=== PATIENT | female | born 1950 | race Caucasian/White ===

== ENCOUNTER → 2016-08-24 | Outpatient (CLI) | payer OTHER, MEDICAID | LOC: FIMAGING 15:27 | PROVIDERS: ATTEND Internal Medicine | DX: Z12.31 Encounter for screening mammogram for malignant neoplasm of breast (principal); Z85.3 Personal history of malignant neoplasm of breast | CPT/HCPCS: G0202 ==

== ENCOUNTER → 2016-09-21 | Outpatient (CLI) | payer OTHER, MEDICAID | LOC: FIMAGING 14:10 | PROVIDERS: ATTEND Internal Medicine | DX: Z12.39 Encounter for other screening for malignant neoplasm of breast (principal); R92.8 Other abnormal and inconclusive findings on diagnostic imaging of breast; Z85.3 Personal history of malignant neoplasm of breast | CPT/HCPCS: G0206 ==

== ENCOUNTER 2018-05-31 15:36 | Inpatient (IN) | payer OTHER, MEDICAID ==
--- NOTE | 2018-05-31 15:58 | EDPHY ---
H & P Stated Complaint: found down in living room by daughter covered in urine/feces, FTT Time Seen by Provider: 05/31/18 15:38 HPI/ROS: CHIEF COMPLAINT: Confusion, found down covered in feces HISTORY OF PRESENT ILLNESS: The patient presents the emergency department after she was found down by family members today. The patient lives independently but fell earlier today. She was unable to get up today. She was covered in urine and feces. Family endorses symptoms of acute confusion. The patient denies acute headache. The patient does report following. She complains of pain and left ankle and leg. The patient denies any acute numbness or weakness. She denies cough or congestion. Patient denies any diarrhea or gastrointestinal symptoms. The patient is unable to walk secondary to from global weakness. The patient is anticoagulated for a heart valve replacement. She also has a history of diabetes and coronary artery disease. She also has a history of chronic lower extremity edema. The patient also sustained a skin tear to her right upper extremity. She denies any difficulty moving her right arm or discomfort. REVIEW OF SYSTEMS: A comprehensive 10 point review of systems is otherwise negative aside from elements mentioned in the history of present illness. Source: Patient, Family Exam Limitations: No limitations - Personal History Tetanus Vaccine Date: unsure - Medical/Surgical History Hx Asthma: No Hx Chronic Respiratory Disease: No Hx Diabetes: Yes Hx Cardiac Disease: Yes Hx Renal Disease: No Hx Cirrhosis: No Hx Alcoholism: No Hx HIV/AIDS: No Hx Splenectomy or Spleen Trauma: No - Social History Smoking Status: Former smoker - Physical Exam Exam: General Appearance: Obese femoral, disheveled, uncapped Head: Atraumatic Eyes: Pupils equal, round, reactive ENT, Mouth: Dry mucous membranes, no oral trauma Neck: Nontender, trachea midline Respiratory: No chest wall tender, no subcutaneous air, lungs clear bilaterally Cardiovascular: Regular rate and rhythm, 2/6 systolic ejection murmur Abdomen: Abdomen is soft and nontender, pelvis stable Skin: Skin tear noted to right upper extremity Back: No midline T/L/S pain Extremities: Tenderness and swelling and crepitus noted to the left ankle, normal range of motion of the hips noted bilaterally Neurological: Alert and oriented x2, no gross motor deficits noted Constitutional: Initial Vital Signs Temperature (C) 36.5 C 05/31/18 15:45 Heart Rate 83 05/31/18 15:45 Respiratory Rate 16 05/31/18 15:45 Blood Pressure 90/72 L 05/31/18 15:45 O2 Sat (%) 97 05/31/18 15:45 O2 Delivery Mode Room Air O2 (L/minute) 2 Allergies/Adverse Reactions: No Allergies [NKDA] Allergy (Verified 11/05/11 23:47) Home Medications: Medication Instructions Recorded Atorvastatin Calcium [Lipitor 40 40 mg PO HS 05/31/18 mg (*)] Calcitriol [Calcitriol (*)] 0.25 mcg PO TU 05/31/18 Carvedilol [Coreg (*)] 25 mg PO BIDMEAL 05/31/18 DULoxetine [Cymbalta 30 MG (*)] 30 mg PO DAILY 05/31/18 Furosemide [Lasix 20 MG (*)] 60 mg PO BID 05/31/18 Insulin Glargine [Lantus] 50 unit SC DAILY@12 05/31/18 Sodium Bicarbonate [Na Bicarb 650 650 mg PO BID 05/31/18 MG (RX)] Warfarin Sodium [Coumadin 5MG (*)] 2.5 mg PO DAILY16 05/31/18 amLODIPine BESYLATE [Norvasc 10 mg 10 mg PO DAILY 05/31/18 (*)] Medical Decision Making - Diagnostics EKG Interpretation: EKG: Complete interpretation has been separately recorded in the [facility] archive. Summary impression: Atrial fibrillation, rate 78, no ischemic changes noted Imaging Results: Imaging Impressions Chest X-Ray 05/31/18 15:42 Impression: Progression to severe cardiomegaly with findings of mild pulmonary edema/fluid overload, superimposed pneumonia cannot be radiographically excluded. Ankle X-Ray 05/31/18 15:45 Impression: Negative for fracture. Left Ankle Series, 3 Views History: Pain following trauma. Findings: There is an angulated and displaced fracture of the distal shaft of the fibula. There are displaced fractures of the medial and posterior malleoli. The ankle mortise is disrupted with medial subluxation of the distal tibia with respect to the talar dome. Soft tissue swelling is noted and there is also subcutaneous edema in the lower leg. Vascular calcifications are noted. Impression: Trimalleolar fracture dislocation of the left ankle. Pelvis X-Ray 05/31/18 15:45 Impression: Negative for fracture. Left Ankle Series, 3 Views History: Pain following trauma. Findings: There is an angulated and displaced fracture of the distal shaft of the fibula. There are displaced fractures of the medial and posterior malleoli. The ankle mortise is disrupted with medial subluxation of the distal tibia with respect to the talar dome. Soft tissue swelling is noted and there is also subcutaneous edema in the lower leg. Vascular calcifications are noted. Impression: Trimalleolar fracture dislocation of the left ankle. Cervical Spine CT 05/31/18 17:06 Impression: 1. There is no acute intracranial abnormality identified on this unenhanced study. 2. Accelerated atrophy with extensive chronic microvascular ischemic gliosis. 3. 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 4. Asymmetric subcortical encephalomalacia in the posterior superior left frontal region, new since 2012. 5. Bilateral temporomandibular joint subluxations. 6. Posterior/superior right parietal subgaleal seroma, with no intra or extra- axial fluid collection. There is no evidence of a skull fracture. UNENHANCED CT SCAN OF THE CERVICAL SPINE Technique: A multidetector unenhanced helical CT scan was obtained from the clivus caudally through the upper thoracic spine, with images reformatted at 1.50 mm increments, and are reviewed in soft tissue, bone, and lung windows. Parasagittal and paracoronal reconstructed images are reviewed on the workstation. The DFOV is 12.5 cm. A dose reduction protocol was used. Findings: The patient's head is tilted to the right and there is a mild levo- cervical curvature; there is also reversal of the normal cervical lordosis. These could be related to positioning and/or underlying muscle spasm. The vertebral body heights are maintained. There is a trace degenerative retrolisthesis at C3-C4 and a trace degenerative anterolisthesis at C4-C5, and there is degenerative disk space narrowing at C3-C4, C4-C5, C5-C6, and C6-C7. There are accompanying ventral and dorsal traction osteophytes. There is no acute fracture identified. There is no facet malalignment. The interspinous distances are normal. The lateral masses of C1 and C2 are aligned, and the base and the tip of the dens are normal. The predental space is normal. There is no paravertebral or epidural hematoma observed. The visualized prevertebral soft tissues are unremarkable. There appears to be a small right posterior pleural effusion. There is no evidence of an apical pneumothorax. The visualized superior mediastinal structures are notable for some atherosclerotic calcifications and prior sternotomy wires. At the C1-C2 level, there is a normal AP canal diameter. At the C2-C3 level, there is preservation of disk space height, with no significant central canal or neural foraminal stenosis. There is some asymmetric left-sided facet hypertrophy. At the C3-C4 level, there is moderate severe degenerative disk space narrowing with the aforementioned trace retrolisthesis. There is a dorsal disk osteophyte complex which results in a moderate degree of central canal stenosis. There is uncovertebral degenerative spondylosis resulting in moderate right neural foraminal stenosis. There is also some accompanying facet hypertrophy seen bilaterally at this level. At the C4-C5 level, there is moderate degenerative disk space narrowing. There is a dorsal disk osteophyte complex resulting in moderate central canal stenosis. Bilateral facet hypertrophy and uncovertebral degenerative spondylosis result in mild degrees of bilateral neural foraminal narrowing, left greater than right. At the C5-C6 level, there is severe degenerative disk space narrowing. There is a dorsal disk osteophyte complex and severe central canal stenosis, narrowing the AP diameter to 8.6 mm. There is facet hypertrophy and uncovertebral degenerative spondylosis, resulting in mild to moderate bilateral neural foraminal stenoses. At the C6-C7 level, there is severe degenerative disk space narrowing, and there is a dorsal disk osteophyte complex which results in severe central canal stenosis with an AP canal diameter 7.8 mm. Facet hypertrophy and uncovertebral degenerative spondylosis results in moderate bilateral neural foraminal stenosis. At the C7-T1 level, there is mild bilateral facet hypertrophy. The central canal neural foramina remain patent. Impression: 1. Secondary features suggestive of underlying muscle spasm. 2. There is no acute fracture identified. 3. Multilevel advanced degenerative spondylosis and disk disease with facet osteoarthropathy resulting in variable degrees of central canal neural foraminal stenoses, as above-detailed, greatest at the C5-C6 and C6-C7 levels. If there is further clinical concern regarding the patient's symptoms, correlative MR imaging could be considered, if otherwise not contraindicated. Findings were discussed with Marcello Lemus MD at 18:08, on 05/31/2018. Head CT 05/31/18 17:06 Impression: 1. There is no acute intracranial abnormality identified on this unenhanced study. 2. Accelerated atrophy with extensive chronic microvascular ischemic gliosis. 3. 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 4. Asymmetric subcortical encephalomalacia in the posterior superior left frontal region, new since 2012. 5. Bilateral temporomandibular joint subluxations. 6. Posterior/superior right parietal subgaleal seroma, with no intra or extra- axial fluid collection. There is no evidence of a skull fracture. UNENHANCED CT SCAN OF THE CERVICAL SPINE Technique: A multidetector unenhanced helical CT scan was obtained from the clivus caudally through the upper thoracic spine, with images reformatted at 1.50 mm increments, and are reviewed in soft tissue, bone, and lung windows. Parasagittal and paracoronal reconstructed images are reviewed on the workstation. The DFOV is 12.5 cm. A dose reduction protocol was used. Findings: The patient's head is tilted to the right and there is a mild levo- cervical curvature; there is also reversal of the normal cervical lordosis. These could be related to positioning and/or underlying muscle spasm. The vertebral body heights are maintained. There is a trace degenerative retrolisthesis at C3-C4 and a trace degenerative anterolisthesis at C4-C5, and there is degenerative disk space narrowing at C3-C4, C4-C5, C5-C6, and C6-C7. There are accompanying ventral and dorsal traction osteophytes. There is no acute fracture identified. There is no facet malalignment. The interspinous distances are normal. The lateral masses of C1 and C2 are aligned, and the base and the tip of the dens are normal. The predental space is normal. There is no paravertebral or epidural hematoma observed. The visualized prevertebral soft tissues are unremarkable. There appears to be a small right posterior pleural effusion. There is no evidence of an apical pneumothorax. The visualized superior mediastinal structures are notable for some atherosclerotic calcifications and prior sternotomy wires. At the C1-C2 level, there is a normal AP canal diameter. At the C2-C3 level, there is preservation of disk space height, with no significant central canal or neural foraminal stenosis. There is some asymmetric left-sided facet hypertrophy. At the C3-C4 level, there is moderate severe degenerative disk space narrowing with the aforementioned trace retrolisthesis. There is a dorsal disk osteophyte complex which results in a moderate degree of central canal stenosis. There is uncovertebral degenerative spondylosis resulting in moderate right neural foraminal stenosis. There is also some accompanying facet hypertrophy seen bilaterally at this level. At the C4-C5 level, there is moderate degenerative disk space narrowing. There is a dorsal disk osteophyte complex resulting in moderate central canal stenosis. Bilateral facet hypertrophy and uncovertebral degenerative spondylosis result in mild degrees of bilateral neural foraminal narrowing, left greater than right. At the C5-C6 level, there is severe degenerative disk space narrowing. There is a dorsal disk osteophyte complex and severe central canal stenosis, narrowing the AP diameter to 8.6 mm. There is facet hypertrophy and uncovertebral degenerative spondylosis, resulting in mild to moderate bilateral neural foraminal stenoses. At the C6-C7 level, there is severe degenerative disk space narrowing, and there is a dorsal disk osteophyte complex which results in severe central canal stenosis with an AP canal diameter 7.8 mm. Facet hypertrophy and uncovertebral degenerative spondylosis results in moderate bilateral neural foraminal stenosis. At the C7-T1 level, there is mild bilateral facet hypertrophy. The central canal neural foramina remain patent. Impression: 1. Secondary features suggestive of underlying muscle spasm. 2. There is no acute fracture identified. 3. Multilevel advanced degenerative spondylosis and disk disease with facet osteoarthropathy resulting in variable degrees of central canal neural foraminal stenoses, as above-detailed, greatest at the C5-C6 and C6-C7 levels. If there is further clinical concern regarding the patient's symptoms, correlative MR imaging could be considered, if otherwise not contraindicated. Findings were discussed with Marcello Lemus MD at 18:08, on 05/31/2018. CT head without contrast: Subgaleal hematoma without evidence of skull fracture or intracranial hemorrhage. New haynes-white moderate changes noted. CT cervical spine without contrast: Negative for acute fracture. ED Course/Re-evaluation: The patient presents the ED after mechanical fall earlier today which resulted in a trimalleolar ankle fracture. The patient is anticoagulated. She has no complaints of headache but does seem slightly confused per family. She has taken for noncontrast CT scan of the head and cervical spine. The patient had a Archuleta catheter placed in the emergency department. The patient is placed in a 3 way posterior ortho glass splint. Consultation was made with Dr. Chandrakant Rodriguez from the orthopedic service who will see the patient in consultation. Differential Diagnosis: Differential diagnosis considered includes intracranial hemorrhage, cervical spine fracture, ankle fracture, pelvic fracture, pneumonia, urinary tract infection, rhabdomyolysis, renal failure - Data Points Laboratory Results: 05/31/18 05/31/18 16:25 16:00 Creatine Kinase 59 IU/L IU/L (0-156) Urine Color YELLOW Urine Appearance HAZY Urine pH 5.0 (5.0-7.5) Ur Specific Butler 1.017 (1.002-1.030) Urine Protein 2+ H (NEGATIVE) Urine Ketones NEGATIVE (NEGATIVE) Urine Blood 1+ H (NEGATIVE) Urine Nitrate NEGATIVE (NEGATIVE) Urine Bilirubin NEGATIVE (NEGATIVE) Urine Urobilinogen 2.0 EU H EU (0.2-1.0) Ur Leukocyte Esterase 1+ H (NEGATIVE) Urine RBC 1-3 /hpf /hpf (0-3) Urine WBC 25-50 /hpf H /hpf (0-3) Ur Epithelial Cells TRACE /lpf /lpf (NONE-1+) Amorphous Sediment PRESENT /hpf /hpf (NONE-1+) Urine Bacteria 1+ /hpf H /hpf (NONE SEEN) Urine Mucus TRACE /lpf /lpf (NONE-1+) Urine Glucose NEGATIVE (NEGATIVE) Medications Given: Discontinued Medications Ceftriaxone Sodium 2 gm/ (Sodium Chloride) 50 mls @ 100 mls/hr IV EDNOW ONE PRN Reason: Protocol Stop: 05/31/18 18:29 Last Admin: 05/31/18 18:26 Dose: 50 mls Departure - Departure Disposition: [facility] Acute Clinical Impression: UTI (urinary tract infection), Peripheral edema, Skin tear of right upper arm without complication, Atrial fibrillation Trimalleolar fracture of ankle, closed Qualifiers: Encounter type: initial encounter Laterality: left Qualified Code(s): S82.852A - Displaced trimalleolar fracture of left lower leg, initial encounter for closed fracture Condition: Fair
[2018-05-31 16:23] LABS: CREATINE KINASE 59 IU/L (0-156)
[2018-05-31 17:49] LABS: PLATELET COUNT 235 10^3/uL (150-400)
[2018-05-31 18:00] LABS: INR 3.49 (0.83-1.16); PROTIME(PATIENT) 33.2 SEC (12.0-15.0)
[2018-05-31] MEDS ORDERED: ONDANSETRON 4 MG/2 ML VIAL IVP PRN (18:24)
[2018-05-31] MEDS ORDERED: HYDROmorphONE/DILAUDID 1 MG/ML INJ IVP PRN (18:24)
[2018-05-31] MEDS ORDERED: D50W 25 GM/50 ML SYR IVP PRN (18:27)
--- NOTE | 2018-05-31 18:37 | CPEKG ---
Test Reason : OPEN Blood Pressure : / mmHG Vent. Rate : 078 BPM Atrial Rate : 000 BPM P-R Int : 156 ms QRS Dur : 075 ms QT Int : 461 ms P-R-T Axes : 000 081 086 degrees QTc Int : 526 ms Atrial fibrillation Borderline right axis deviation Low voltage, extremity and precordial leads Probable anteroseptal infarct, old Prolonged QT interval Confirmed by Marcello Lemus ([id number]) on 05/31/2018 6:37:08 PM Referred By: Prabhakar Gibson Confirmed By:Marcello Lemus
[2018-05-31] MEDS ORDERED: FUROSEMIDE 40 MG/4 ML VIAL IVP ONE (19:20)
[2018-05-31] MEDS ORDERED: CALCITRIOL 0.25 MCG CAP PO SCH (19:30)
--- NOTE | 2018-05-31 19:44 | PDGENHP ---
History and Physical - Chief Complaint Mechanical fall with injury - History of Present Illness 67 y/o female w/extensive medical history including mechanical aortic valve replaced in 2007, CVA in 2011, obesity, diabetes II, and chronic kidney disease presents to the ED via ambulance after family members found pt lying on the ground in her urine and feces w/altered mental status. She reported her left leg and ankle hurt, subsequently fracturing her left ankle. This is my first encounter w/the pt, my first time reviewing her past medical history which is quite extensive. She is alert and oriented x 3, answering my questions appropriately however seems to have some residual cognitive impairment. She tells me that she has at her bedside commode which she used today and as she was getting off it and trying to get back into bed, she slipped on something that was wet on the hardwood floors and fell; she was unable to pull herself back up d/t generalized weakness. She reports she did not hit her head or LOC. Denies chest pain, SOB, palpitations, lightheadedness. The only pain she feels is to her left ankle. She is being admitted for further work-up, treatment and monitoring. History Information - Allergies/Home Medication List Allergies/Adverse Reactions: No Allergies [NKDA] Allergy (Verified 11/05/11 23:47) Home Medications: Atorvastatin Calcium [Lipitor 40 mg (*)] 40 mg PO HS 05/31/18 [Last Taken Unknown] Calcitriol [Calcitriol (*)] 0.25 mcg PO TU 05/31/18 [Last Taken 05/29/18] Carvedilol [Coreg (*)] 25 mg PO BIDMEAL 05/31/18 [Last Taken Unknown] DULoxetine [Cymbalta 30 MG (*)] 30 mg PO DAILY 05/31/18 [Last Taken Unknown] Furosemide [Lasix 20 MG (*)] 60 mg PO BID 05/31/18 [Last Taken Unknown] Insulin Glargine [Lantus] 50 unit SC DAILY@12 05/31/18 [Last Taken 05/28/18] Sodium Bicarbonate [Na Bicarb 650 MG (RX)] 650 mg PO BID 05/31/18 [Last Taken Unknown] Warfarin Sodium [Coumadin 5MG (*)] 2.5 mg PO DAILY16 05/31/18 [Last Taken 04/22/ 19] amLODIPine BESYLATE [Norvasc 10 mg (*)] 10 mg PO DAILY 05/31/18 [Last Taken Unknown] I have personally reviewed and updated: family history, medical history, social history, surgical history Past Medical History: Chronic kidney disease, AAA s/p endograft, RA w/Felty's syndrome, hx of subdural hematoma, embolic stroke (2011), depression, atrial fibrillation, lumbar radiculopathy - Past Medical History coronary artery disease, CVA, diabetes type 2, hypertension, hyperlipidemia, TIA - Surgical History Additional surgical history: Aortic valve replacement w/mechanical valve (2007) , splenectomy (2009), cholecystectomy - Family History Positive for: non-pertinent - Social History Smoking Status: Former smoker Alcohol Use: None Drug Use: None Additional social history: Lives independently, has 2 cats Review of Systems Review of Systems: ROS: 10pt was reviewed & negative except for what was stated in HPI & below Physical Exam Physical Exam: Lab data and imaging reviewed. White blood count: 7.94 Hemoglobin hematocrit: 12.6 and 40.6 Platelet count: 235 Sodium: 141 Potassium: 5.4 Chloride: 111 Carbon dioxide: 15 BUN/Cr: 59/1.6 Creatinine kinase: 59 INR: 3.49 Urinalysis: Protein 2+, blood 1+, urinary bili chin 2.0, leukocyte x-rays 1+, white blood cells 25-50, bacteria 1+ Chest x-ray: Compared to chest x-ray from 27/01 progression to severe cardiomegaly with findings of mild pulmonary edema/fluid overload however auscultated lungs did not hear any crackles. Ankle x-ray: Trimalleolar fracture dislocation of left ankle Pelvic x-ray: No definite fracture or other acute osseous abnormality is identified. Imaging is limited d/t body habitus. Bone alignment is normal. Degenerative changes are seen involving the hips as well as the lower lumbar spine. Cervical spine CT: There is no acute fracture identified Head CT: No acute intracranial abnormality identified; stable old lacunar infarct left cerebellum compared to 2012 EKG: Atrial fibrillation, 78 bpm Temp Pulse Resp BP Pulse Ox 36.6 C 85 16 133/89 H 93 05/31/18 19:24 05/31/18 19:24 05/31/18 19:24 05/31/18 19:24 05/31/18 19:24 O2 (L/minute) 2 Constitutional: obese, uncomfortable, unkempt Eyes: PERRL, anicteric sclera, EOMI Ears, Nose, Mouth, Throat: hearing normal, ears appear normal, no oral mucosal ulcers, poor dentition, dry mucous membranes Cardiovascular: no murmur, rub, or gallop, irregularly irregular Peripheral Pulses: 1+: dorsalis-pedis (R), dorsalis-pedis (L) Respiratory: reduced air movement Gastrointestinal: soft, non-tender abdomen, no palpable masses, other ( Hypoactive BS) Genitourinary: perez in urethra Skin: other (RUE wrapped w/gauze d/t apparent skin tear; bruising noted to RUE, fragile appearing skin) Musculoskeletal: pain with ROM (Left ankle), generalized weakness Neurologic: sensation intact bilaterally, other (During my evaluation, she answered my questions appropriately and was A&Ox3) Psychiatric: interacting appropriately, not anxious, not encephalopathic, thought process linear Lymph, Heme, Immunologic: no cervical LAD, no supraclavicular LAD Lab Data & Imaging Review 05/31/18 17:40 05/31/18 17:38 WBC 7.94 10^3/uL (3.80-9.50) 05/31/18 17:40 RBC 4.12 10^6/uL (4.18-5.33) L 05/31/18 17:40 Hgb 12.6 g/dL (12.6-16.3) 05/31/18 17:40 Hct 40.6 % (38.0-47.0) 05/31/18 17:40 MCV 98.5 fL (81.5-99.8) 05/31/18 17:40 MCH 30.6 pg (27.9-34.1) 05/31/18 17:40 MCHC 31.0 g/dL (32.4-36.7) L 05/31/18 17:40 RDW 19.8 % (11.5-15.2) H 05/31/18 17:40 Plt Count 235 10^3/uL (150-400) 05/31/18 17:40 MPV 11.5 fL (8.7-11.7) 05/31/18 17:40 Neut % (Auto) 82.1 % (39.3-74.2) H 05/31/18 17:40 Lymph % (Auto) 8.9 % (15.0-45.0) L 05/31/18 17:40 [place] % (Auto) 7.2 % (4.5-13.0) 05/31/18 17:40 Eos % (Auto) 0.9 % (0.6-7.6) 05/31/18 17:40 Baso % (Auto) 0.5 % (0.3-1.7) 05/31/18 17:40 Nucleat RBC Rel Count 0.5 % (0.0-0.2) H 05/31/18 17:40 Absolute Neuts (auto) 6.52 10^3/uL (1.70-6.50) H 05/31/18 17:40 Absolute Lymphs (auto) 0.71 10^3/uL (1.00-3.00) L 05/31/18 17:40 Absolute Monos (auto) 0.57 10^3/uL (0.30-0.80) 05/31/18 17:40 Absolute Eos (auto) 0.07 10^3/uL (0.03-0.40) 05/31/18 17:40 Absolute Basos (auto) 0.04 10^3/uL (0.02-0.10) 05/31/18 17:40 Absolute Nucleated RBC 0.04 10^3/uL (0-0.01) H 05/31/18 17:40 Immature Gran % 0.4 % (0.0-1.1) 05/31/18 17:40 Immature Gran # 0.03 10^3/uL (0.00-0.10) 05/31/18 17:40 Platelet Estimate ADEQUATE (ADEQ) 05/31/18 17:40 Polychromasia 1+ H 05/31/18 17:40 Oval Macrocytes 2+ H 05/31/18 17:40 Elliptocytes 1+ H 05/31/18 17:40 Acanthocytes (Spur) 2+ H 05/31/18 17:40 Schistocytes 1+ H 05/31/18 17:40 PT 33.2 SEC (12.0-15.0) H 05/31/18 17:40 INR 3.49 (0.83-1.16) H 05/31/18 17:40 APTT 45.9 SEC (23.0-38.0) H 05/31/18 17:40 Sodium 141 mEq/L (135-145) 05/31/18 17:38 Potassium 5.4 mEq/L (3.5-5.2) H 05/31/18 17:38 Chloride 111 mEq/L (97-110) H 05/31/18 17:38 Carbon Dioxide 15 mEq/l (22-31) L 05/31/18 17:38 Anion Gap 15 mEq/L (6-14) H 05/31/18 17:38 BUN 59 mg/dL (7-23) H 05/31/18 17:38 Creatinine 1.6 mg/dL (0.6-1.0) H 05/31/18 17:38 Estimated GFR 32 05/31/18 17:38 Glucose 149 mg/dL (70-100) H 05/31/18 17:38 Calcium 9.1 mg/dL (8.5-10.4) 05/31/18 17:38 Total Bilirubin 1.8 mg/dL (0.1-1.4) H 05/31/18 17:38 AST 28 IU/L (14-46) 05/31/18 17:38 ALT 31 IU/L (9-52) 05/31/18 17:38 Alkaline Phosphatase 425 IU/L (38-126) H 05/31/18 17:38 Creatine Kinase 59 IU/L (0-156) 05/31/18 16:00 Total Protein 7.7 g/dL (6.3-8.2) 05/31/18 17:38 Albumin 3.5 g/dL (3.5-5.0) 05/31/18 17:38 Urine Color YELLOW 05/31/18 16:25 Urine Appearance HAZY 05/31/18 16:25 Urine pH 5.0 (5.0-7.5) 05/31/18 16:25 Ur Specific [place] 1.017 (1.002-1.030) 05/31/18 16:25 Urine Protein 2+ (NEGATIVE) H 05/31/18 16:25 Urine Ketones NEGATIVE (NEGATIVE) 05/31/18 16:25 Urine Blood 1+ (NEGATIVE) H 05/31/18 16:25 Urine Nitrate NEGATIVE (NEGATIVE) 05/31/18 16:25 Urine Bilirubin NEGATIVE (NEGATIVE) 05/31/18 16:25 Urine Urobilinogen 2.0 EU (0.2-1.0) H 05/31/18 16:25 Ur Leukocyte Esterase 1+ (NEGATIVE) H 05/31/18 16:25 Urine RBC 1-3 /hpf (0-3) 05/31/18 16:25 Urine WBC 25-50 /hpf (0-3) H 05/31/18 16:25 Ur Epithelial Cells TRACE /lpf (NONE-1+) 05/31/18 16:25 Amorphous Sediment PRESENT /hpf (NONE-1+) 05/31/18 16:25 Urine Bacteria 1+ /hpf (NONE SEEN) H 05/31/18 16:25 Urine Mucus TRACE /lpf (NONE-1+) 05/31/18 16:25 Urine Glucose NEGATIVE (NEGATIVE) 05/31/18 16:25 Assessment & Plan Plan: 67 y/o female w/extensive medical history presenting w/mechanical fall w/injury and altered mental status, subsequently fracturing her left ankle and having a RUE skin tear. Her vital signs are the following: Blood pressure 143/67, heart rate 78, respirations 18, temperature 36.5 degrees, oxygen saturation 95% on 2 L nasal cannula #Trimalleolar fracture of ankle, closed (Acute) -Orthopedics has been consulted. Dr. Rodriguez to surgically repair ankle. Initially thought this would happen tomorrow morning however d/t pt's extensive medical history and current complications - most likely will not happen but will keep her NPO at midnight for the slight chance. -Splinted in ED; perez catheter placed -Pain management PO/IVP PRN -PT/OT to evaluate and treat -LLE NWB -Message out to Dr. Rodriguez to discuss case #Peripheral edema/Pulmonary HTN -Lasix IVP one time tonight; cont home Lasix in AM -CBC/CMP in AM #Skin tear of right upper arm without complication -Supportive care PRN #Urinary tract infection -Urine culture pending -Asymptomatic, afebrile, no leukocytosis -Received Rocephin in ED; will hold off on continuing abx for the time being and wait for culture unless she becomes symptomatic -CBC/CMP in AM Other chronic medical problems: #Diabetes II: Checking A1c. ISS in house, glucose checks TID before meals. Cont home glargine. #Obesity: BMI 36, complicates all levels of care. Dietary consult. #CKD IV: Dr. Silva has been her water treatment operator. It was believed CKD was caused from her DM medications (metformin). BUN/Cr 59/1.6 which is stable for her. She is on sodium bicarbonate and calcitriol. Avoid nephrotoxic agents. #Hx of CVA: Occurred in 2011. #Mechanical aortic valve replacement: anti-coagulated w/coumadin w/INR being 3.49 w/therapeutic range 2.5-3.5. Holding coumadin tonight and will recheck INR in AM. Ideally, her INR decreases and can initiate a heparin drip. ECHO pending; ECHO performed in November 2017, revealed EF 55%; left atrium severely dilated and no prosthesis regurg; mild to moderate tricuspid valve regurg and RVSP 46 mmHg. #Atrial fibrillation: Cont tele monitoring. #HTN: cont home amlodipine and carvedilol Diet: Carb-controlled, NPO at midnight tonight for possible surgery in AM however unlikely Code: Full VTE ppx: SCDs Dispo: Admit to inpatient
--- NOTE | 2018-05-31 19:45 | HOSPPROG ---
Hospitalist Progress Note Assessment/Plan: Case discussed with Polly Atkinson TARIFF CLERK. Agree with plan outlined in her note with the following exceptions: Briefly, 67yo F with mechanical aortic valve on warfarin, atrial fibrillation, thromboembolic stroke while off anticoagulation in 2011, CKD stage 3, infrarenal AAA s/p stent, T2DM presents from home after being found down. She remembers slipping on her urine this morning and fell between her bed and a table. She did not lose consciousness or strike her head. No recent chest pain or worsening shortness of breath. She has chronic leg edema which hasn't changed significantly. She does have chronic difficulty with walking due to prior stroke and arthritis. Her daughter found her this afternoon. She was reportedly confused at that time. She was brought in by EMS. In the ED, she was found to have a trimalleolar fracture of her left ankle. CT of her head did not show any intracranial bleed. Dr Rodriguez was consulted and her left ankle was splinted. Exam: Alert, oriented, morbidly obese. Irregularly irregular with normal HR on cardiac exam. Lungs diminished at bases without wheezing. Abdomen distended but soft and nontender. Archuleta catheter in place. 1+ bilateral leg edema. Labs: WBC 7.9, hgb 12.6, plts 235, Na 141, K 5.4, Cl 111, CO2 15, BUN 59, Cr 1.6 , glucose 149. Total bilirubin 1.8, alk phos 425. INR 3.49. CK 59. UA with 2+ protein, 1+ blood, 1+ leukocyte esterase, 25-50wbcs, 1+ bacteria. ECG: Atrial fibrillation with ventricular rates in the 70s, low voltage, no right heart strain, no ischemic ST-T segment changes (interp/reviewed by me). CXR: Sternotomy wires and AV replacement. Significant cardiomegaly. Mild- moderate pulmonary edema. Difficult to assess for pleural effusions. No clear pneumonia (interp/reviewed by me). Additional Imaging. Left ankle x-ray: Trimalleolar fracture and dislocation. Pelvic x-ray: No fracture. CT head: No acute intracranial abnormality. Accelerated atrophy. Stable old lacunar infarct in left cerebellum. CT c-spine: Secondary features suggestive of underlying muscle spasm. No acute fracture identified. Assessment/Plan: #Left trimalleolar fracture: Dr Rodriguez consulted, planning on operative management (see below). Currently splinted. Pain management. #Need for anticoagulation: She is at high risk of thromboembolic event off anticoagulation as she has a mechanical AVR, atrial fibrillation, and history of thromboembolic stroke while off anticoagulation in 2011. I recommend holding her warfarin and administering IV heparin once INR<2.5. Once INR is low enough to perform surgery, the IV heparin can be stopped just prior to the operation. The patient can then be bridged with Lovenox post-operatively. I attempted to contact Dr Rodriguez this evening to discuss this plan but was unable to get ahold of him. In my opinion, reversing her anticoagulation and proceeding with surgery tomorrow would put her at too high a risk of another thromboembolic stroke. #Volume overload: CXR appears wet and bilateral leg edema. Will give 60mg IV lasix this evening (on 60mg BID at home) and get a TTE. #Mechanical fall: No e/o rhabdo. She uses a walker. Lives alone. PT and OT when appropriate. #Hypoxia: Requiring 2L. Mild pulm edema. Given her habitus, suspect she may require O2 chronically. Continuous pulse ox. Outpatient FABIAN eval. #Mechanical AVR: Stable gradients on 11/2017 echo. INR goal 2.5-3.5. #H/o cardioembolic CVA: Occurred in 2011 after she had been off anticoagulation for subdural hematoma. Residual mild R weakness. #Atrial fibrillation: Rates controlled. [id number]. Anticoagulation as above. #CKD: Follows with Dr Silva. Suspect near baseline Cr of 1.6. Continue sodium bicarb. #Asymptomatic pyuria: S/p IV ceftriaxone in ED. Will defer additional antibiotics as she is asymptomatic. Can follow urine culture. #Osteoporosis: Meets criteria as she had fracture from standing height. Outpatient management. #T2DM: Resume home glargine and start SSI. #Hyperkalemia: Mild. No ECG changes. Will diurese as above and recheck. #Acute metabolic encephalopathy: Resolved on my examination. #H/o subdural hematoma in 2010 (non-operative management) #H/o infrarenal AAA s/p stent graft repair. 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 She is not neutropenic here. #HTN: Continue coreg and amlodipine. Code: full Dispo: admit as inpatient, will likely require >2 midnights given complexity of medical care Objective: Vital Signs Temp Pulse Resp BP Pulse Ox 36.6 C 85 16 133/89 H 93 05/31/18 19:24 05/31/18 19:24 05/31/18 19:24 05/31/18 19:24 05/31/18 19:24 Laboratory Results 05/31/18 17:40 05/31/18 17:38 05/30/18 05/31/18 06/01/18 05:59 05:59 05:59 Output Total 150 Balance -150 PT 33.2 SEC (12.0-15.0) H 05/31/18 17:40 INR 3.49 (0.83-1.16) H 05/31/18 17:40 ICD10 Worksheet Patient Problems: Problems Problem Status Onset Atrial fibrillation Acute Peripheral edema Acute Skin tear of right upper arm without complication Acute Trimalleolar fracture of ankle, closed Acute UTI (urinary tract infection) Acute Cerebral infarction Active
[2018-05-31] MEDS: INSULIN GLARGINE 100 UNITS/ML UNIT SC SCH (20:58)
[2018-05-31] MEDS: ATORVASTATIN CALCIUM 40 MG TAB PO SCH (20:58)
[2018-05-31] MEDS: SODIUM BICARBONATE 650 MG TAB PO SCH (20:58)
[2018-05-31] MEDS: oxyCODONE IR 5 MG TAB PO PRN (21:27)
[2018-05-31] MEDS: CALCITRIOL 0.25 MCG CAP PO SCH (23:21)
[2018-06-01] MEDS: ACETAMINOPHEN 325 MG TAB PO PRN ×3 (01:58→16:24)
[2018-06-01 05:24] LABS: PLATELET COUNT 244 10^3/uL (150-400)
[2018-06-01 05:25] LABS: INR 3.38 (0.83-1.16); PROTIME(PATIENT) 32.4 SEC (12.0-15.0)
--- NOTE | 2018-06-01 08:10 | PDMN ---
Medical Necessity Medical necessity: MCG S100 ankle fx, closed, ORIF ( pend) : extended care needed due to pts comorbidities. 67 yo F with fall found to have L trimalleolar fx. , [facility], [facility], Afib, thromboembolic stroke while off anticoagulation in 2011, CKD stage 3, infrarenal AAA s/p stent, T2DM, morbid obesity, PT high risk for sgy will need to monitor INR prior to sgy, hypoxia req 2L O2, vol. overload will give IV Lasix, UTI, anticipate > 2 MN ongoing med nec care- further monitoring and tx ( sgy pend)
[2018-06-01] MEDS: SODIUM BICARBONATE 650 MG TAB PO SCH ×3 (08:26→21:56)
[2018-06-01] MEDS: FUROSEMIDE 20 MG TAB PO SCH ×2 (08:27→15:12)
[2018-06-01] MEDS: DULoxetine 30 MG CAP PO SCH (08:27)
[2018-06-01] MEDS: INSULIN LISPRO 100 UNIT/ML SC SCH ×3 (08:28→18:16)
[2018-06-01] MEDS: CARVEDILOL 25 MG TAB PO SCH ×2 (08:28→18:20)
[2018-06-01] MEDS ORDERED: FUROSEMIDE 20 MG TAB PO SCH (09:00)
--- NOTE | 2018-06-01 09:27 | HOSPPROG ---
Hospitalist Progress Note Assessment/Plan: #Left trimalleolar fracture: Dr Rodriguez consulted, planning on operative management (see below). Currently splinted. Pain management. -likely SNF at [place], she is agreeable #High thromboembolic risk: -given atrial fibrillation, mech AVR and embolic CVA, needs anticoagulation up to surgery and no reversal -heparin gtt once INR <2.5 then Lovenox/Coumadin bridge -d/w Dr. Rodriguez. Plan on surgery once INR <2 #Volume overload -cont IV lasix, monitor lytes -weight, I&O #h/o cardioembolic CVA: 2011 when off ACf for SDH #Atrial fibrillation: CHADsVasc 7; very high-risk for recurrent event off AC #CKD: Cr at BL, cont bicarb #Pyuria: no sxs. Hold off abx #Osteoporosis: Meets criteria as she had fracture from standing height. Outpatient management. #DM2: glargine and start SSI. #Hyperkalemia: resolved after diuresis. No peaked T-waves (EKG personally reviewed) #Acute metabolic encephalopathy: Resolved #LUE edema: diuresis. INR therapeutic #H/o subdural hematoma in 2010 (non-operative management) #H/o infrarenal AAA: s/p stent graft repair. 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 She is not neutropenic here. #HTN: Coreg and amlodipine. #Diet: low Na, fluid restriction Disp: inpatient admission for INR, surgical procedure Subjective: min in pain in right foot Objective: Vital Signs Temp Pulse Resp BP Pulse Ox 37.1 C 81 19 148/73 H 92 06/01/18 07:29 06/01/18 07:29 06/01/18 07:29 06/01/18 07:29 06/01/18 07:29 Laboratory Results 06/01/18 04:37 06/01/18 04:37 05/31/18 06/01/18 06/02/18 05:59 05:59 05:59 Intake Total 500 Output Total 1750 Balance -1250 PT 32.4 SEC (12.0-15.0) H 06/01/18 04:37 INR 3.38 (0.83-1.16) H 06/01/18 04:37 - Time Spent With Patient Time Spent with Patient: greater than 35 minutes Time Spent with Patient: Greater than 35 minutes spent on this patients care, greater than 50% of time spent counseling, educating, and coordinating care regarding the above mentioned plan. - Physical Exam Constitutional: obese, other (anxious, tearful) Ears, Nose, Mouth, Throat: moist mucous membranes Cardiovascular: regular rate and rhythym, edema (+ pitting edema right leg) Respiratory: No inspiratory crackles Gastrointestinal: normoactive bowel sounds Musculoskeletal: other (left foot splinted. LUE with +1 edema) Neurologic: AAOx3, CN II-XII Intact Psychiatric: anxious ICD10 Worksheet Patient Problems: Problems Problem Status Onset Atrial fibrillation Acute Peripheral edema Acute Skin tear of right upper arm without complication Acute Trimalleolar fracture of ankle, closed Acute UTI (urinary tract infection) Acute Cerebral infarction Active
--- NOTE | 2018-06-01 09:37 | ASMTLACE ---
HERIBERTO Acuity / Level of Answers: Yes Care: Did the patient have an inpatient admission? Comorbidities - select Answers: Cerebrovascular disease all that apply (CVA, TIA, aneurysms, vasc ular dementia) Coronary Artery Disease Diabetes (uncontrolled or controlled) Moderate or severe liver or renal disease Other Notes: HTN; HLD # of Emergency department Answers: 1-2 visits in the last 6 months Social determinants Answers: Mental health diagnosis (anxiety, depression, pers onality disorders, etc.) Score: 16 Date Signed: 06/01/2018 09:36 AM Electronically Signed By:Eileen Fuller
[2018-06-01] MEDS: oxyCODONE IR 5 MG TAB PO PRN ×2 (12:16→15:12)
--- NOTE | 2018-06-01 13:32 | GCON ---
[f rep st] CONSULTATION ORTHOPEDIC CONSULTATION DATE OF CONSULTATION: 06/01/2018 REASON FOR CONSULTATION: Ankle fracture. HISTORY OF PRESENT ILLNESS: The patient is a pleasant 67-year-old female who lives alone who fell at some point, was found down, brought to the emergency department, found to have a trimalleolar left a nkle fracture. This was closed reduced in the ER. She has been admitted to the [facility]. I was consulted for discussion of the ankle fracture. I reviewed thi s case with Dr. Falk today. Given her high risk for thromboembolic event currently on Coumadin, wh ich her INR today was 3.38, she will need to go on to heparin once her INR comes down less than 2.5 a nd will plan on surgery once her Coumadin is less than 2 and she is otherwise medically stable. PRIOR MEDICAL HISTORY: Coronary artery disease, cerebrovascular accident, type 2 diabetes, hypertens ion, hyperlipidemia, TIAs. SURGICAL HISTORY: Aortic valve replacement in 2007, splenectomy, cholecystectomy. MEDICATIONS: See attached medication list. ALLERGIES: No known drug allergies. SOCIAL HISTORY: She does live alone. Does not smoke or drink alcohol. She is a former smoker. PHYSICAL EXAM: GENERAL: She is alert and oriented x3. Answers questions appropriately. VITAL SIGN S: Today on the floor, blood pressure is 148/73, heart rate 81, respiratory rate is 18, oxygen satur ation is 92% on 2 L, temperature is 37.1. HEENT: Normocephalic, atraumatic. Extraocular muscles in tact. NECK: Supple. There is no lymphadenopathy. No JVD. CHEST: Clear to auscultation. EXTREMI TIES: She has multiple scratches on her right arm, these were dressed. Left ankle is splinted. The splint is fitting appropriately. She has some swelling in the toes sensation. Light touch intact t o all her toes. Brisk capillary refill. X-RAYS: Three views of the ankle, trimalleolar ankle fracture. ASSESSMENT: Displaced ankle fracture, left. PLAN: Will work on getting her INR less than 2. We will get her medically optimized. She will need to go on heparin when she is less than 2.5. She is at a high risk for thromboembolic event. Contin ue the splint. Continue nonweightbearing left lower extremity.. /[id number]/MODL
[2018-06-01] MEDS: INSULIN GLARGINE 100 UNITS/ML UNIT SC SCH (13:37)
--- NOTE | 2018-06-01 14:56 | ECHO ---
[email or web address] [address] Main: [phone] Echocardiography Examination Transthoracic Name: DAMON CAMPOS MR#: [id number] Study Date: 06/01/2018 Study Time: 07:55 AM Date of : 1950 Age: 67 year(s) Height: 170.2 cm (67 in.) Weight: 104.33 kg (230 lb.) BSA: 2.15 m2 Gender: Female Examination: Echo Contrast: Image Quality: Adequate parasternal window, technically Rhythm: Atrial fibrillation difficult apical window. Heart Rate: 81 bpm BP: 148 mmHg/73 mmHg Indication: Questionable syncopal event, pre-op, h/o AVR Procedure Staff Referring Physician: Spreading Machine Operator: Lynnette Martin [facility] Reading Physician: Geetha Serrano MD Requesting Provider: Ordering Physician: Samina Atkinson Indication: Questionable syncopal event, pre-op, h/o AVR Measurements Chambers AV/MV Label Value Normal Value Label Value Normal Value LVOT VTI 19.5 cm (18cm - 22cm) AV PGmax 16 mmHg LVDd, 2D 4.8 cm (3.9cm - 5.3cm) AV PGmean 11 mmHg LVDs, 2D 3.2 cm (2.1cm - 4cm) AV Vmax 1.98 m/s IVSd, 2D 1.1 cm (0.6cm - 1.1cm) MV E Vmax 1.54 m/s LVPWd, 2D 1.1 cm MV VTI 30.4 cm LVEF, 2D 61 % (54% - 74%) MV PGmax 10 mmHg LVOT PGmean 2 mmHg MV PGmean 5 mmHg LVOT Vmean 0.64 m/s MV PHT 0.08 s RVDd, 2D 4.7 cm (1.9cm - 3.8cm) MVA PHT 2.8 cm2 TAPSE 2 cm MV PHT 78 ms LADs, 2D 4.3 cm (2.7cm - 3.8cm) TV/PV Additional Vessels Label Value Normal Value Label Value Normal Value RA Pressure 15 mmHg AoRoot, MM 2.6 cm (2.2cm - 3.7cm) RVSP 53 mmHg TR Pmax 38 mmHg TR Vmax 3.08 m/s VT End lam Alexei 0.92 cm/s PV PGmax 7 mmHg Patient: DAMON CAMPOS Study Date: 06/01/2018 Page 1 of 3 07:55 AM PV Vmax, Caliper 1.32 m/s (0.6m/s - 0.9m/s) Conclusions 1. The left ventricle is normal in size. Mild concentric LVH. Normal LV systolic function of 60-65% without obvious regional wall motion abnormality. 2. The right ventricle is moderately dilated with normal RV systolic function. 3. Moderate left atrial and moderate right atrial dilation. 4. mild mitral regurgitation. 5. The aortic valve is a bioprosthesis without regurgitation or stenosis. 6. Moderate to severe tricuspid regurgitation with moderate pulmonary hypertension estimated at 53 mm of mercury. 7. Compared with 12/01/2017 the degree of tricuspid regurgitation and pulmonary hypertension have increased. The right ventricle is more dilated. Findings Left Ventricle: Left ventricle is normal in size. Normal global systolic left ventricular function. EF range is estimated at 60 % - 65 %. There is mild concentric left ventricular hypertrophy. Although no diagnostic regional wall motion abnormality was identified, this possibility cannot be completely excluded on the basis of this study. Unable to assess Diastolic Dysfunction due to atrial fibrillation/a flutter. Right Ventricle: Moderately dilated right ventricle. Right ventricular systolic function is normal. Left Atrium: The left atrium is moderately dilated. Right Atrium: The right atrium is moderately dilated. Mitral Valve: Mild mitral regurgitation. No mitral valve stenosis. There is mitral calcification. There is mild mitral thickening. There is mitral annular calcification. Aortic Valve: The aortic valve is a bioprosthesis. It exhibited normal function. No prosthesis regurgitation. Aortic Valve Measurements AV Vmax is 1.98 m/s. AV Vmean is 1.53 m/s. AV PGmax is 16 mmHg. AV PGmean is 11 mmHg. LVOT VTI / AV VTI is 0.42. Tricuspid Valve: Moderate to severe tricuspid regurgitation. No tricuspid valve stenosis. Right Ventricular systolic pressure is measured at 53 mmHg. Pulmonary artery pressure moderately increased. Pulmonic Valve: Moderate pulmonic valve regurgitation is present. Aorta: The aortic root size in M-mode measures 2.6 cm. The aortic root exhibits normal size. Aorta Measurements AoRoot, MM is 2.6 cm. IVC: The inferior vena cava is dilated. The respirophasic change in diameter is less than 50%. Pericardium: Trivial pericardial effusion. Exam Details Procedure Ordered: Echo Procedure Status: Routine study Image Quality: Adequate parasternal window, technically difficult apical window. Facility Location: Cardiac Echo 1 Patient: DAMON CAMPOS Study Date: 06/01/2018 Page 2 of 3 07:55 AM (No Signature Object) Patient: DAMON CAMPOS Study Date: 06/01/2018 Page 3 of 3 07:55 AM [id number]
--- NOTE | 2018-06-01 16:28 | ASMTCMCOM ---
CM Note CM Note Notes: Reviewed chart, pt admitted to hospital after being found down. She has an ankle fracture and will need surgical repair. Patient lives alone in an apt with 2 cats. PT/OT pending surgery DC Plan: TBD Date Signed: 06/01/2018 04:28 PM Electronically Signed By:Denise Munoz RN
[2018-06-01] MEDS: ATORVASTATIN CALCIUM 40 MG TAB PO SCH (21:56)
[2018-06-02 04:49] LABS: PLATELET COUNT 222 10^3/uL (150-400)
[2018-06-02 04:58] LABS: INR 2.95 (0.83-1.16); PROTIME(PATIENT) 29.2 SEC (12.0-15.0)
[2018-06-02] MEDS: oxyCODONE IR 5 MG TAB PO PRN ×2 (05:45→23:20)
[2018-06-02] MEDS: INSULIN LISPRO 100 UNIT/ML SC SCH ×3 (08:20→18:26)
[2018-06-02] MEDS: FUROSEMIDE 20 MG TAB PO SCH ×2 (09:48→14:54)
[2018-06-02] MEDS: DULoxetine 30 MG CAP PO SCH (09:50)
[2018-06-02] MEDS: SODIUM BICARBONATE 650 MG TAB PO SCH ×2 (09:50→21:38)
[2018-06-02] MEDS: CARVEDILOL 25 MG TAB PO SCH ×2 (09:52→18:23)
[2018-06-02] MEDS ORDERED: INSULIN GLARGINE 100 UNITS/ML UNIT SC SCH (10:56)
--- NOTE | 2018-06-02 13:58 | SOAPPROG ---
SOAP Progress Note Assessment/Plan: Assessment: Left ankle trimalleolar fracture - secondary to fall on 05-31-18; closed reduced in ER on 05-31-18 Plan: Continue to hold anticoagulation. Most recent INR 2.95. Dr. Rodriguez wants to begin heparin at 2.5 and will perform surgery once INR reaches 2.0 Continue NWBing on left lower extremity Keep splint clean, dry and intact Continue pain management Continue PT/OT efforts Subjective: Patient states she is feeling much more relaxed today. She does not have any significant pain in the left ankle at this time. She is waiting to have surgery on her left ankle. Currently Dr. Rodriguez is waiting for her INR to come down to 2.5 to start heparin and perform surgery once INR reaches 2.0. She reports not being able to get up for PT/OT. She reports feeling too tired and would prefer to just rest today. States she may try therapy tomorrow. Patient denies having shortness of breath, chest pain, fever, chills, headache, nausea. Objective: Vital Signs Temp Pulse Resp BP Pulse Ox 36.4 C 82 16 154/73 H 93 06/02/18 11:41 06/02/18 12:00 06/02/18 11:41 06/02/18 11:41 06/02/18 11:41 Laboratory Results 06/02/18 04:25 06/02/18 04:25 06/01/18 06/02/18 06/03/18 05:59 05:59 05:59 Intake Total 500 1540 118 Output Total 1750 900 Balance -1250 640 118 PT 29.2 SEC (12.0-15.0) H 06/02/18 04:25 INR 2.95 (0.83-1.16) H 06/02/18 04:25 Patient resting comfortably in bed, no acute distress. Nasal canula is in place. On the right proximal-mid forearm, she has wound dressings in place for skin tear. There is diffuse edema in the LUE. Various regions of ecchymosis noted along the upper extremities. LLE: Short leg splint is clean, dry and intact. Visible skin is intact. No edema distally in toes. Skin is warm to touch. She can actively move toes. Intact to light touch distally. Capillary refill < 3 seconds. ICD10 Worksheet Patient Problems: Problems Problem Status Onset Atrial fibrillation Acute Peripheral edema Acute Skin tear of right upper arm without complication Acute Trimalleolar fracture of ankle, closed Acute UTI (urinary tract infection) Acute Cerebral infarction Active
--- NOTE | 2018-06-02 14:39 | HOSPPROG ---
Hospitalist Progress Note Assessment/Plan: 67 year old female with hx of afib, CKD, RA, and multiple other medical problems admitted with a left trimalleolar fracture. #Left trimalleolar fracture: Dr Rodriguez consulted, planning on operative management (see below). Currently splinted. Pain management. INR 2.9 today. -likely SNF at [place], she is agreeable -start heparin gtt once INR below 2.5 #High thromboembolic risk: -given atrial fibrillation, mech AVR and embolic CVA, needs anticoagulation up to surgery and no reversal -heparin gtt once INR <2.5 then Lovenox/Coumadin bridge -d/w Dr. Rodriguez. 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 creatinine climbing today. Follows with Dr. Silva. If creatinine continues to climb, will consult nephrology while here. #Pyuria: no sxs. Hold off abx #Osteoporosis: Meets criteria as she had fracture from standing height. Outpatient management. #DM2: glargine and start SSI. Hypoglycemic today on home dose of 50 units of lantus. Will decrease 20% and cont ssi. #Hyperkalemia: resolved after diuresis. No peaked T-waves (EKG personally reviewed) #Acute metabolic encephalopathy: Resolved #LUE edema: diuresis. INR therapeutic #H/o subdural hematoma in 2010 (non-operative management) #H/o infrarenal AAA: s/p stent graft repair. 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 She is not neutropenic here. #HTN: Coreg and amlodipine. #Diet: low Na, fluid restriction Subjective: felt shaky with low blood glucose today. pain adequately controlled. Not eating great. Objective: Vital Signs Temp Pulse Resp BP Pulse Ox 36.4 C 82 16 154/73 H 93 06/02/18 11:41 06/02/18 12:00 06/02/18 11:41 06/02/18 11:41 06/02/18 11:41 Laboratory Results 06/02/18 04:25 06/02/18 04:25 06/01/18 06/02/18 06/03/18 05:59 05:59 05:59 Intake Total 500 1540 118 Output Total 1750 900 Balance -1250 640 118 PT 29.2 SEC (12.0-15.0) H 06/02/18 04:25 INR 2.95 (0.83-1.16) H 06/02/18 04:25 - Physical Exam Constitutional: chronically ill appearing Eyes: PERRL, anicteric sclera Ears, Nose, Mouth, Throat: moist mucous membranes, hearing normal, ears appear normal Cardiovascular: regular rate and rhythym, systolic murmur Respiratory: reduced air movement Gastrointestinal: normoactive bowel sounds, soft, non-tender abdomen Genitourinary: no bladder fullness, no bladder tenderness Skin: warm, normal color Musculoskeletal: generalized weakness Neurologic: AAOx3, sensation intact bilaterally Psychiatric: interacting appropriately, not anxious, not encephalopathic Lymph, Heme, Immunologic: no cervical LAD ICD10 Worksheet Patient Problems: Problems Problem Status Onset Atrial fibrillation Acute Peripheral edema Acute Skin tear of right upper arm without complication Acute Trimalleolar fracture of ankle, closed Acute UTI (urinary tract infection) Acute Cerebral infarction Active
[2018-06-02] MEDS: ACETAMINOPHEN 325 MG TAB PO PRN ×2 (14:53→21:37)
[2018-06-02] MEDS: ATORVASTATIN CALCIUM 40 MG TAB PO SCH (21:38)
[2018-06-03] MEDS: ACETAMINOPHEN 325 MG TAB PO PRN ×2 (02:56→16:29)
[2018-06-03 05:02] LABS: PLATELET COUNT 232 10^3/uL (150-400)
[2018-06-03 05:08] LABS: INR 2.61 (0.83-1.16); PROTIME(PATIENT) 26.6 SEC (12.0-15.0)
[2018-06-03] MEDS: INSULIN LISPRO 100 UNIT/ML SC SCH ×3 (08:47→17:33)
--- NOTE | 2018-06-03 09:02 | SOAPPROG ---
HERNANDO Progress Note Assessment/Plan: Assessment: Left ankle trimalleolar fracture - secondary to fall on 05-31-18; closed reduced in ER on 05-31-18 Plan: Continue to hold anticoagulation. Most recent INR 2.61. Dr. Rodriguez wants to begin heparin once INR < 2.5 and will perform surgery once INR < 2.0 Continue NWBing on left lower extremity Keep splint clean, dry and intact Continue pain management Continue PT/OT efforts Continue D/C planning - she is agreeable to SNF 06/03/18 09:06 Subjective: Patient states her left ankle is not painful, splint is comfortable. She was feeling a bit shaky and dizzy earlier this morning, believes this was due to low blood sugar. Her glucose was 44 this morning, after having juice she was given D5, 25 mg. Patient reports she is feeling better now. No other major complaints or concerns at this time. Objective: Vital Signs Temp Pulse Resp BP Pulse Ox 36.7 C 67 17 137/81 H 91 L 06/03/18 08:00 06/03/18 08:00 06/03/18 08:00 06/03/18 08:00 06/03/18 08:00 Laboratory Results 06/03/18 04:22 06/03/18 04:22 06/02/18 06/03/18 06/04/18 05:59 05:59 05:59 Intake Total 1540 678 Output Total 900 1250 Balance 640 -572 PT 26.6 SEC (12.0-15.0) H 06/03/18 04:22 INR 2.61 (0.83-1.16) H 06/03/18 04:22 Patient resting comfortably in bed, no acute distress. Nasal canula is in place. LLE: Short leg splint is clean, dry and intact. Visible skin is intact. No edema distally in toe. She can actively move all toes. Grossly NVI distally. ICD10 Worksheet Patient Problems: Problems Problem Status Onset Atrial fibrillation Acute Peripheral edema Acute Skin tear of right upper arm without complication Acute Trimalleolar fracture of ankle, closed Acute UTI (urinary tract infection) Acute Cerebral infarction Active
[2018-06-03] MEDS: DULoxetine 30 MG CAP PO SCH (09:10)
[2018-06-03] MEDS: CARVEDILOL 25 MG TAB PO SCH ×2 (09:10→17:25)
[2018-06-03] MEDS: FUROSEMIDE 20 MG TAB PO SCH ×2 (09:10→16:27)
[2018-06-03] MEDS: SODIUM BICARBONATE 650 MG TAB PO SCH ×2 (09:12→20:05)
[2018-06-03] MEDS ORDERED: INSULIN GLARGINE 100 UNITS/ML UNIT SC SCH (10:31)
--- NOTE | 2018-06-03 12:18 | ASMTCMCOM ---
CM Note CM Note Notes: Met with pt, PT recommending SNF although pt has not had surgery yet. MD waiting for INR to go down to 2.0. She is agreeable to SNF, would like referral sent to [place] because that's where her daughter lives. Referral sent to [facility] and they can accept. DC Plan: SNF/ [facility] Date Signed: 06/03/2018 12:17 PM Electronically Signed By:Denise Munoz RN
--- NOTE | 2018-06-03 16:02 | HOSPPROG ---
Hospitalist Progress Note Assessment/Plan: 67 year old female with hx of afib, CKD, RA, and multiple other medical problems admitted with a left trimalleolar fracture. #Left trimalleolar fracture: Dr Rodriguez consulted, planning on operative management (see below). Currently splinted. Pain management. INR 2.9 today. -likely SNF at [place], she is agreeable -start heparin gtt once INR below 2.5 #High thromboembolic risk: -given atrial fibrillation, mech AVR and embolic CVA, needs anticoagulation up to surgery and no reversal -heparin gtt once INR <2.5 then Lovenox/Coumadin bridge -d/w Dr. Rodriguez. Plan on surgery once INR <2 -heparin 2.6 this am. repeat this afternoon and if below 2.5 start heparin gtt. 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 creatinine climbing today. Follows with Dr. Silva. If creatinine continues to climb, will consult nephrology while here. #Pyuria: no sxs. Hold off abx #Osteoporosis: Meets criteria as she had fracture from standing height. Outpatient management. #DM2: I decreasd her lantus yesterday from 50 to 35 and she still had hypoglycemia. Lantus held today. She is not eating much at all. Will hold lantus altogethe and provide ssi. If develops hyperglycemia will restart low dose lantus. #Hyperkalemia: resolved after diuresis. No peaked T-waves (EKG personally reviewed) #Acute metabolic encephalopathy: Resolved #LUE edema: diuresis. INR therapeutic #H/o subdural hematoma in 2010 (non-operative management) #H/o infrarenal AAA: s/p stent graft repair. 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 She is not neutropenic here. #HTN: Coreg and amlodipine. #Diet: low Na, fluid restriction Subjective: no complaints. trying to eat better Objective: Vital Signs Temp Pulse Resp BP Pulse Ox 36.7 C 74 19 145/64 H 91 L 06/03/18 15:13 06/03/18 15:13 06/03/18 15:13 06/03/18 15:13 06/03/18 15:13 Laboratory Results 06/03/18 04:22 06/03/18 04:22 06/02/18 06/03/18 06/04/18 05:59 05:59 05:59 Intake Total 1540 678 330 Output Total 900 1250 Balance 640 -572 330 PT 26.6 SEC (12.0-15.0) H 06/03/18 04:22 INR 2.61 (0.83-1.16) H 06/03/18 04:22 - Physical Exam Constitutional: chronically ill appearing, unkempt Eyes: PERRL, anicteric sclera, EOMI Ears, Nose, Mouth, Throat: moist mucous membranes, hearing normal, ears appear normal, no oral mucosal ulcers Cardiovascular: regular rate and rhythym, no murmur, rub, or gallop Respiratory: no respiratory distress, no rales or rhonchi, clear to auscultation Gastrointestinal: normoactive bowel sounds, soft, non-tender abdomen, no palpable masses Genitourinary: no bladder fullness, no bladder tenderness, no renal bruits Skin: no rashes or abrasions, no fluctuance, no induration Musculoskeletal: full muscle strength, no muscle tenderness, normal joint ROM Neurologic: AAOx3, sensation intact bilaterally Psychiatric: interacting appropriately, not anxious, not encephalopathic, thought process linear Lymph, Heme, Immunologic: no cervical LAD, no supraclavicular LAD ICD10 Worksheet Patient Problems: Problems Problem Status Onset Atrial fibrillation Acute Peripheral edema Acute Skin tear of right upper arm without complication Acute Trimalleolar fracture of ankle, closed Acute UTI (urinary tract infection) Acute Cerebral infarction Active
[2018-06-03 16:58] LABS: INR 2.37 (0.83-1.16); PROTIME(PATIENT) 24.7 SEC (12.0-15.0)
[2018-06-03] MEDS: ATORVASTATIN CALCIUM 40 MG TAB PO SCH (20:05)
[2018-06-04] MEDS: HEPARIN 10,000 UNIT/10 ML MDV (1,000 UNIT/ML) IVP PRN (00:58)
[2018-06-04] MEDS: HEPARIN/DEXTROSE 500 ML IV SCH (00:59)
[2018-06-04] MEDS: oxyCODONE IR 5 MG TAB PO PRN (01:10)
[2018-06-04 07:28] LABS: PLATELET COUNT 243 10^3/uL (150-400)
[2018-06-04 07:41] LABS: INR 2.44 (0.83-1.16); PROTIME(PATIENT) 25.3 SEC (12.0-15.0)
[2018-06-04] MEDS ORDERED: SODIUM CL NASAL 45 ML BTL EACHNARE PRN (08:11)
[2018-06-04] MEDS: OXYMETAZOLINE 30 ML NASAL SPRAY EACHNARE SCH ×2 (09:00→21:43)
[2018-06-04] MEDS: FUROSEMIDE 20 MG TAB PO SCH ×2 (09:10→15:09)
[2018-06-04] MEDS: CARVEDILOL 25 MG TAB PO SCH ×2 (09:11→18:16)
[2018-06-04] MEDS: SODIUM BICARBONATE 650 MG TAB PO SCH ×2 (09:11→21:42)
[2018-06-04] MEDS: DULoxetine 30 MG CAP PO SCH (09:13)
[2018-06-04] MEDS: ACETAMINOPHEN 325 MG TAB PO PRN ×2 (09:39→16:45)
[2018-06-04] MEDS: INSULIN LISPRO 100 UNIT/ML SC SCH ×3 (11:25→18:27)
--- NOTE | 2018-06-04 14:10 | HOSPPROG ---
Hospitalist Progress Note Assessment/Plan: 67 year old female with hx of afib, CKD, RA, and multiple other medical problems admitted with a left trimalleolar fracture. #Left trimalleolar fracture: Dr Rodriguez consulted, planning on operative management (see below). Currently splinted. Pain management. INR 2.9 today. -likely SNF at [place], she is agreeable -start heparin gtt once INR below 2.5 #High thromboembolic risk: -given atrial fibrillation, mech AVR and embolic CVA, needs anticoagulation up to surgery and no reversal -INR now below 2.5 so started on heparin gtt -cont heparin until after surgery than bridge Epistaxis- has had intermittent epistaxis since yesterday. Will try placing lido /epi/afrin soaked cotton in nare with nasal clamp. 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 creatinine climbing today. Follows with Dr. Silva. If creatinine continues to climb, will consult nephrology while here. #Pyuria: no sxs. Hold off abx #Osteoporosis: Meets criteria as she had fracture from standing height. Outpatient management. #DM2: I decreasd her lantus yesterday from 50 to 35 and she still had hypoglycemia. Lantus held today. She is not eating much at all. Will hold lantus altogethe and provide ssi. If develops hyperglycemia will restart low dose lantus. #Hyperkalemia: resolved after diuresis. No peaked T-waves (EKG personally reviewed) #Acute metabolic encephalopathy: Resolved #LUE edema: diuresis. INR therapeutic #H/o subdural hematoma in 2010 (non-operative management) #H/o infrarenal AAA: s/p stent graft repair. 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 She is not neutropenic here. #HTN: Coreg and amlodipine. #Diet: low Na, fluid restriction Subjective: nose is bleeding persistently. No other complaints. Objective: Vital Signs Temp Pulse Resp BP Pulse Ox 36.7 C 77 14 139/52 H 94 04/27/19 11:06 06/04/18 11:06 06/04/18 11:06 06/04/18 11:06 06/04/18 11:06 Laboratory Results 06/04/18 07:20 06/04/18 07:20 06/03/18 06/04/18 06/05/18 05:59 05:59 05:59 Intake Total 678 905 Output Total 1250 700 Balance -572 205 PT 25.3 SEC (12.0-15.0) H 06/04/18 07:20 INR 2.44 (0.83-1.16) H 06/04/18 07:20 - Physical Exam Constitutional: chronically ill appearing, obese Eyes: PERRL, anicteric sclera, EOMI Ears, Nose, Mouth, Throat: other (dried blood in mouth, nares with blood from left nares.) Cardiovascular: regular rate and rhythym, no murmur, rub, or gallop, systolic murmur Respiratory: no respiratory distress, no rales or rhonchi, clear to auscultation Gastrointestinal: normoactive bowel sounds, soft, non-tender abdomen, no palpable masses Genitourinary: no bladder fullness, no bladder tenderness, no renal bruits Skin: no rashes or abrasions, no fluctuance, no induration Musculoskeletal: generalized weakness Neurologic: AAOx3, sensation intact bilaterally Psychiatric: interacting appropriately, not anxious, not encephalopathic, thought process linear Lymph, Heme, Immunologic: no cervical LAD, no supraclavicular LAD ICD10 Worksheet Patient Problems: Problems Problem Status Onset Atrial fibrillation Acute Peripheral edema Acute Skin tear of right upper arm without complication Acute Trimalleolar fracture of ankle, closed Acute UTI (urinary tract infection) Acute Cerebral infarction Active
--- NOTE | 2018-06-04 17:34 | SOAPPROG ---
SOAP Progress Note Assessment/Plan: Assessment: Continued bleeding from the left nare despite packing with merocel sponge. Plan: Remove merocel packing and place Rapid Rhino balloon packing. Procedure: Merocel sponge removed. Continuous blood ooze from L nare. Suctioned. 4.5cm Rapid Rhino placed in the left nare following dousing gauze covering with afrin. Inflated. Good hemostasis achieved. Recommend packing remain in place for 7 days. Keflex or amoxicillin while packing in place. Please call me for packing removal: 06/04/18 17:30 Subjective: Continued bleeding despite placement of Douglas packing to left nare. Objective: Vital Signs Temp Pulse Resp BP Pulse Ox 36.6 C 66 15 126/60 H 93 06/04/18 15:43 06/04/18 15:43 06/04/18 15:43 06/04/18 15:43 06/04/18 15:43 Laboratory Results 06/04/18 07:20 06/04/18 07:20 06/03/18 06/04/18 06/05/18 05:59 05:59 05:59 Intake Total 678 905 Output Total 1250 700 Balance -572 205 PT 25.3 SEC (12.0-15.0) H 06/04/18 07:20 INR 2.44 (0.83-1.16) H 06/04/18 07:20 Physical Exam - Physical Exam General Appearance: alert, no apparent distress, obese EENT: PERRL/EOMI (Left nasal packing in place. Mild Bloody ooze anteriorly. ), No pharynx normal (No bright red blood in the op/oc. Old/dried blood at mucosal surfaces.) Neck: normal inspection Respiratory: No stridor ICD10 Worksheet Patient Problems: Problems Problem Status Onset Atrial fibrillation Acute Peripheral edema Acute Skin tear of right upper arm without complication Acute Trimalleolar fracture of ankle, closed Acute UTI (urinary tract infection) Acute Cerebral infarction Active
--- NOTE | 2018-06-04 20:12 | GCON ---
[f rep st] CONSULTATION ENT CONSULTATION CHIEF COMPLAINT: Epistaxis, left. HISTORY OF PRESENT ILLNESS: This is a 67-year-old female with atrial fibrillation, CKD, RA, with mul tiple medical problems who is currently anticoagulated. She has had intermittent epistaxis that she notes is exacerbated by her picking crusts in her nose. This has been more constant since yesterday and has exacerbated today. She has not responded to treatment with Afrin-soaked cotton or nasal clam ps. As such, ENT consultation was called. REVIEW OF SYSTEMS: Negative for other HEENT complaints. FAMILY HISTORY: Noncontributory. MEDICATIONS: Reviewed. PAST MEDICAL HISTORY: Pertinent for anticoagulation and epistaxis. PHYSICAL EXAM: VITAL SIGNS: Blood pressure 126/60, heart rate 66, respiratory rate 15, O2 saturatio n 93% on 2.5 L of humidified face mask, temperature 36.6. GENERAL: Alert, interactive. GENERAL HEAD AND FACE: Normocephalic. Generally symmetric head and f acial features. EARS: Bilateral pinnae and canals are nontender and nonerythematous. No obvious ot orrhea. Outer canals appear clear. EYES: EOMI. NOSE: Partly bloody soaked gauze packing emanatin g from the left nasal cavity. Right naris is unremarkable. ORAL CAVITY/OROPHARYNX: No mucosal lesi ons. Age-appropriate dentition. There is a dried bloody coating on multiple mucosal surfaces and th e tongue. Posterior oropharynx is free of bright red blood. NECK: Supple without palpable mass or adenopathy. NEUROLOGIC: Cranial nerves 2 through 12 grossly intact. ASSESSMENT: A 67-year-old female with left-sided epistaxis. Given her history, she would be appropr iate for packing. PROCEDURE: Gauze was removed from the left naris. Anterior rhinoscopy showed some mild bloody ooze emanating from the anterior septum. A Duoglas pack was placed and appeared to allow for hemostasis. PLAN: The patient will be appropriate for blood pressure control. Would recommend Afrin to the nose 3 times daily to the site of the packing. Nasal clamp as needed. /[id number]
[2018-06-04] MEDS: ATORVASTATIN CALCIUM 40 MG TAB PO SCH (21:42)
[2018-06-04] MEDS: SODIUM CL NASAL 45 ML BTL EACHNARE SCH (21:44)
[2018-06-05] MEDS: HEPARIN/DEXTROSE 500 ML IV SCH ×2 (03:10→14:40)
[2018-06-05] MEDS: SODIUM CL NASAL 45 ML BTL EACHNARE SCH ×4 (06:01→21:19)
[2018-06-05] MEDS: DULoxetine 30 MG CAP PO SCH (08:26)
[2018-06-05] MEDS: SODIUM BICARBONATE 650 MG TAB PO SCH ×2 (08:27→21:16)
[2018-06-05] MEDS: CARVEDILOL 25 MG TAB PO SCH ×2 (08:28→18:11)
[2018-06-05] MEDS: FUROSEMIDE 20 MG TAB PO SCH ×2 (08:29→14:38)
[2018-06-05] MEDS: OXYMETAZOLINE 30 ML NASAL SPRAY EACHNARE SCH ×2 (08:34→21:18)
[2018-06-05] MEDS: INSULIN LISPRO 100 UNIT/ML SC SCH ×3 (09:35→18:11)
[2018-06-05] MEDS: ACETAMINOPHEN 325 MG TAB PO PRN ×2 (10:08→21:50)
--- NOTE | 2018-06-05 10:46 | SOAPPROG ---
SOAP Progress Note Assessment/Plan: Assessment: Plan: 06/05/18 10:44 S/P trimalleolar ankle fx closed reduced in ED INR 2.4 on heparin Possible ORIF Wednesday afternoon, ideally would like INR closer to 2 NPO after breakfast recheck INR in am Subjective: epistaxis yesterday ENT consulted Ankle comfortable Objective: Splint c/d/i minimal swelling moving toes brisk cap refill Vital Signs Temp Pulse Resp BP Pulse Ox 36.6 C 71 17 135/67 H 93 06/05/18 07:33 06/05/18 08:28 06/05/18 07:33 06/05/18 08:28 06/05/18 07:33 Laboratory Results 06/05/18 03:00 06/04/18 07:20 06/04/18 06/05/18 06/06/18 05:59 05:59 05:59 Intake Total 905 1083 Output Total 700 700 Balance 205 383 PT 25.3 SEC (12.0-15.0) H 06/04/18 07:20 INR 2.44 (0.83-1.16) H 06/04/18 07:20 ICD10 Worksheet Patient Problems: Problems Problem Status Onset Atrial fibrillation Acute Peripheral edema Acute Skin tear of right upper arm without complication Acute Trimalleolar fracture of ankle, closed Acute UTI (urinary tract infection) Acute Cerebral infarction Active
--- NOTE | 2018-06-05 12:56 | HOSPPROG ---
Hospitalist Progress Note Assessment/Plan: 67 year old female with hx of afib, CKD, RA, and multiple other medical problems admitted with a left trimalleolar fracture. #Left trimalleolar fracture: Dr Rodriguez consulted, planning on operative management (see below). Currently splinted. Pain management. INR 2.9 today. -likely SNF at [place], she is agreeable -On heparin gtt -possible OR in am, ortho would like INR approx 2. #High thromboembolic risk: -given atrial fibrillation, mech AVR and embolic CVA, needs anticoagulation up to surgery and no reversal -INR now below 2.5 so started on heparin gtt -cont heparin until after surgery than bridge Epistaxis- Discussed with ent who placed rhino rocket. Needs to remain in place for 7 days. On prophy abx with augmentin Hypoxia- says she does not normally require oxygen but has been on 2-3 liters since admission. Does not sound wet on exam. 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 creatinine climbing today. Follows with Dr. Silva. creatinine up from baseline, Repeat pending, if elevated may hold lasix. #Pyuria: no sxs. Hold off abx #Osteoporosis: Meets criteria as she had fracture from standing height. Outpatient management. #DM2: I decreasd her lantus yesterday from 50 to 35 and she still had hypoglycemia. Lantus held today. She is not eating much at all. Will hold lantus altogethe and provide ssi. If develops hyperglycemia will restart low dose lantus. #Hyperkalemia: resolved after diuresis. No peaked T-waves (EKG personally reviewed) #Acute metabolic encephalopathy: Resolved #LUE edema: diuresis. INR therapeutic #H/o subdural hematoma in 2010 (non-operative management) #H/o infrarenal AAA: s/p stent graft repair. 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 She is not neutropenic here. #HTN: Coreg and amlodipine. #Diet: low Na, fluid restriction Subjective: wants the balloon out of her nose. tired. Objective: Vital Signs Temp Pulse Resp BP Pulse Ox 36.6 C 64 18 123/62 H 93 06/05/18 11:24 06/05/18 11:24 06/05/18 11:24 06/05/18 11:24 06/05/18 11:24 Laboratory Results 06/05/18 03:00 06/04/18 07:20 06/04/18 06/05/18 06/06/18 05:59 05:59 05:59 Intake Total 905 1083 Output Total 700 700 Balance 205 383 PT 25.3 SEC (12.0-15.0) H 06/04/18 07:20 INR 2.44 (0.83-1.16) H 06/04/18 07:20 - Physical Exam Constitutional: no apparent distress, appears nourished, not in pain, obese Eyes: PERRL, anicteric sclera, EOMI Ears, Nose, Mouth, Throat: moist mucous membranes, hearing normal, ears appear normal, no oral mucosal ulcers Cardiovascular: regular rate and rhythym, no murmur, rub, or gallop Respiratory: reduced air movement Gastrointestinal: normoactive bowel sounds, soft, non-tender abdomen, no palpable masses Genitourinary: no bladder fullness, no bladder tenderness, no renal bruits Skin: no rashes or abrasions, no fluctuance, no induration Musculoskeletal: full muscle strength, no muscle tenderness, normal joint ROM, other (left leg in splint. ) Neurologic: AAOx3, sensation intact bilaterally Psychiatric: interacting appropriately, not anxious, not encephalopathic, thought process linear Lymph, Heme, Immunologic: no cervical LAD, no supraclavicular LAD ICD10 Worksheet Patient Problems: Problems Problem Status Onset Atrial fibrillation Acute Peripheral edema Acute Skin tear of right upper arm without complication Acute Trimalleolar fracture of ankle, closed Acute UTI (urinary tract infection) Acute Cerebral infarction Active
[2018-06-05] MEDS: ATORVASTATIN CALCIUM 40 MG TAB PO SCH (21:16)
[2018-06-06] MEDS: HEPARIN/DEXTROSE 500 ML IV SCH ×2 (01:11→13:38)
[2018-06-06 05:33] LABS: PLATELET COUNT 258 10^3/uL (150-400)
[2018-06-06] MEDS: SODIUM CL NASAL 45 ML BTL EACHNARE SCH ×4 (05:35→21:07)
[2018-06-06 05:42] LABS: INR 1.77 (0.83-1.16); PROTIME(PATIENT) 19.8 SEC (12.0-15.0)
[2018-06-06] MEDS: INSULIN LISPRO 100 UNIT/ML SC SCH ×3 (07:50→16:46)
[2018-06-06] MEDS: CARVEDILOL 25 MG TAB PO SCH ×2 (08:56→18:32)
[2018-06-06] MEDS: FUROSEMIDE 20 MG TAB PO SCH ×2 (08:56→16:09)
[2018-06-06] MEDS: SODIUM BICARBONATE 650 MG TAB PO SCH ×2 (08:57→21:06)
[2018-06-06] MEDS: DULoxetine 30 MG CAP PO SCH (08:57)
[2018-06-06] MEDS ORDERED: ROPIVACAINE HCL 150 MG/30 ML INJ ONE ×2 (10:02→12:05)
[2018-06-06] MEDS ORDERED: BUPIVACAINE/DEXTROSE 7.5MG/ML 2 ML SPINAL AMP SP ONE (10:02)
--- NOTE | 2018-06-06 10:02 | SOAPPROG ---
SOAP Progress Note Assessment/Plan: Assessment: Left ankle trimalleolar fracture - secondary to fall on 05-31-18; closed reduced in ER on 05-31-18 Plan: On heparin gtt. Most recent INR 1.77. Scheduled for left ORIF this afternoon with Dr. Rodriguez. Continue NWBing on left lower extremity Keep splint clean, dry and intact Continue pain management Continue PT/OT efforts Continue D/C planning - she is agreeable to SNF Subjective: Patient states she has no pain in the left ankle. She is ready to have surgery. She denies SOB, CP, fever, chills, nausea. Objective: Vital Signs Temp Pulse Resp BP Pulse Ox 36.7 C 73 18 133/65 H 97 06/06/18 07:41 06/06/18 08:56 06/06/18 07:41 06/06/18 08:57 06/06/18 07:41 Laboratory Results 06/06/18 05:10 06/06/18 05:10 06/05/18 06/06/18 06/07/18 05:59 05:59 05:59 Intake Total 1083 1566.8 Output Total 700 1000 Balance 383 566.8 PT 19.8 SEC (12.0-15.0) H 06/06/18 05:10 INR 1.77 (0.83-1.16) H 06/06/18 05:10 Patient appears drowsy, no acute distress. LLE: Short leg splint is clean, dry and intact. Visible skin intact, no edema distally into toes. She can actively move toes. Grossly NVI distally. ICD10 Worksheet Patient Problems: Problems Problem Status Onset Atrial fibrillation Acute Peripheral edema Acute Skin tear of right upper arm without complication Acute Trimalleolar fracture of ankle, closed Acute UTI (urinary tract infection) Acute Cerebral infarction Active
--- NOTE | 2018-06-06 10:49 | ASMTCMCOM ---
CM Note CM Note Notes: Patient is going for left OLIF this afternoon with Dr. Rodriguez. Patient is currently on track for going to [facility] for SNF rehab at discharge. Patient will need another evaluation by PT/OT after surgery. CM will follow. Date Signed: 06/06/2018 10:48 AM Electronically Signed By:Laine Licea LCSW
[2018-06-06] MEDS: OXYMETAZOLINE 30 ML NASAL SPRAY EACHNARE SCH ×2 (12:00→21:06)
[2018-06-06] MEDS ORDERED: ONDANSETRON 4 MG/2 ML VIAL ONE (12:05)
[2018-06-06] MEDS ORDERED: ROCURONIUM 50 MG/5 ML VIAL ONE (12:05)
[2018-06-06] MEDS ORDERED: LIDOCAINE 2% 5 ML SDV ONE ×3 (12:05→12:06)
[2018-06-06] MEDS ORDERED: fentaNYL 100 MCG/2 ML INJ ONE (12:06)
--- NOTE | 2018-06-06 12:20 | PDANEPAE ---
ANE Past Medical History - Cardiovascular History Hx CHF / Valvular Disease: Yes Cardiovascular History Comment: S/P AVR. Mechanical valve requiring anticoagulation. Has moderate tricuspid regurgitation and moderate pulm HTN on echo. - Pulmonary History Hx Oxygen in Use at Home: No Hx Sleep Apnea: No Sleep Apnea Screening Result - Last Documented: Positive - Endocrine History Hx Diabetes: Yes Hypothyroid: Yes - Renal History Hx Renal Disorders: Yes - Liver History Hx Hepatic Disorders: No - Neurological & Psychiatric Hx Hx Neurological and Psychiatric Disorders: Yes Neurological / Psychiatric History Comment: Found confused after a fall at home. - Chronic Pain History Chronic Pain: Yes ANE Review of Systems Review of Systems: ANE Patient History - Allergies Allergies/Adverse Reactions: No Allergies [NKDA] Allergy (Verified 11/05/11 23:47) - Home Medications Home Medications: Atorvastatin Calcium [Lipitor 40 mg (*)] 40 mg PO HS 05/31/18 [Last Taken Unknown] Calcitriol [Calcitriol (*)] 0.25 mcg PO TU 05/31/18 [Last Taken 05/29/18] Carvedilol [Coreg (*)] 25 mg PO BIDMEAL 05/31/18 [Last Taken Unknown] DULoxetine [Cymbalta 30 MG (*)] 30 mg PO DAILY 05/31/18 [Last Taken Unknown] Furosemide [Lasix 20 MG (*)] 60 mg PO BID 05/31/18 [Last Taken Unknown] Insulin Glargine [Lantus] 50 unit SC DAILY@12 05/31/18 [Last Taken 05/28/18] Sodium Bicarbonate [Na Bicarb 650 MG (RX)] 650 mg PO BID 05/31/18 [Last Taken Unknown] Warfarin Sodium [Coumadin 5MG (*)] 2.5 mg PO DAILY16 05/31/18 [Last Taken ] amLODIPine BESYLATE [Norvasc 10 mg (*)] 10 mg PO DAILY 05/31/18 [Last Taken Unknown] - NPO status NPO Since - Liquids (Date): 05/31/18 NPO Since - Liquids (Time): 23:59 NPO Since - Solids (Date): 05/31/18 NPO Since - Solids (Time): 23:59 - Smoking Hx Smoking Status: Former smoker - Alcohol Use Alcohol Use: None ANE Labs/Vital Signs - Labs Result Diagrams: 06/06/18 05:10 06/06/18 05:10 - Vital Signs Blood Pressure: 110/60 Heart Rate: 75 Respiratory Rate: 17 O2 Sat (%): 95 Height: 170.18 cm Weight: 129.8 kg
--- NOTE | 2018-06-06 12:28 | HOSPPROG ---
Hospitalist Progress Note Assessment/Plan: 67 year old female with hx of afib, CKD, RA, and multiple other medical problems admitted with a left trimalleolar fracture. #Left trimalleolar fracture: Dr Rodriguez consulted, planning on operative management (see below). Currently splinted. Pain management. INR 2.9 today. -likely SNF at [place], she is agreeable -On heparin gtt -to OR today #High thromboembolic risk: -given atrial fibrillation, mech AVR and embolic CVA, needs anticoagulation up to surgery and no reversal -INR now below 2.5 so started on heparin gtt -cont heparin until after surgery than bridge Epistaxis- Discussed with ent who placed rhino rocket. Needs to remain in place for 7 days. On prophy abx with augmentin Hypoxia- says she does not normally require oxygen but has been on 2-3 liters since admission. Does not sound wet on exam. 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 creatinine stable. #Pyuria: no sxs. Hold off abx #Osteoporosis: Meets criteria as she had fracture from standing height. Outpatient management. #DM2: basal lantus held and on ssi. #Hyperkalemia: resolved after diuresis. No peaked T-waves (EKG personally reviewed) #Acute metabolic encephalopathy: Resolved #LUE edema: diuresis. INR therapeutic #H/o subdural hematoma in 2010 (non-operative management) #H/o infrarenal AAA: s/p stent graft repair. 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 She is not neutropenic here. #HTN: Coreg and amlodipine. #Diet: low Na, fluid restriction Subjective: appears comfortable. Rhino rocket in place. eager to get surgery done. Objective: Vital Signs Temp Pulse Resp BP Pulse Ox 36.8 C 75 17 110/60 95 06/06/18 11:26 06/06/18 12:20 06/06/18 12:20 06/06/18 12:20 06/06/18 12:20 Laboratory Results 06/06/18 05:10 06/06/18 05:10 06/05/18 06/06/18 06/07/18 05:59 05:59 05:59 Intake Total 1083 1566.8 Output Total 700 1000 Balance 383 566.8 PT 19.8 SEC (12.0-15.0) H 06/06/18 05:10 INR 1.77 (0.83-1.16) H 06/06/18 05:10 - Physical Exam Constitutional: no apparent distress, appears nourished, not in pain Eyes: PERRL, anicteric sclera, EOMI Ears, Nose, Mouth, Throat: moist mucous membranes, hearing normal, ears appear normal, no oral mucosal ulcers Cardiovascular: regular rate and rhythym, no murmur, rub, or gallop Respiratory: no respiratory distress, no rales or rhonchi, clear to auscultation Gastrointestinal: normoactive bowel sounds, soft, non-tender abdomen, no palpable masses Genitourinary: no bladder fullness, no bladder tenderness, no renal bruits Skin: no rashes or abrasions, no fluctuance, no induration Musculoskeletal: full muscle strength, no muscle tenderness, normal joint ROM Neurologic: AAOx3, sensation intact bilaterally Psychiatric: interacting appropriately, not anxious, not encephalopathic, thought process linear Lymph, Heme, Immunologic: no cervical LAD, no supraclavicular LAD ICD10 Worksheet Patient Problems: Problems Problem Status Onset Atrial fibrillation Acute Peripheral edema Acute Skin tear of right upper arm without complication Acute Trimalleolar fracture of ankle, closed Acute UTI (urinary tract infection) Acute Cerebral infarction Active
[2018-06-06] MEDS ORDERED: POLYMYXIN B SULFATE 500,000 UNIT/10 ML SYR IRR ONE (13:45)
[2018-06-06] MEDS ORDERED: BACITRACIN 50,000 UNITS/10 ML SYR IRR ONE (13:45)
[2018-06-06] MEDS ORDERED: BUPIVACAINE/EPI 0.5% 30 ML SDV ONE (13:45)
[2018-06-06] MEDS ORDERED: LACTULOSE 20 GM/30 ML UDCUP PO PRN (15:53)
[2018-06-06] MEDS ORDERED: MAGNESIUM HYDROXIDE 30 ML UDCUP PO PRN (15:53)
[2018-06-06] MEDS: ACETAMINOPHEN 325 MG TAB PO PRN ×2 (16:25→21:04)
[2018-06-06] MEDS: ATORVASTATIN CALCIUM 40 MG TAB PO SCH (21:05)
[2018-06-06] MEDS: SENNOSIDES/DOCUSATE SODIUM TAB PO SCH (21:06)
[2018-06-06] MEDS: POLYETHYLENE GLYCOL 3350 17 GM PKT PO PRN (21:06)
[2018-06-07] MEDS: HEPARIN/DEXTROSE 500 ML IV SCH ×3 (00:08→22:34)
[2018-06-07] MEDS: BISACODYL 10 MG SUPP PR PRN (04:57)
[2018-06-07] MEDS: SODIUM CL NASAL 45 ML BTL EACHNARE SCH ×4 (05:00→21:51)
[2018-06-07 05:27] LABS: PLATELET COUNT 271 10^3/uL (150-400)
[2018-06-07] MEDS: DULoxetine 30 MG CAP PO SCH (09:41)
[2018-06-07] MEDS: SODIUM BICARBONATE 650 MG TAB PO SCH ×2 (09:41→21:46)
[2018-06-07] MEDS: CARVEDILOL 25 MG TAB PO SCH ×2 (09:41→18:36)
[2018-06-07] MEDS: FUROSEMIDE 40 MG/4 ML VIAL IVP SCH ×2 (09:42→15:56)
[2018-06-07] MEDS: OXYMETAZOLINE 30 ML NASAL SPRAY EACHNARE SCH (09:42)
[2018-06-07] MEDS: INSULIN LISPRO 100 UNIT/ML SC SCH ×3 (09:42→18:35)
[2018-06-07] MEDS: SENNOSIDES/DOCUSATE SODIUM TAB PO SCH ×2 (09:43→21:46)
--- NOTE | 2018-06-07 11:45 | SOAPPROG ---
SOAP Progress Note Assessment/Plan: Assessment: Left ankle trimalleolar fracture - secondary to fall on 05-31-18; closed reduced in ER on 05-31-18 Plan: On heparin gtt. Most recent INR 1.77. Possible left ORIF with Dr. Rodriguez tomorrow. Will stop heparin approximately 2 hours prior to surgery. Continue NWBing on left lower extremity Keep splint clean, dry and intact Continue pain management Continue PT/OT efforts Continue D/C planning - she is agreeable to SNF 06/07/18 12:17 Subjective: Patient reports that she is feeling better today. She feels less confused. States there is no pain in her left ankle. She denies SOB, CP, fever, chills, nausea. Objective: Vital Signs Temp Pulse Resp BP Pulse Ox 36.4 C 71 23 H 133/55 H 93 06/07/18 11:30 06/07/18 11:30 06/07/18 11:30 06/07/18 11:30 06/07/18 11:30 Laboratory Results 06/07/18 05:10 06/07/18 05:10 06/06/18 06/07/18 06/08/18 05:59 05:59 05:59 Intake Total 1566.8 616.8 Output Total 1000 1750 Balance 566.8 -1133.2 PT 19.8 SEC (12.0-15.0) H 06/06/18 05:10 INR 1.77 (0.83-1.16) H 06/06/18 05:10 Patient resting comfortably in bed, no acute distress. She is alert and oriented x 3. LLE: Short leg splint is clean, dry and intact. Visible skin intact. No edema distally into her toe. She can actively move all toes. Grossly NVI distally. ICD10 Worksheet Patient Problems: Problems Problem Status Onset Atrial fibrillation Acute Peripheral edema Acute Skin tear of right upper arm without complication Acute Trimalleolar fracture of ankle, closed Acute UTI (urinary tract infection) Acute Cerebral infarction Active
[2018-06-07] MEDS: CALCITRIOL 0.25 MCG CAP PO SCH (12:00)
[2018-06-07] MEDS: ACETAMINOPHEN 325 MG TAB PO PRN ×2 (13:02→21:45)
--- NOTE | 2018-06-07 15:19 | HOSPPROG ---
Hospitalist Progress Note Assessment/Plan: 67 year old female with hx of afib, CKD, RA, and multiple other medical problems admitted with a left trimalleolar fracture. #Left trimalleolar fracture: Dr Rodriguez consulted, planning on operative management (see below). Currently splinted. Pain management. INR 2.9 today. -likely SNF at [place], she is agreeable -On heparin gtt -to OR today #High thromboembolic risk: -given atrial fibrillation, mech AVR and embolic CVA, needs anticoagulation up to surgery and no reversal -INR now below 2.5 so started on heparin gtt -cont heparin until after surgery than bridge -repeat INR in am Epistaxis- Discussed with ent who placed rhino rocket. Needs to remain in place for 7 days. On prophy abx with augmentin Hypoxia- says she does not normally require oxygen but has been on 2-3 liters since admission. Does not sound wet on exam. may be due to OHS -cxr with cardiomegaly, and mild edema. -will increase lasix today #Volume overload -increase lasix today and give IV. 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 creatinine stable. #Pyuria: no sxs. Hold off abx #Osteoporosis: Meets criteria as she had fracture from standing height. Outpatient management. #DM2: basal lantus held and on ssi. #Hyperkalemia: resolved after diuresis. No peaked T-waves (EKG personally reviewed) #Acute metabolic encephalopathy: Resolved #LUE edema: diuresis. INR therapeutic #H/o subdural hematoma in 2010 (non-operative management) #H/o infrarenal AAA: s/p stent graft repair. 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 She is not neutropenic here. #HTN: Coreg and amlodipine. #Diet: low Na, fluid restriction Subjective: more alert today. ready to get surgery over with. Objective: Vital Signs Temp Pulse Resp BP Pulse Ox 36.4 C 71 23 H 133/55 H 93 06/07/18 11:30 06/07/18 11:30 06/07/18 11:30 06/07/18 11:30 06/07/18 11:30 Laboratory Results 06/07/18 05:10 06/07/18 05:10 06/06/18 06/07/18 06/08/18 05:59 05:59 05:59 Intake Total 1566.8 616.8 Output Total 1000 1750 Balance 566.8 -1133.2 PT 19.8 SEC (12.0-15.0) H 06/06/18 05:10 INR 1.77 (0.83-1.16) H 06/06/18 05:10 - Physical Exam Constitutional: no apparent distress, appears nourished, not in pain, chronically ill appearing Eyes: PERRL, anicteric sclera, EOMI Ears, Nose, Mouth, Throat: moist mucous membranes, hearing normal, ears appear normal, no oral mucosal ulcers, other (rhino rocket in left nare. ) Cardiovascular: systolic murmur Respiratory: reduced air movement Gastrointestinal: normoactive bowel sounds, soft, non-tender abdomen, no palpable masses Genitourinary: no bladder fullness, no bladder tenderness, no renal bruits Skin: no rashes or abrasions, no fluctuance, no induration, other (echymoses scattered on arms. ) Musculoskeletal: generalized weakness Neurologic: AAOx3, sensation intact bilaterally Psychiatric: interacting appropriately, not anxious, not encephalopathic, thought process linear Lymph, Heme, Immunologic: no cervical LAD, no supraclavicular LAD ICD10 Worksheet Patient Problems: Problems Problem Status Onset Atrial fibrillation Acute Peripheral edema Acute Skin tear of right upper arm without complication Acute Trimalleolar fracture of ankle, closed Acute UTI (urinary tract infection) Acute Cerebral infarction Active
[2018-06-07] MEDS: ATORVASTATIN CALCIUM 40 MG TAB PO SCH (21:46)
[2018-06-08] MEDS: SODIUM CL NASAL 45 ML BTL EACHNARE SCH ×4 (05:00→21:00)
[2018-06-08 05:27] LABS: INR 1.76 (0.83-1.16); PROTIME(PATIENT) 19.7 SEC (12.0-15.0)
[2018-06-08] MEDS: SENNOSIDES/DOCUSATE SODIUM TAB PO SCH ×2 (07:01→23:43)
[2018-06-08] MEDS: DULoxetine 30 MG CAP PO SCH (07:01)
[2018-06-08] MEDS: SODIUM BICARBONATE 650 MG TAB PO SCH ×2 (07:02→20:58)
[2018-06-08] MEDS ORDERED: BACITRACIN 50,000 UNITS/10 ML SYR IRR ONE (07:45)
[2018-06-08] MEDS ORDERED: POLYMYXIN B SULFATE 500,000 UNIT/10 ML SYR IRR ONE (07:45)
[2018-06-08] MEDS ORDERED: BUPIVACAINE/EPI 0.5% 30 ML SDV ONE (07:45)
[2018-06-08] MEDS: CARVEDILOL 25 MG TAB PO SCH ×2 (07:55→18:18)
[2018-06-08] MEDS: INSULIN LISPRO 100 UNIT/ML SC SCH ×3 (08:04→18:19)
[2018-06-08] MEDS ORDERED: LR 1,000 ML IV ONE (08:06)
--- NOTE | 2018-06-08 08:26 | PDANEPAE ---
ANE Past Medical History - Cardiovascular History Hx Hypertension: Yes Hx Arrhythmias: Yes Hx Coronary Artery / Peripheral Vascular Disease: Yes Hx CHF / Valvular Disease: Yes - Pulmonary History Hx COPD: Yes Hx Oxygen in Use at Home: No Hx Sleep Apnea: No Sleep Apnea Screening Result - Last Documented: Positive - Endocrine History Hx Diabetes: Yes - Chronic Pain History Chronic Pain: Yes ANE Review of Systems Review of Systems: ANE Patient History - Allergies Allergies/Adverse Reactions: No Allergies [NKDA] Allergy (Verified 11/05/11 23:47) - Home Medications Home Medications: Atorvastatin Calcium [Lipitor 40 mg (*)] 40 mg PO HS 05/31/18 [Last Taken Unknown] Calcitriol [Calcitriol (*)] 0.25 mcg PO TU 05/31/18 [Last Taken 05/29/18] Carvedilol [Coreg (*)] 25 mg PO BIDMEAL 05/31/18 [Last Taken Unknown] DULoxetine [Cymbalta 30 MG (*)] 30 mg PO DAILY 05/31/18 [Last Taken Unknown] Furosemide [Lasix 20 MG (*)] 60 mg PO BID 05/31/18 [Last Taken Unknown] Insulin Glargine [Lantus] 50 unit SC DAILY@12 05/31/18 [Last Taken 05/28/18] Sodium Bicarbonate [Na Bicarb 650 MG (RX)] 650 mg PO BID 05/31/18 [Last Taken Unknown] Warfarin Sodium [Coumadin 5MG (*)] 2.5 mg PO DAILY16 05/31/18 [Last Taken ] amLODIPine BESYLATE [Norvasc 10 mg (*)] 10 mg PO DAILY 05/31/18 [Last Taken Unknown] - NPO status NPO Since - Liquids (Date): 06/07/18 NPO Since - Liquids (Time): 23:59 NPO Since - Solids (Date): 06/07/18 NPO Since - Solids (Time): 23:59 - Smoking Hx Smoking Status: Former smoker - Alcohol Use Alcohol Use: None ANE Labs/Vital Signs - Labs Result Diagrams: 06/07/18 05:10 06/07/18 05:10 - Vital Signs Blood Pressure: 124/60 Heart Rate: 68 Respiratory Rate: 16 O2 Sat (%): 93 Height: 170.18 cm Weight: 131.54 kg ANE Physical Exam - Airway Mallampati Score: Class 3 - Cardiovascular Cardiovascular: irregularly irregular - ASA Status ASA Status: IV
[2018-06-08] MEDS ORDERED: MIDAZOLAM 2 MG/2 ML VIAL ONE (08:48)
[2018-06-08] MEDS ORDERED: fentaNYL 100 MCG/2 ML INJ ONE ×2 (08:48→10:43)
[2018-06-08] MEDS ORDERED: ONDANSETRON 4 MG/2 ML VIAL ONE (08:49)
[2018-06-08] MEDS ORDERED: PROPOFOL 200 MG/20 ML VIAL ONE (08:49)
[2018-06-08] MEDS ORDERED: METOCLOPRAMIDE 10 MG/2 ML VIAL ONE (08:49)
[2018-06-08] MEDS ORDERED: LIDOCAINE 2% JELLY 6 ML TOPICAL SYR ONE (08:49)
[2018-06-08] MEDS ORDERED: CEFAZOLIN 2 GM/DEXTROSE/100 ML BAG IV ONE (09:00)
[2018-06-08] MEDS ORDERED: ceFAZolin 2 GM/DEXTROSE 100 ML IV ONE (09:01)
--- NOTE | 2018-06-08 09:02 | PDHPUP ---
History & Physical Update H&P update statement: This history and physical update is based on an assessment of the patient which was completed after admission or registration (within 24 hours), but prior to the surgery/procedure. H&P update: H&P reviewed & patient examined, no change in patient's condition since H&P completed
--- NOTE | 2018-06-08 10:37 | POSTOPPROG ---
Post Op Note Date of Operation: 06/08/18 Surgeon: Chandrakant Rodriguez Anesthesiologist: Alyse Anesthesia: GET(General Endotracheal) Pre-op Diagnosis: displaced trimalleolar ankle fx Left Post-op Diagnosis: same Indication: displaced fracture Procedure: ORIF bimalleolar ankle fx lt Findings: displaced fx Inf/Abcess present in the surg proc area at time of surgery?: No EBL: 50-100 Total fluids administered: 150 ml Complications: none Bowel Protocol: Yes Clean Closure Performed: Yes
[2018-06-08] MEDS ORDERED: ALBUTEROL 3 ML DEYVIAL IH PRN (10:39)
[2018-06-08] MEDS ORDERED: fentaNYL 100 MCG/2 ML INJ IVP PRN (10:39)
[2018-06-08] MEDS ORDERED: NALOXONE HCL 0.4 MG/ML INJ IVP PRN (10:39)
--- NOTE | 2018-06-08 10:40 | POSTANESTH ---
Post Anesthetic Evaluation Cardiovascular Status: Similar to Pre-Op Cond Respiratory Status: Similar to Pre-op Cond. Level of Consciousness/Mental Status: Can Participate in Eval Pain Control: Adequate, Prn Tx Ordered Nausea/Vomiting Control: Adequate, Prn Tx Ordered Complications Possibly Related to Anesthesia: None Noted
[2018-06-08] MEDS ORDERED: ALBUTEROL 3 ML DEYVIAL ONE (10:45)
--- NOTE | 2018-06-08 11:06 | GOP ---
[f rep st] OPERATIVE REPORT DATE OF OPERATION: 06/08/2018 SURGEON: Chandrakant Rodriguez MD ANESTHESIA: General. ANESTHESIOLOGIST: Dr. Cullen PREOPERATIVE DIAGNOSIS: Displaced trimalleolar fracture. POSTOPERATIVE DIAGNOSIS: Displaced trimalleolar fracture. PROCEDURE PERFORMED: Open reduction, internal fixation, bimalleolar fracture, left ankle. FINDINGS: ESTIMATED BLOOD LOSS: 100 mL. INDICATIONS: The patient is a 67-year-old female who fell at home approximately 1 week ago. Was on Coumadin. We waited until her INR got below 2.0 and brought her to the operating room for definitive fixation of her displaced fracture. DESCRIPTION OF PROCEDURE: After appropriate informed consent was obtained, patient taken to the oper ating room, placed supine on the operating table. Time-out was performed. Patient was identified. Correct site was identified, matched with radiographs available in the room. Following general endot wendy tube anesthesia with an LMA, left lower extremity was prepped and draped in usual sterile fas hion, exsanguinated the limb, inflated tourniquet to 250 mmHg, made a standard posterolateral incisio n over the distal fibula centered over the fracture site. Soft tissues were carefully elevated. Hol ding the fracture reduced with a tenaculum clamp, I was able to put 1 lag screw, followed by 7-hole p late with a series of compression screws. I then turned my attention to the medial malleolus. This was displaced. I was unable to get it closed reduced, so I made a small incision over it, reduced th e fracture, held it in place with a tenaculum clamp, and placed 2 K-wires securely fixing the fractur e fragment back to the tibia, drilled the near cortex, and placed 2 partially threaded 4.0 cannulated screws. On the lateral view, the small posterior malleolus piece was nicely reduced, so I did not t hink that warranted further fixation. Both the wounds were irrigated. The skin was closed with 2-0 Vicryl and suzanne. I instilled 30 mL of 0.5% Marcaine with epinephrine on the incisions. Sterile d ressing and a posterior splint with the ankle in neutral dorsiflexion were applied. Patient was awak ened from anesthesia, taken to recovery room in satisfactory condition. There were no immediate intr aoperative complications. TOTAL TOURNIQUET TIME: 46 minutes at 250 mmHg. IMPLANTS USED: 1. Synthes 1/3 tubular plate, 7 hole. 2. Synthes 4.0 cannulated screws, 40 mm in length x2. COMPLICATIONS: None. DRAINS: None. /[id number]
[2018-06-08] MEDS: FUROSEMIDE 40 MG/4 ML VIAL IVP SCH ×2 (12:00→16:40)
[2018-06-08] MEDS: ACETAMINOPHEN 325 MG TAB PO PRN ×2 (12:57→20:57)
--- NOTE | 2018-06-08 15:50 | SOAPPROG ---
SOAP Progress Note Assessment/Plan: Assessment: Left ankle trimalleolar fracture - secondary to fall on 05-31-18; closed reduced in ER on 05-31-18 s/p left ankle ORIF bimalleolar fracture -procedure earlier today Plan: Resumed heparin gtt. Continue NWBing on left lower extremity Keep splint clean, dry and intact Continue pain management Continue PT/OT efforts Continue D/C planning - she is agreeable to SNF Subjective: Patient states she is feeling ok, the left ankle is more sore now since surgery. She denies SOB, CP, fever, chills, nausea. No major complaints or concerns at this time. Objective: Vital Signs Temp Pulse Resp BP Pulse Ox 36.4 C 70 18 132/65 H 89 L 06/08/18 13:57 06/08/18 13:57 06/08/18 13:57 06/08/18 13:57 06/08/18 13:57 Laboratory Results 06/07/18 05:10 06/07/18 05:10 06/07/18 06/08/18 06/09/18 05:59 05:59 05:59 Intake Total 616.8 600 636.9 Output Total 1750 1450 50 Balance -1133.2 -850 586.9 PT 19.7 SEC (12.0-15.0) H 06/08/18 05:00 INR 1.76 (0.83-1.16) H 06/08/18 05:00 Patient lying in bed, no acute distress. LLE: Posterior short leg splint is clean, dry and intact. Visible skin intact. No edema distally into the toes. She can actively move all toes. Grossly NVI distally. ICD10 Worksheet Patient Problems: Problems Problem Status Onset Atrial fibrillation Acute Peripheral edema Acute Skin tear of right upper arm without complication Acute Trimalleolar fracture of ankle, closed Acute UTI (urinary tract infection) Acute Cerebral infarction Active
--- NOTE | 2018-06-08 16:09 | ASMTCMCOM ---
CM Note CM Note Notes: PT/OT rec SNF. Pt prefers to return to [place] and go to SNF where she resides at [facility]. Stella ([phone]) is the CM SW at [facility], she has not been able to be reached today, voicemail left. This CM has to confirm [facility] can accept pt for SNF. The systems analyst engineer did not know the admissions fax to send clinicals, voicemail also left with admissions line. D/c plan of care: Likely return to [facility] for SNF Date Signed: 06/08/2018 04:09 PM Electronically Signed By:JUJU Leslie
--- NOTE | 2018-06-08 16:31 | HOSPPROG ---
Hospitalist Progress Note Assessment/Plan: 67 year old female with hx of afib, CKD, RA, and multiple other medical problems admitted with a left trimalleolar fracture. #Left trimalleolar fracture: post op day 0 status post ORIF with Dr. Rodriguez -PT/OT -back on heparin gtt -Start discussing DC planning with CM -will need to resume coumadin, hopefully in am if cleared by ortho #High thromboembolic risk: -given atrial fibrillation, mech AVR and embolic CVA, needs anticoagulation up to surgery and no reversal -post op now, -resume coumadin but will need bridge. -consider transition to lmwh and coumadin to help expedite DC Epistaxis- Discussed with ent who placed rhino rocket. Needs to remain in place for 7 days. On prophy abx with augmentin, will need follow up with ENT. Hypoxia- says she does not normally require oxygen but has been on 2-3 liters since admission. Does not sound wet on exam. may be due to OHS -cxr with cardiomegaly, and mild edema. -increased lasix, changed to IV #Volume overload -increase lasix today and give IV. 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 creatinine stable. #Pyuria: no sxs. Hold off abx #Osteoporosis: Meets criteria as she had fracture from standing height. Outpatient management. #DM2: basal lantus held and on ssi. #Hyperkalemia: resolved after diuresis. No peaked T-waves (EKG personally reviewed) #Acute metabolic encephalopathy:Still some intermittent confusion. may be related to pain medications. Minimize narcotics. #LUE edema: diuresis. INR therapeutic #H/o subdural hematoma in 2010 (non-operative management) #H/o infrarenal AAA: s/p stent graft repair. 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 She is not neutropenic here. #HTN: Coreg and amlodipine. #Diet: low Na, fluid restriction Subjective: doing well after surgery. ankle is sore. Objective: Vital Signs Temp Pulse Resp BP Pulse Ox 36.4 C 70 18 132/65 H 89 L 06/08/18 13:57 06/08/18 13:57 06/08/18 13:57 06/08/18 13:57 06/08/18 13:57 Laboratory Results 06/07/18 05:10 06/07/18 05:10 06/07/18 06/08/18 06/09/18 05:59 05:59 05:59 Intake Total 616.8 600 636.9 Output Total 1750 1450 50 Balance -1133.2 -850 586.9 PT 19.7 SEC (12.0-15.0) H 06/08/18 05:00 INR 1.76 (0.83-1.16) H 06/08/18 05:00 - Physical Exam Constitutional: chronically ill appearing Eyes: PERRL, anicteric sclera, EOMI Ears, Nose, Mouth, Throat: moist mucous membranes, hearing normal, ears appear normal, no oral mucosal ulcers Cardiovascular: regular rate and rhythym, no murmur, rub, or gallop Respiratory: no respiratory distress, no rales or rhonchi, clear to auscultation Gastrointestinal: normoactive bowel sounds, soft, non-tender abdomen, no palpable masses Genitourinary: no bladder fullness, no bladder tenderness, no renal bruits Skin: no rashes or abrasions, no fluctuance, no induration Musculoskeletal: generalized weakness Neurologic: AAOx3, sensation intact bilaterally Psychiatric: interacting appropriately, not anxious, not encephalopathic, thought process linear Lymph, Heme, Immunologic: no cervical LAD, no supraclavicular LAD ICD10 Worksheet Patient Problems: Problems Problem Status Onset Atrial fibrillation Acute Peripheral edema Acute Skin tear of right upper arm without complication Acute Trimalleolar fracture of ankle, closed Acute UTI (urinary tract infection) Acute Cerebral infarction Active
[2018-06-08] MEDS: HEPARIN/DEXTROSE 500 ML IV SCH (16:40)
[2018-06-08] MEDS: ceFAZolin 2 GM/DEXTROSE 100 ML IV SCH (16:40)
[2018-06-08] MEDS: ATORVASTATIN CALCIUM 40 MG TAB PO SCH (20:58)
[2018-06-09] MEDS: ceFAZolin 2 GM/DEXTROSE 100 ML IV SCH (00:47)
[2018-06-09] MEDS: ACETAMINOPHEN 325 MG TAB PO PRN ×3 (00:56→14:13)
[2018-06-09] MEDS: HEPARIN/DEXTROSE 500 ML IV SCH ×2 (04:44→15:46)
[2018-06-09] MEDS: SODIUM CL NASAL 45 ML BTL EACHNARE SCH ×4 (05:24→20:37)
[2018-06-09 05:30] LABS: PLATELET COUNT 289 10^3/uL (150-400)
[2018-06-09] MEDS: HEPARIN 10,000 UNIT/10 ML MDV (1,000 UNIT/ML) IVP PRN (06:33)
[2018-06-09] MEDS: SODIUM BICARBONATE 650 MG TAB PO SCH ×2 (08:34→20:38)
[2018-06-09] MEDS: SENNOSIDES/DOCUSATE SODIUM TAB PO SCH ×2 (08:34→20:38)
[2018-06-09] MEDS: CARVEDILOL 25 MG TAB PO SCH ×2 (08:35→18:44)
[2018-06-09] MEDS: DULoxetine 30 MG CAP PO SCH (08:37)
[2018-06-09] MEDS: FUROSEMIDE 40 MG/4 ML VIAL IVP SCH (08:37)
[2018-06-09] MEDS: INSULIN LISPRO 100 UNIT/ML SC SCH ×3 (08:39→18:45)
--- NOTE | 2018-06-09 11:14 | PDCONSULT ---
SOAP Progress Note Assessment/Plan: Assessment: Pt with left sided epistaxis. Plan: Rhino rocket in place for 7 days, removed today without complication. Pt will use afrin bid while in hospital. I reviewed epistaxis education and gave her instruction handout. I also gave her nose clips. Discussed frustrating nature of epistaxis. Pt is on heparin and will go home on coumadin. Discussed high likely mcleod she will rebleed. Told her to f/u in office for future epistaxis. 06/09/18 11:10 Subjective: We were consulted from Dr Damaso Mancuso to evaluate and remove nasal pack. Pt states that she has recurrent nose bleeds for days. Always left side. Had pack place my Dr Michael guzman. No bleeding since placement. Pt in hospital for ankle fx. On blood thinners. No hx of clotting disorder. Hx of DC. Objective: Vital Signs Temp Pulse Resp BP Pulse Ox 36.7 C 80 20 136/82 H 89 L 06/09/18 07:37 06/09/18 08:35 06/09/18 07:37 06/09/18 08:35 06/09/18 07:37 PT 19.7 SEC (12.0-15.0) H 06/08/18 05:00 INR 1.76 (0.83-1.16) H 06/08/18 05:00 Pt is afebrile in NAD resting comfortably in chair. Humidified O2 mask is on. Left sided inflatable nasal pack in place and inflated. Removed today without difficulty. Right nose was normal with out prominent vessels. Left side had piece of surgicel over nasal septum. No bleeding after removal. No blood in posterior OP. - Time Spent With Patient Time Spent With Patient: 25 - Pending Discharge Pending Discharge Within 48 Hours: Yes Pending Discharge Date: 06/11/18 Pending Discharge Time: 11:00
[2018-06-09] MEDS ORDERED: FUROSEMIDE 100 MG/10 ML VIAL IVP ONE (12:37)
[2018-06-09] MEDS ORDERED: FUROSEMIDE 80 MG in D5W 50 ML IV ONE (12:45)
--- NOTE | 2018-06-09 13:42 | HOSPPROG ---
Hospitalist Progress Note Assessment/Plan: 67 year old female with hx of afib, CKD, RA, and multiple other medical problems admitted with a left trimalleolar fracture. #Left trimalleolar fracture: post op day 0 status post ORIF with Dr. Rodriguez -PT/OT -Start discussing DC planning with CM -minimize narcotics in setting of constipatin and confusion #High thromboembolic risk: -given atrial fibrillation, mech AVR and embolic CVA, needs anticoagulation up to surgery and no reversal -restart coumadin, with lovenox bridge goal INR 2.5-3.5 Epistaxis- I discussed with ENT who removed rocket today. will dc abx as well. Hypoxia- says she does not normally require oxygen but has been on 2-3 liters since admission. likely multifactorial from OHS, CHF, atalectasis -cxr with cardiomegaly, and mild edema. -increased lasix, changed to IV #Volume overload -increase lasix today and give IV. 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 #CKD: Creatinine climbing, follows with Dr. Valencia. On bicarb. consult placed to nephrology. #Pyuria: no sxs. Hold off abx #Osteoporosis: Meets criteria as she had fracture from standing height. Outpatient management. #DM2: basal lantus held and on ssi. #Hyperkalemia: resolved after diuresis. No peaked T-waves (EKG personally reviewed) #Acute metabolic encephalopathy:Still some intermittent confusion. may be related to pain medications. Minimize narcotics. #LUE edema: diuresis. INR therapeutic #H/o subdural hematoma in 2010 (non-operative management) #H/o infrarenal AAA: s/p stent graft repair. 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 She is not neutropenic here. #HTN: Coreg and amlodipine. #Diet: low Na, fluid restriction Subjective: doing better. did some walking. still some intermittent confusion. pain manageable. Objective: Vital Signs Temp Pulse Resp BP Pulse Ox 36.7 C 69 20 118/54 L 90 L 06/09/18 12:00 06/09/18 12:00 06/09/18 12:00 06/09/18 12:00 06/09/18 12:00 Laboratory Results 06/09/18 05:14 06/09/18 05:14 06/08/18 06/09/18 06/10/18 05:59 05:59 05:59 Intake Total 600 1686.9 200 Output Total 1450 350 Balance -850 1336.9 200 PT 19.7 SEC (12.0-15.0) H 06/08/18 05:00 INR 1.76 (0.83-1.16) H 06/08/18 05:00 - Physical Exam Constitutional: no apparent distress, appears nourished, not in pain, chronically ill appearing, obese Eyes: PERRL, anicteric sclera, EOMI Ears, Nose, Mouth, Throat: moist mucous membranes, hearing normal, ears appear normal, no oral mucosal ulcers Cardiovascular: regular rate and rhythym, no murmur, rub, or gallop, systolic murmur, edema Respiratory: reduced air movement, inspiratory crackles Gastrointestinal: normoactive bowel sounds, soft, non-tender abdomen, no palpable masses Genitourinary: no bladder fullness, no bladder tenderness, no renal bruits Skin: no rashes or abrasions, no fluctuance, no induration Musculoskeletal: generalized weakness Neurologic: AAOx3, sensation intact bilaterally Psychiatric: interacting appropriately, not anxious, not encephalopathic, thought process linear Lymph, Heme, Immunologic: no cervical LAD, no supraclavicular LAD ICD10 Worksheet Patient Problems: Problems Problem Status Onset Atrial fibrillation Acute Peripheral edema Acute Skin tear of right upper arm without complication Acute Trimalleolar fracture of ankle, closed Acute UTI (urinary tract infection) Acute Cerebral infarction Active
--- NOTE | 2018-06-09 14:13 | ASMTCMCOM ---
CM Note CM Note Notes: PLEASE DISREGARD PREVIOUS CASE MANAGEMENT NOTE ENTERED ON 06/08/18. It was incorrectly inputted. CM discussed case w/ Dr. Tucker. Pt had surgery yesterday w/ Dr. Rodriguez. Pt is not medically stable to d/c at this time. Updates sent to [facility]. CM to follow. Plan: [facility] Date Signed: 06/09/2018 02:12 PM Electronically Signed By:LETTY Espinoza
--- NOTE | 2018-06-09 15:09 | SOAPPROG ---
SOAP Progress Note Assessment/Plan: Assessment: Left ankle trimalleolar fracture - secondary to fall on 05-31-18; closed reduced in ER on 05-31-18 s/p left ankle ORIF bimalleolar fracture -POD 1 Plan: Restarted coumadin, with lovenox bridge goal INR 2.5-3.5 Continue NWBing on left lower extremity Keep splint clean, dry and intact Continue pain management Continue PT/OT efforts Continue D/C planning - she is agreeable to [facility] medicine following for multiple other medical issues - not cleared for dc Subjective: Patient states her left ankle is sore, especially around the joint. She also notices that the swelling is causing pressure in her ankle. She denies SOB, CP, fever, chills. Objective: Vital Signs Temp Pulse Resp BP Pulse Ox 36.7 C 69 20 118/54 L 90 L 06/09/18 12:00 06/09/18 12:00 06/09/18 12:00 06/09/18 12:00 06/09/18 12:00 Laboratory Results 06/09/18 05:14 06/09/18 05:14 06/08/18 06/09/18 06/10/18 05:59 05:59 05:59 Intake Total 600 1686.9 200 Output Total 1450 350 Balance -850 1336.9 200 PT 19.7 SEC (12.0-15.0) H 06/08/18 05:00 INR 1.76 (0.83-1.16) H 06/08/18 05:00 Patient sitting comfortably in her chair, she appears more alert today. LLE: Pitting edema in lower extremities bilaterally. Posterior short leg splint is clean, dry and intact. She is able to actively move all toes. Intact to light touch distally. Capillary refill < 2 seconds in all toes. ICD10 Worksheet Patient Problems: Problems Problem Status Onset Atrial fibrillation Acute Peripheral edema Acute Skin tear of right upper arm without complication Acute Trimalleolar fracture of ankle, closed Acute UTI (urinary tract infection) Acute Cerebral infarction Active
[2018-06-09] MEDS ORDERED: WARFARIN SODIUM 2.5 MG TAB PO SCH (16:00)
[2018-06-09] MEDS: ATORVASTATIN CALCIUM 40 MG TAB PO SCH (20:37)
[2018-06-09] MEDS: OXYMETAZOLINE 30 ML NASAL SPRAY EACHNARE SCH (20:45)
[2018-06-10] MEDS: HEPARIN/DEXTROSE 500 ML IV SCH ×2 (01:32→13:41)
[2018-06-10] MEDS: SODIUM CL NASAL 45 ML BTL EACHNARE SCH ×4 (05:36→20:14)
[2018-06-10 06:13] LABS: INR 1.78 (0.83-1.16); PROTIME(PATIENT) 19.9 SEC (12.0-15.0)
--- NOTE | 2018-06-10 08:55 | SOAPPROG ---
SOAP Progress Note Assessment/Plan: Assessment: Left ankle trimalleolar fracture - secondary to fall on 05-31-18; closed reduced in ER on 05-31-18 s/p left ankle ORIF bimalleolar fracture -POD 2 Plan: Currently on coumadin, with lovenox bridge goal INR 2.5-3.5. Continue NWBing on left lower extremity Keep splint clean, dry and intact - reinforced with new Kerlix and MARTIN wraps Continue pain management Continue PT/OT efforts Continue D/C planning - she is agreeable to [facility] Hospital medicine following for multiple other medical issues - not cleared for dc Respiratory therapy consult - patient will need to be discharged with O2 Subjective: Patient states her left ankle is sore. She seems more confused and drowsy this morning and has difficulty having a conversation. She denies chest pain, fever, chills, nausea, vomiting. Objective: Vital Signs Temp Pulse Resp BP Pulse Ox 37.0 C 77 20 132/66 H 92 06/10/18 08:00 06/10/18 08:00 06/10/18 08:00 06/10/18 08:00 06/10/18 08:00 Laboratory Results 06/09/18 05:14 06/10/18 05:55 06/09/18 06/10/18 06/11/18 05:59 05:59 05:59 Intake Total 1686.9 723.4 Output Total 350 550 Balance 1336.9 173.4 PT 19.9 SEC (12.0-15.0) H 06/10/18 05:55 INR 1.78 (0.83-1.16) H 06/10/18 05:55 Patient lying in bed, breathing appears labored. She is on oxygen. She seems more confused this morning. LLE: Posterior short leg splint is in place. There is blood that has soaked through the webroll and MARTIN wraps. New Kerlix and MARTIN wraps were applied. Peripheral edema noted in lower extremities. She can actively move all toes. Intact to light touch distally. Capillary refill < 2-3 seconds in toes. ICD10 Worksheet Patient Problems: Problems Problem Status Onset Atrial fibrillation Acute Peripheral edema Acute Skin tear of right upper arm without complication Acute Trimalleolar fracture of ankle, closed Acute UTI (urinary tract infection) Acute Cerebral infarction Active
[2018-06-10] MEDS: FUROSEMIDE 20 MG TAB PO SCH ×2 (09:45→14:59)
[2018-06-10] MEDS: DULoxetine 30 MG CAP PO SCH (09:45)
[2018-06-10] MEDS: SODIUM BICARBONATE 650 MG TAB PO SCH ×2 (09:46→20:14)
[2018-06-10] MEDS: CARVEDILOL 25 MG TAB PO SCH ×2 (09:47→17:23)
[2018-06-10] MEDS: INSULIN LISPRO 100 UNIT/ML SC SCH ×3 (09:47→18:21)
[2018-06-10] MEDS: OXYMETAZOLINE 30 ML NASAL SPRAY EACHNARE SCH ×2 (09:54→20:16)
[2018-06-10] MEDS: SENNOSIDES/DOCUSATE SODIUM TAB PO SCH ×2 (09:55→20:14)
[2018-06-10] MEDS ORDERED: ALBUMIN 25% 50 ML IV ONE (13:30)
--- NOTE | 2018-06-10 14:10 | GCON ---
[f rep st] CONSULTATION DATE OF CONSULTATION: 06/10/2018 REASON FOR CONSULTATION: Opinion regarding chronic kidney disease. HISTORY OF PRESENT ILLNESS: The patient is a very pleasant 67-year-old female with chronic kidney di sease stage 3 due to a combination of diabetes mellitus type 2, hypertension, and vascular disease. She was in her usual state of health until 05/31/2018, when she fell at home between her bed and her dresser. She was found by her daughter. The squad was called, and she was taken to the hospital. S he was noted to have a left closed trimalleolar ankle fracture. She was taken to the operating room, and it was repaired. However, she has had a slow progress with her recovery. We have been asked to see for her chronic kidney disease. The patient says she feels pretty good today. She is not having fevers, chills, nausea, vomiting, ch est pain, shortness of breath, cough, sputum, hemoptysis, hematemesis, epistaxis, abdominal pain, marjorie rrhea, constipation, melena, hematochezia, blurry vision, double vision, headache, orthopnea, paroxys mal nocturnal dyspnea, palpitations, or syncope. She cannot bear weight on her left ankle. PAST MEDICAL HISTORY: Significant for: 1. Stage 4 chronic kidney disease with a baseline creatinine between 1.9 and 2, again, presumed due to diabetes and hypertension. 2. Diabetes mellitus type 2. 3. Hypertension. 4. History of abdominal aortic aneurysm. 5. Status post aortic aneurysm graft placement. 6. Rheumatoid arthritis with Felty syndrome. 7. History of stroke. 8. Chronic atrial fibrillation. 9. Status post mechanical aortic heart valve replacement. 10. Hyperkalemia due to MARTIN inhibitors. 11. History of splenectomy in 2009. 12. Status post cholecystectomy. 13. Chronic metabolic acidosis. 14. Secondary hyperparathyroidism. ALLERGIES: None. SOCIAL HISTORY: She is a former tobacco user. She is single, has 2 children. She grew up in [facility], but moved to [place] a number of years ago from [place]. REVIEW OF SYSTEMS: A complete 12-point review of systems was performed with pertinent positives and negatives as per the previous sections. CURRENT MEDICATIONS: Include: 1. Tylenol. 2. Amlodipine 10 mg a day. 3. Atorvastatin 40 mg at bedtime. 4. Dulcolax. 5. Calcitriol 0.25 mcg on Tuesdays. 6. Coreg 25 mg twice daily. 7. Dextrose. 8. Cymbalta 30 mg daily. 9. Lasix 60 mg twice daily. 10. Heparin infusion. 11. Warfarin. 12. Hydromorphone. 13. Insulin. 14. Lactulose 20 g t.i.d. p.r.n. 15. Magnesium hydroxide p.r.n. 16. Zofran. PHYSICAL EXAMINATION: VITAL SIGNS: Temperature 36.6 degrees, blood pressure 112/63, respirations 20 , pulse 67. GENERAL: She is awake, alert, cooperative, is in no acute distress. HEENT: Pupils are reactive to light. Extraocular movements are intact. Mucous membranes seem dry. She is edentulous . NECK: Thick. No lymphadenopathy or thyromegaly. HEART: Regular with a click and a murmur. No rub. LUNGS: Poor inspiratory effort. No obvious rales, rhonchi, or wheezes. ABDOMEN: Obese. [place] el sounds are positive. Soft, nontender, nondistended. EXTREMITIES: Her left lower extremity is wr apped. She does have +1 to 2 edema on the right, she is receiving furosemide. NEUROLOGIC: No pili ixis. SKIN: No unusual rashes or lesions. LYMPH: No palpable lymphadenopathy or lymphedema. MUSC ULOSKELETAL: No effusions or tenderness. LABORATORY: Urinalysis from 06/07/2018: pH 5.0, specific gravity 1.011, protein +1, blood +1, trace bacteria, +1 glucose. Most recent renal function tests: Serum sodium is 134, potassium 4.7, chlori de 98, CO2 25, BUN 74, creatinine 2.2 (which is around her baseline), glucose 188. INR today of 1.78 . She remains on a heparin infusion. CBC from 06/09/2018: WBC 9.4, hemoglobin 9.6, hematocrit 30.5 , platelet count 289,000. IMPRESSION: 1. Fall at home. 2. Left trimalleolar ankle fracture that was closed, status post repair. 3. Diabetes mellitus type 2. 4. History of hypertension. 5. Peripheral edema in the face of dry mucous membranes. 6. History of proteinuria. RECOMMENDATIONS: 1. We had a nice discussion regarding her current situation and all questions were answered to her s atisfaction. 2. Continue to follow her electrolytes, volume status and renal function. 3. I think we will try to give her 25 g of albumin x1 and see if that helps mobilize some fluid. I would like to try not to have to increase her diuretics, at least for now. Thank you for allowing me to participate in the care of your patient. If there are any questions, pl ease do not hesitate to contact us. We will be following along with you. /[id number]/MODL
[2018-06-10] MEDS: ACETAMINOPHEN 325 MG TAB PO PRN ×2 (14:24→20:15)
--- NOTE | 2018-06-10 15:03 | ASMTCMCOM ---
CM Note CM Note Notes: CM discussed case w/ Dr. Carranza. Pt will most likely d/c to [facility] tomorrow. CM sent updates. CM met w/ pt and daughter to discuss d/c plan. CM to follow. Plan: [facility] Date Signed: 06/10/2018 03:02 PM Electronically Signed By:LETTY Espinoza
[2018-06-10] MEDS ORDERED: WARFARIN SODIUM 5 MG TAB PO ONE (16:00)
--- NOTE | 2018-06-10 17:36 | HOSPPROG ---
Hospitalist Progress Note Assessment/Plan: #Left trimalleolar fracture, post op day 2 status post ORIF with Dr. Rodriguez -PT/OT and ambulation per ortho -SNF placement, CM arranging #atrial fibrillation, mech AVR and hx embolic CVA, needed anticoagulation up to surgery and no reversal -restarted coumadin and still on heparin bridge -appreciate pharm assistance -goal INR 2.5-3.5 Epistaxis, s/p rhino rocket and ENT consult -removed yesterday -amoxil started bc of rhino, stopped today Acute hypoxia respiratory failure - says she does not normally require oxygen but has been on 2-4 liters since admission -suspect may need chronically at baseline as likely multifactorial from OHS, CHF, atalectasis -hasnt changed much with diuresis #chronic kidney disease with volume overload, revwd previous CXR -creat 2.2 today -appreciate nephro assistance with volume/diuretics (see Dr Silva as outpt), discussed care plan with Dr Butler -weight, I&O, renal diet, fluid restriction #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 Outpatient management. #DM2: basal lantus held and on ssi currently #Hyperkalemia: resolved after diuresis #Acute metabolic encephalopathy, resolved #H/o subdural hematoma in 2010 (non-operative management) #H/o infrarenal AAA: s/p stent graft repair. 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 She is not neutropenic here. #HTN: Coreg and amlodipine. #Anemia -slowly trending down but no indication of acute bleeding -no chronic anemia hx so watch closely DISPO- to SNF Wed or Wednesday depending upon volume status/albumin FULL CODE PCP Dr Olmedo Subjective: Says feeling OK today, no CP/SOB/n/v. Pain in ankle ok with meds. Excited to be able to leave/go to SNF. Objective: Vital Signs Temp Pulse Resp BP Pulse Ox 97.8 F 67 18 111/58 L 91 L 06/10/18 11:33 06/10/18 17:30 06/10/18 17:30 06/10/18 17:30 06/10/18 17:30 Laboratory Results 06/09/18 05:14 06/10/18 05:55 06/09/18 06/10/18 06/11/18 11:59 11:59 11:59 Intake Total 1250 523.4 Output Total 300 650 150 Balance 950 -126.6 -150 PT 19.9 SEC (12.0-15.0) H 06/10/18 05:55 INR 1.78 (0.83-1.16) H 06/10/18 05:55 - Time Spent With Patient Time Spent with Patient: greater than 35 minutes Time Spent with Patient: Greater than 35 minutes spent on this patients care, greater than 50% of time spent counseling, educating, and coordinating care regarding the above mentioned plan. - Physical Exam Constitutional: no apparent distress, obese Eyes: anicteric sclera Ears, Nose, Mouth, Throat: moist mucous membranes, hearing normal Cardiovascular: regular rate and rhythym, systolic murmur Respiratory: no respiratory distress, no rales or rhonchi, reduced air movement (throughout) Gastrointestinal: normoactive bowel sounds, soft, non-tender abdomen (no rebound /guarding) Skin: warm Neurologic: other (grossly intact) Psychiatric: interacting appropriately, not anxious, not encephalopathic ICD10 Worksheet Patient Problems: Problems Problem Status Onset Atrial fibrillation Acute Peripheral edema Acute Skin tear of right upper arm without complication Acute Trimalleolar fracture of ankle, closed Acute UTI (urinary tract infection) Acute Cerebral infarction Active
[2018-06-10] MEDS: ATORVASTATIN CALCIUM 40 MG TAB PO SCH (20:15)
[2018-06-11] MEDS: ACETAMINOPHEN 325 MG TAB PO PRN ×4 (00:03→20:56)
[2018-06-11] MEDS: HEPARIN/DEXTROSE 500 ML IV SCH ×2 (00:29→13:07)
[2018-06-11 05:07] LABS: PROTIME(PATIENT) 21.7 SEC (12.0-15.0)
[2018-06-11] MEDS: SODIUM CL NASAL 45 ML BTL EACHNARE SCH ×4 (05:51→20:40)
--- NOTE | 2018-06-11 08:04 | SOAPPROG ---
SOAP Progress Note Assessment/Plan: Assessment: CONRAD on CKD4- baseline Cr ~2, suspected DM2/HTN related Edema Fracture L ankle s/p ORIF DM2 Anemia CKD s/p mechanical AVR, anticoag Afib Hyponatremia- hypervolemia Plan: Cr up to 2.4 today, still some edema on exam. O2 needs stable at 4L by NC. Her weights may not be accurate but appears to be down 10kg over past few days. Will decrease rate of diuresis some (Change to once a day dosing for now), hold on further IVF. Will continue fluid restriction as Na down to 132 (hypervolemic on exam). While no HD needs currently, I would keep her in hospital and not d/c to rehab until we see stabilization Cr. Pager [phone] [facility] 06/11/18 09:29 Subjective: Feels ok, Notes pain controlled. Denies sob, still on 4L O2 by NC. no dizziness , no n/v. Objective: Vital Signs Temp Pulse Resp BP Pulse Ox 36.9 C 65 18 125/56 H 91 L 06/11/18 04:00 06/11/18 04:00 06/11/18 04:00 06/11/18 04:00 06/11/18 04:00 Laboratory Results 06/11/18 05:55 06/11/18 05:55 06/10/18 06/11/18 06/12/18 05:59 05:59 05:59 Intake Total 723.4 818 Output Total 550 525 Balance 173.4 293 PT 21.7 SEC (12.0-15.0) H 06/11/18 04:28 INR 2.00 (0.83-1.16) H 06/11/18 04:28 Physical Exam - Physical Exam General Appearance: alert, no apparent distress, other (on O2 by NC) EENT: other (mmm) Respiratory: other (occasional exp wheeze) Cardiac/Chest: regular rate, rhythm, other (+valve click) Abdomen: non-tender, soft Extremities: other (+edema bilat LE, LLE in cast) Neuro/Psych: alert, oriented x 3 ICD10 Worksheet Patient Problems: Problems Problem Status Onset Atrial fibrillation Acute Peripheral edema Acute Skin tear of right upper arm without complication Acute Trimalleolar fracture of ankle, closed Acute UTI (urinary tract infection) Acute Cerebral infarction Active
[2018-06-11] MEDS: CARVEDILOL 25 MG TAB PO SCH ×2 (08:26→16:32)
[2018-06-11] MEDS: DULoxetine 30 MG CAP PO SCH (08:27)
[2018-06-11] MEDS: FUROSEMIDE 20 MG TAB PO SCH (08:27)
[2018-06-11] MEDS: SODIUM BICARBONATE 650 MG TAB PO SCH ×2 (08:27→20:39)
[2018-06-11] MEDS: SENNOSIDES/DOCUSATE SODIUM TAB PO SCH ×2 (08:28→20:39)
[2018-06-11] MEDS: INSULIN LISPRO 100 UNIT/ML SC SCH ×3 (08:28→18:36)
[2018-06-11] MEDS: OXYMETAZOLINE 30 ML NASAL SPRAY EACHNARE SCH ×2 (09:47→20:39)
--- NOTE | 2018-06-11 13:15 | HOSPPROG ---
Hospitalist Progress Note Assessment/Plan: 67-year-old with multiple medical issues was found down at home after a fall in which she sustained an ankle fracture and was unable to move. She was eventually found by her daughter after several hours. #Left trimalleolar fracture, status post ORIF on 06/[address] Rodriguez * PT/OT * SNF placement when stable medically #atrial fibrillation, mech AVR and hx embolic CVA, needed anticoagulation up to surgery and no reversal * restarted coumadin and still on heparin bridge, appreciate pharm assistance * goal INR 2.5-3.5 # Epistaxis, s/p rhino rocket and ENT consult status post removal. # Acute hypoxia respiratory failure, likely multifactorial due to atelectasis postop and high obesity hypoventilation syndrome. Continue to monitor will likely need oxygen at the time of discharge * No change with diuresis * continue to monitor # acute on chronic renal failure, followed by Dr. Silva thought secondary to diabetic nephropathy * Increased creatinine here in the hospital, appreciate Nephrology input * Decreased diuresis and monitor creatinine not ready for DC at this time. 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 Outpatient management. #DM2: basal lantus held and on ssi currently #Hyperkalemia: resolved after diuresis #Acute metabolic encephalopathy, resolved #H/o subdural hematoma in 2010 (non-operative management) #H/o infrarenal AAA: s/p stent graft repair. 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 She is not neutropenic here. #HTN: Coreg and amlodipine. #Anemia -slowly trending down but no indication of acute bleeding -no chronic anemia hx so watch closely PCP Dr Olmedo Subjective: Patient frustrated about her weight gain and multiple medical issues. She has been getting up in the chair every day but is quite debilitated and needs help. Pain is currently well controlled in her ankle although has had pain in her back and legs which she has had difficulty dealing with. Objective: Vital Signs Temp Pulse Resp BP Pulse Ox 36.6 C 64 23 H 117/56 L 89 L 06/11/18 11:55 06/11/18 11:55 06/11/18 11:55 06/11/18 11:55 06/11/18 11:55 Laboratory Results 06/11/18 05:55 06/11/18 05:55 06/10/18 06/11/18 06/12/18 05:59 05:59 05:59 Intake Total 723.4 818 Output Total 550 525 Balance 173.4 293 PT 21.7 SEC (12.0-15.0) H 06/11/18 04:28 INR 2.00 (0.83-1.16) H 06/11/18 04:28 - Physical Exam Constitutional: obese Eyes: PERRL Ears, Nose, Mouth, Throat: moist mucous membranes Cardiovascular: regular rate and rhythym Respiratory: no respiratory distress Gastrointestinal: soft, non-tender abdomen Skin: warm Musculoskeletal: joint tenderness, generalized weakness Neurologic: AAOx3 Psychiatric: interacting appropriately ICD10 Worksheet Patient Problems: Problems Problem Status Onset Cerebral infarction Active Trimalleolar fracture of ankle, closed Acute UTI (urinary tract infection) Acute Peripheral edema Acute Skin tear of right upper arm without complication Acute Atrial fibrillation Acute
[2018-06-11] MEDS ORDERED: WARFARIN SODIUM 5 MG TAB PO ONE (16:00)
[2018-06-11] MEDS: FUROSEMIDE 40 MG TAB PO SCH (16:33)
[2018-06-11] MEDS: ATORVASTATIN CALCIUM 40 MG TAB PO SCH (20:39)
[2018-06-12] MEDS: HEPARIN/DEXTROSE 500 ML IV SCH (01:22)
[2018-06-12] MEDS: ACETAMINOPHEN 325 MG TAB PO PRN ×3 (05:50→18:05)
[2018-06-12] MEDS: SODIUM CL NASAL 45 ML BTL EACHNARE SCH ×4 (05:50→20:39)
[2018-06-12 06:13] LABS: INR 3.15 (0.83-1.16); PROTIME(PATIENT) 30.7 SEC (12.0-15.0)
--- NOTE | 2018-06-12 08:19 | SOAPPROG ---
HERNANDO Progress Note Assessment/Plan: Assessment: Plan: 06/05/18 10:44 S/P trimalleolar ankle fx closed reduced in ED INR 2.4 on heparin Possible ORIF Wednesday afternoon, ideally would like INR closer to 2 NPO after breakfast recheck INR in am 06/12/18 08:17 S/P ORIF Lt bimalleolar ankle fx SNF will be [facility] 4-6 weeks F/U [facility] 2 weeks for xrays, staple removal and splint change Subjective: not much pain in the ankle Today refused PT this am Objective: splint c/d/i no further bleeding moving toes sensation to lt touch intact Vital Signs Temp Pulse Resp BP Pulse Ox 36.8 C 70 22 H 108/55 L 92 06/12/18 07:16 06/12/18 07:16 06/12/18 07:16 06/12/18 07:16 06/12/18 07:16 Laboratory Results 06/11/18 05:55 06/12/18 05:45 06/11/18 06/12/18 06/13/18 05:59 05:59 05:59 Intake Total 818 1104 Output Total 525 375 Balance 293 729 PT 30.7 SEC (12.0-15.0) H 06/12/18 05:45 INR 3.15 (0.83-1.16) H 06/12/18 05:45 ICD10 Worksheet Patient Problems: Problems Problem Status Onset Atrial fibrillation Acute Peripheral edema Acute Skin tear of right upper arm without complication Acute Trimalleolar fracture of ankle, closed Acute UTI (urinary tract infection) Acute Cerebral infarction Active
--- NOTE | 2018-06-12 08:45 | SOAPPROG ---
SOAP Progress Note Assessment/Plan: Assessment: CONRAD on CKD4- baseline Cr ~2, suspected DM2/HTN related Edema Fracture L ankle s/p ORIF DM2 Anemia CKD s/p mechanical AVR, anticoag Afib Hyponatremia- hypervolemic Hypoxia, cough Plan: Cr up to 2.5-- hoping rate of rise slowing. But volume status seems worse. Her weights are hard to interpret-- appears down 10 kg over past few days but still quite volume up on exam. I had decreased her diuretics yesterday but will increase today given edema, sob. Would consider CXR as well- pt notes more sob and productive cough with wet upper airways on exam. Na down to 131 and hypervolemic- lasix as above. I discussed with Dr. Olmedo Pager [phone] [facility] 06/12/18 09:13 Subjective: +cough, feels a bit more SOB. On 4L O2. No cp, fevers. Objective: Vital Signs Temp Pulse Resp BP Pulse Ox 36.8 C 70 22 H 108/55 L 92 06/12/18 07:16 06/12/18 07:16 06/12/18 07:16 06/12/18 07:16 06/12/18 07:16 Laboratory Results 06/11/18 05:55 06/12/18 05:45 06/11/18 06/12/18 06/13/18 05:59 05:59 05:59 Intake Total 818 1104 Output Total 525 375 Balance 293 729 PT 30.7 SEC (12.0-15.0) H 06/12/18 05:45 INR 3.15 (0.83-1.16) H 06/12/18 05:45 Physical Exam - Physical Exam General Appearance: alert, no apparent distress, other (on O2, not tachypneic, + wet upper airway noise) Respiratory: other (coas) Cardiac/Chest: regular rate, rhythm, other (+valve click) Abdomen: normal bowel sounds, non-tender, soft Skin: warm/dry Extremities: other (+edema bilat LE) Neuro/Psych: alert, oriented x 3 ICD10 Worksheet Patient Problems: Problems Problem Status Onset Atrial fibrillation Acute Peripheral edema Acute Skin tear of right upper arm without complication Acute Trimalleolar fracture of ankle, closed Acute UTI (urinary tract infection) Acute Cerebral infarction Active
[2018-06-12] MEDS: SODIUM BICARBONATE 650 MG TAB PO SCH ×2 (09:01→20:38)
[2018-06-12] MEDS: DULoxetine 30 MG CAP PO SCH (09:01)
[2018-06-12] MEDS: CARVEDILOL 25 MG TAB PO SCH ×2 (09:02→18:04)
[2018-06-12] MEDS: INSULIN LISPRO 100 UNIT/ML SC SCH ×3 (09:02→18:05)
[2018-06-12] MEDS: FUROSEMIDE 40 MG TAB PO SCH (09:02)
[2018-06-12] MEDS: OXYMETAZOLINE 30 ML NASAL SPRAY EACHNARE SCH ×2 (09:12→20:39)
--- NOTE | 2018-06-12 10:07 | HOSPPROG ---
Hospitalist Progress Note Assessment/Plan: 67-year-old with multiple medical issues was found down at home after a fall in which she sustained an ankle fracture and was unable to move. She was eventually found by her daughter after several hours. #Left trimalleolar fracture, status post ORIF on 06/[address] Rodriguez * PT/OT * SNF placement when stable medically #atrial fibrillation, mech AVR and hx embolic CVA, needed anticoagulation up to surgery and no reversal * restarted coumadin and still on heparin bridge, appreciate pharm assistance * goal INR 2.5-3.5 * DC Heparin continue to monitor INR # Epistaxis, s/p rhino rocket and ENT consult status post removal. # Acute hypoxia respiratory failure, likely multifactorial due to atelectasis postop and high obesity hypoventilation syndrome. Continue to monitor will likely need oxygen at the time of discharge * Recheck chest x-ray * continue to monitor # acute on chronic renal failure, followed by Dr. 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 Outpatient management. #DM2: Resume Lantus and follow blood sugars. Continue SSI #Hyperkalemia: resolved after diuresis #Acute metabolic encephalopathy, resolved #H/o subdural hematoma in 2010 (non-operative management) #H/o infrarenal AAA: s/p stent graft repair. 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 She is not neutropenic here. #HTN: Coreg and amlodipine. #Anemia -slowly trending down but no indication of acute bleeding -no chronic anemia hx so watch closely PCP Dr Olmedo Subjective: Overall feels good minimal pain however ongoing shortness of breath. Echo reviewed normal LV function noted Objective: Vital Signs Temp Pulse Resp BP Pulse Ox 36.8 C 70 22 H 108/55 L 92 06/12/18 07:16 06/12/18 09:02 06/12/18 07:16 06/12/18 09:02 06/12/18 07:16 Laboratory Results 06/11/18 05:55 06/12/18 05:45 06/11/18 06/12/18 06/13/18 05:59 05:59 05:59 Intake Total 818 1104 Output Total 525 375 Balance 293 729 PT 30.7 SEC (12.0-15.0) H 06/12/18 05:45 INR 3.15 (0.83-1.16) H 06/12/18 05:45 - Physical Exam Constitutional: not in pain, obese Eyes: PERRL Ears, Nose, Mouth, Throat: ears appear normal Cardiovascular: irregularly irregular Respiratory: reduced air movement, respiratory distress Gastrointestinal: no palpable masses Genitourinary: no bladder fullness Skin: normal color Musculoskeletal: generalized weakness Neurologic: other (Alert) Psychiatric: interacting appropriately ICD10 Worksheet Patient Problems: Problems Problem Status Onset Cerebral infarction Active Trimalleolar fracture of ankle, closed Acute UTI (urinary tract infection) Acute Peripheral edema Acute Skin tear of right upper arm without complication Acute Atrial fibrillation Acute
[2018-06-12] MEDS: SENNOSIDES/DOCUSATE SODIUM TAB PO SCH ×2 (10:37→20:38)
--- NOTE | 2018-06-12 12:40 | ASMTCMCOM ---
CM Note CM Note Notes: Patient continues to have ongoing shortness of breath and will likely need O2 at discharge. Patient getting a recheck with chest x-ray. Patient continues to need diuresis given the ongoing anasarca. Discharge plan remains [facility] when patient is ready to discharge. CM will follow. Date Signed: 06/12/2018 12:39 PM Electronically Signed By:Laine Licea LCSW
[2018-06-12] MEDS: INSULIN GLARGINE 100 UNITS/ML UNIT SC SCH (13:38)
[2018-06-12] MEDS: FUROSEMIDE 40 MG/4 ML VIAL IVP SCH (18:05)
[2018-06-12] MEDS: ATORVASTATIN CALCIUM 40 MG TAB PO SCH (20:38)
[2018-06-13] MEDS: ACETAMINOPHEN 325 MG TAB PO PRN ×3 (04:29→21:24)
[2018-06-13 05:19] LABS: INR 3.42 (0.83-1.16); PROTIME(PATIENT) 32.7 SEC (12.0-15.0)
[2018-06-13] MEDS: SODIUM CL NASAL 45 ML BTL EACHNARE SCH ×4 (06:03→21:17)
[2018-06-13] MEDS: OXYMETAZOLINE 30 ML NASAL SPRAY EACHNARE SCH ×2 (08:44→21:13)
[2018-06-13] MEDS: CARVEDILOL 25 MG TAB PO SCH ×2 (08:45→17:46)
[2018-06-13] MEDS: SODIUM BICARBONATE 650 MG TAB PO SCH ×2 (08:45→21:12)
[2018-06-13] MEDS: DULoxetine 30 MG CAP PO SCH (08:45)
[2018-06-13] MEDS: FUROSEMIDE 40 MG/4 ML VIAL IVP SCH (08:45)
[2018-06-13] MEDS: INSULIN LISPRO 100 UNIT/ML SC SCH ×3 (08:45→18:12)
[2018-06-13] MEDS: SENNOSIDES/DOCUSATE SODIUM TAB PO SCH ×2 (08:46→21:12)
--- NOTE | 2018-06-13 10:31 | SOAPPROG ---
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 CONRAD on CKD IV -baseline Cr near 2, up to 2.5mg/dL -likely related to volume status and will allow to increase for diuresis -keep MAP>65, avoid contrast -no acute indication for dialysis HTN/vol -still overloaded -increasing diuretic -may get cardiology consult per Dr. Olmedo Anemia -iron studies pending -Hb stable >9, no indication for EPO Will continue to follow, please contact if ?'s. #[phone]. 06/13/18 11:22 Objective: Vital Signs Temp Pulse Resp BP Pulse Ox 36.6 C 71 17 125/57 H 91 L 06/13/18 08:00 06/13/18 08:45 06/13/18 08:00 06/13/18 08:45 06/13/18 08:00 Laboratory Results 06/11/18 05:55 06/13/18 04:30 06/12/18 06/13/18 06/14/18 05:59 05:59 05:59 Intake Total 1104 1050 450 Output Total 375 200 Balance 729 1050 250 PT 32.7 SEC (12.0-15.0) H 06/13/18 04:30 INR 3.42 (0.83-1.16) H 06/13/18 04:30 Physical Exam - Physical Exam General Appearance: alert, obese EENT: PERRL/EOMI Neck: non-tender, supple Respiratory: accessory muscle use, decreased breath sounds, crackles Cardiac/Chest: irregularly irregular Abdomen: normal bowel sounds, non-tender, distended Skin: pallor Extremities: normal range of motion, pedal edema, swelling Neuro/Psych: oriented x 3, depressed affect ICD10 Worksheet Patient Problems: Problems Problem Status Onset Atrial fibrillation Acute Peripheral edema Acute Skin tear of right upper arm without complication Acute Trimalleolar fracture of ankle, closed Acute UTI (urinary tract infection) Acute Cerebral infarction Active
--- NOTE | 2018-06-13 10:56 | HOSPPROG ---
Hospitalist Progress Note Assessment/Plan: 67-year-old with multiple medical issues was found down at home after a fall in which she sustained an ankle fracture and was unable to move. She was eventually found by her daughter after several hours. #Left trimalleolar fracture, status post ORIF on 06/[address] Rodriguez * PT/OT * SNF placement when stable medically # anasarca unclear if related to CHF, renal failure, pulmonary hypertension or more likely a combination of all of these. She has been difficult to diurese as some of the swelling has been going on for several months. Currently on BID IV Lasix with weight gain overnight * Appreciate renal * Cardiology consult, consider Lasix drip and transferred to PCU if this would be helpful. * Status post aortic valve replacement which appeared stable on her recent echocardiogram #atrial fibrillation, mech AVR and hx embolic CVA, needed anticoagulation up to surgery and no reversal * restarted coumadin and still on heparin bridge, appreciate pharm assistance * goal INR 2.5-3.5 * DC Heparin continue to monitor INR # Epistaxis, s/p rhino rocket and ENT consult status post removal. # Acute hypoxia respiratory failure, likely multifactorial due to atelectasis postop and high obesity hypoventilation syndrome. Continue to monitor will likely need oxygen at the time of discharge * Chest x-ray done, likely CHF # acute on chronic renal failure, followed by Dr. 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 Outpatient management. #DM2: Resume Lantus and follow blood sugars. Continue SSI #Hyperkalemia: resolved after diuresis #Acute metabolic encephalopathy, resolved #H/o subdural hematoma in 2010 (non-operative management) #H/o infrarenal AAA: s/p stent graft repair. 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 She is not neutropenic here. #HTN: Coreg and amlodipine. #Anemia -slowly trending down but no indication of acute bleeding -no chronic anemia hx so watch closely PCP Dr Olmedo Subjective: Patient continues to have significant oxygen requirements at do not soon to be getting better despite diuresis. Objective: Vital Signs Temp Pulse Resp BP Pulse Ox 36.6 C 71 17 125/57 H 91 L 06/13/18 08:00 06/13/18 08:45 06/13/18 08:00 06/13/18 08:45 06/13/18 08:00 Laboratory Results 06/11/18 05:55 06/13/18 04:30 06/12/18 06/13/18 06/14/18 05:59 05:59 05:59 Intake Total 1104 1050 450 Output Total 375 200 Balance 729 1050 250 PT 32.7 SEC (12.0-15.0) H 06/13/18 04:30 INR 3.42 (0.83-1.16) H 06/13/18 04:30 - Physical Exam Constitutional: obese (Morbid) Eyes: PERRL Cardiovascular: irregularly irregular Respiratory: inspiratory crackles, bronchial breath sounds, respiratory distress Gastrointestinal: soft, non-tender abdomen Skin: normal color Neurologic: AAOx3 Psychiatric: interacting appropriately ICD10 Worksheet Patient Problems: Problems Problem Status Onset Cerebral infarction Active Trimalleolar fracture of ankle, closed Acute UTI (urinary tract infection) Acute Peripheral edema Acute Skin tear of right upper arm without complication Acute Atrial fibrillation Acute
--- NOTE | 2018-06-13 11:22 | SOAPPROG ---
SOAP Progress Note Assessment/Plan: Assessment: Left ankle trimalleolar fracture - secondary to fall on 05-31-18; closed reduced in ER on 05-31-18 s/p left ankle ORIF bimalleolar fracture -POD 5 Acute hypoxia - likely multifactorial due to atelectasis postop, high obesity hypoventilation syndrome, possible CHF Plan: Currently on coumadin Continue NWBing on left lower extremity Keep splint clean, dry and intact - reinforced with new Kerlix and MARTIN wraps Continue pain management Continue PT/OT efforts Continue D/C planning - she is agreeable to [facility] Hospital medicine following for multiple other medical issues - not cleared for dc Respiratory therapy consult - patient will need to be discharged with O2 - probable CHF Subjective: Patient states her left ankle feels good, there is no significant pain at this time. She has been compliant with the splint and her NWBing status. Her main complaint is feeling short of breath. According to hospital medicine this is likely multifactorial due to atelectasis postop, high obesity hypoventilation syndrome and possible CHF. Patient will need to be discharged with oxygen Objective: Vital Signs Temp Pulse Resp BP Pulse Ox 36.6 C 71 17 125/57 H 91 L 06/13/18 08:00 06/13/18 08:45 06/13/18 08:00 06/13/18 08:45 06/13/18 08:00 Laboratory Results 06/11/18 05:55 06/13/18 04:30 06/12/18 06/13/18 06/14/18 05:59 05:59 05:59 Intake Total 1104 1050 450 Output Total 375 200 Balance 729 1050 250 PT 32.7 SEC (12.0-15.0) H 06/13/18 04:30 INR 3.42 (0.83-1.16) H 06/13/18 04:30 Patient lying in bed, she is coughing and appears to be short of breath. LLE: Posterior short leg splint is intact. There is dried saturated blood on the kerlix and inner layers of the MARTIN wrap. No significant edema distally into the toes. She is able to actively move all toes. Grossly NVI distally. ICD10 Worksheet Patient Problems: Problems Problem Status Onset Atrial fibrillation Acute Peripheral edema Acute Skin tear of right upper arm without complication Acute Trimalleolar fracture of ankle, closed Acute UTI (urinary tract infection) Acute Cerebral infarction Active
[2018-06-13] MEDS: INSULIN GLARGINE 100 UNITS/ML UNIT SC SCH (14:24)
[2018-06-13] MEDS ORDERED: FUROSEMIDE 80 MG in D5W 50 ML IV SCH (15:00)
[2018-06-13] MEDS ORDERED: FUROSEMIDE 100 MG/10 ML VIAL IVP SCH (15:00)
[2018-06-13] MEDS ORDERED: WARFARIN SODIUM 1 MG TAB PO ONE (16:00)
--- NOTE | 2018-06-13 16:19 | GCON ---
[f rep st] CONSULTATION CARDIOLOGY CONSULTATION DATE OF CONSULTATION: 06/13/2018 REFERRING PHYSICIAN: Herlinda Olmedo MD REASON FOR CONSULTATION: We are asked by Dr. Olmedo to evaluate the patient for her worsening CHF. HISTORY OF PRESENT ILLNESS: The patient is a 67-year-old female with a history of aortic stenosis, status post mechanical AVR in 2007, type 2 diabetes mellitus , hypertension, dyslipidemia, PVD with previous infrarenal AAA stenting, chronic kidney disease, likely permanent atrial fibrillation who is admitted after a mechanical fall on 05/31/2018. She reports that she slipped on the floor and was down from approximately 7:30 a.m. to 3 or 4 p.m. She denies any antecedent loss of consciousness or palpitations or chest pains. She reports that over these past few months, she has gotten weaker and weaker, which she attributes to deconditioning and her arthritic pain. She was last seen by me in the office for Cardiology in December of 2015, at which time she was initially detected to be in atrial fibrillation as a new diagnosis. She did not do the stress test, monitor, or echo that we ordered, and also did not have much in way of followup, though stress testing and echo and a heart monitor were ordered at that point. Overall, she reports that she has had a lot of difficultly getting around and has become more homebound. She denies any PND, orthopnea, preceding this admission. She has not been noting fever, chills. She is a former smoker, but has never been formally diagnosed with any kind of lung disease. She does not use a CPAP at home. Current echo from this admission on 05/31/2018, shows EF of 60% to 65%, mild concentric LVH, moderately dilated RV with normal RV systolic function, [id number] TR, RVSP of 53 mmHg. PAST MEDICAL HISTORY: 1. Likely permanent atrial fibrillation. 2. CKD. 3. AAA with status post endograft. 4. Rheumatoid arthritis with Felty syndrome. 5. Subdural hematoma. 6. History of embolic stroke. 7. History of depression. 8. Lumbar radiculopathy. 9. CVA. 10. Type 2 diabetes mellitus. 11. Hypertension. 12. Dyslipidemia. PAST SURGICAL HISTORY: Includes aortic valve replacement with mechanical valve in 2007, splenectomy, and cholecystectomy. FAMILY HISTORY: Reviewed, shows her father of coronary disease at age 76. This was in the 60s. SOCIAL HISTORY: Patient is a former smoker, having quit approximately 10 years ago. She was 1 pack per day for 50 years. She does not drink alcohol. She lives independently and has 2 cats. OUTPATIENT MEDICATIONS: Include amlodipine, atorvastatin, carvedilol, calcitriol, insulin, furosemide, duloxetine, sodium bicarb, warfarin. ALLERGIES: No known drug allergies. REVIEW OF SYSTEMS: Reviewed. As per HPI. A complete 10-point review of systems was obtained. PHYSICAL EXAMINATION: VITAL SIGNS: BP of 121/60, heart rate 67, respirations 18, O2 saturation 96% on 6 L/minute, temp of 97.6 degrees Fahrenheit. GENERAL: She is a very pleasant female in no apparent distress. HEENT: Normocephalic , atraumatic. She is edentulous. Mucous membranes are moist. HEART: Regular rate and rhythm with very distant. LUNGS: With crackles throughout the bases and mid lung. ABDOMEN: Obese. LOWER EXTREMITIES: Show 2 to 3+ pitting edema. Left leg is in an Christian bandage. PSYCHIATRIC: Normal mood and affect. DATABASE: BMP: Sodium 131, potassium 4.5, chloride 95, CO2 24, BUN 77, creatinine 2.5, glucose of 104. Hemoglobin A1c was reviewed, which shows 6.8%. NT proBNP from today is 7180. CBC with WBC 9.49, hemoglobin 9.1, hematocrit 28.4, platelet count of 328. INR 3.42. A 12-lead ECG from 05/31/2018, personally interpreted reveals atrial fibrillation, controlled ventricular rates. I have reviewed telemetry, which shows AFib with CVR. I have spoken to Dr. Olmedo about patient's care. IMPRESSION AND PLAN: The patient is a 67-year-old female who presents with a trimalleolar fracture, status post open reduction, internal fixation. She has had issues with fluid overload and hypoxia. 1. Acute hypoxic respiratory failure. Her echo shows a dilated right ventricle , as well as elevated right ventricular systolic pressure, which likely is related to untreated lung disease. She will be treated with ongoing diuretic therapy, as well as supplemental oxygen as needed. 2. Atrial fibrillation. This was detected in 2016, and patient had not had cardiology followup since then. She may continue carvedilol for rate control. Continue Warfarin for elevated CHADS2-VA2Sc of 7 as well as mechanical AVR. 3. Diastolic congestive heart failure with right greater than left heart failure. We will treat with ongoing diuresis. Her amlodipine dose will be lowered. We will start her on Lasix GTT as she still is quite volume overloaded and her output has been pretty minimal despite high dose Lasix at 80 twice a day. 4. History of aortic valve replacement. She will need ongoing warfarin therapy for her mechanical aortic valve replacement. Her aortic valve prosthesis appears to be functioning normally. /[id number]/MODL MTDD
[2018-06-13] MEDS: ATORVASTATIN CALCIUM 40 MG TAB PO SCH (21:12)
[2018-06-14 04:51] LABS: INR 3.42 (0.83-1.16); PROTIME(PATIENT) 32.7 SEC (12.0-15.0)
[2018-06-14] MEDS: ACETAMINOPHEN 325 MG TAB PO PRN ×3 (06:05→18:06)
[2018-06-14] MEDS: SODIUM CL NASAL 45 ML BTL EACHNARE SCH ×4 (06:07→21:15)
[2018-06-14] MEDS: CARVEDILOL 25 MG TAB PO SCH ×2 (09:06→18:07)
[2018-06-14] MEDS: SENNOSIDES/DOCUSATE SODIUM TAB PO SCH ×2 (09:06→21:17)
[2018-06-14] MEDS: DULoxetine 30 MG CAP PO SCH (09:08)
[2018-06-14] MEDS: SODIUM BICARBONATE 650 MG TAB PO SCH (09:08)
[2018-06-14] MEDS: INSULIN LISPRO 100 UNIT/ML SC SCH ×3 (09:14→17:22)
--- NOTE | 2018-06-14 10:50 | SOAPPROG ---
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 CONRAD on CKD IV -baseline Cr near 2, currently stable at 2.5mg/dL -likely related to volume status and agree with diuresis -keep MAP>65, avoid contrast -monitor accurate UO -no acute indication for dialysis HTN/vol -still overloaded -lasix gtt per cardiology -hold amlodipine and continue CCB for now Hyponatremia -fluid restriction to 1.2L -low sodium diet -hypervolemic Anemia -iron studies pending -Hb stable >9, no indication for EPO Acidosis -resolved, bicarb 24 -hold supplement Will continue to follow, please contact if ?'s. #[phone]. 06/14/18 12:04 Subjective: Patient still feeling awful. Placed on lasix gtt per cardiology. Objective: Vital Signs Temp Pulse Resp BP Pulse Ox 36.6 C 69 22 H 116/61 93 06/14/18 07:28 06/14/18 09:06 06/14/18 07:28 06/14/18 09:09 06/14/18 07:28 Laboratory Results 06/11/18 05:55 06/14/18 09:25 06/13/18 06/14/18 06/15/18 05:59 05:59 05:59 Intake Total 1050 1550 Output Total 775 200 Balance 1050 775 -200 PT 32.7 SEC (12.0-15.0) H 06/14/18 04:34 INR 3.42 (0.83-1.16) H 06/14/18 04:34 Physical Exam - Physical Exam General Appearance: mild distress, obese EENT: PERRL/EOMI Neck: non-tender, full range of motion, supple Respiratory: decreased breath sounds, crackles Cardiac/Chest: edema, irregularly irregular Abdomen: normal bowel sounds, non-tender, soft Skin: pallor Extremities: normal range of motion, pedal edema, swelling, other (ankle fx wrapped) Neuro/Psych: alert, normal mood/affect, oriented x 3 ICD10 Worksheet Patient Problems: Problems Problem Status Onset Atrial fibrillation Acute Peripheral edema Acute Skin tear of right upper arm without complication Acute Trimalleolar fracture of ankle, closed Acute UTI (urinary tract infection) Acute Cerebral infarction Active
--- NOTE | 2018-06-14 11:03 | SOAPPROG ---
SOAP Progress Note Assessment/Plan: Assessment: Left ankle trimalleolar fracture - secondary to fall on 05-31-18; closed reduced in ER on 05-31-18 s/p left ankle ORIF bimalleolar fracture -POD 6 Acute hypoxia - likely multifactorial due to atelectasis postop, high obesity hypoventilation syndrome, possible CHF Plan: Currently on coumadin Continue NWBing on left lower extremity Keep splint clean, dry and intact - reinforced with new Kerlix and MARTIN wraps Continue pain management Continue PT/OT efforts Continue D/C planning - she is agreeable to [facility] Hospital medicine following for multiple other medical issues - d/c when medically stable Respiratory therapy consult - patient will need to be discharged with O2 - probable CHF Subjective: Patient states she is feeling a bit better this morning, she still feels short of breath. Regarding her left ankle, states there is no pain at this time. She has continue to be NWBing in the splint. She denies chest pain, headache, dizziness, fever, chills. Objective: Vital Signs Temp Pulse Resp BP Pulse Ox 36.6 C 69 22 H 116/61 93 06/14/18 07:28 06/14/18 09:06 06/14/18 07:28 06/14/18 09:09 06/14/18 07:28 Laboratory Results 06/11/18 05:55 06/14/18 09:25 06/13/18 06/14/18 06/15/18 05:59 05:59 05:59 Intake Total 1050 1550 Output Total 775 200 Balance 1050 775 -200 PT 32.7 SEC (12.0-15.0) H 06/14/18 04:34 INR 3.42 (0.83-1.16) H 06/14/18 04:34 Patient resting in bed, oxygen mask in place. She appears to be short of breath but less so than yesterday. LLE: Minimal edema distally into her left foot. Posterior short leg splint is clean, dry and intact. She can actively move all toes. Grossly NVI distally ICD10 Worksheet Patient Problems: Problems Problem Status Onset Atrial fibrillation Acute Peripheral edema Acute Skin tear of right upper arm without complication Acute Trimalleolar fracture of ankle, closed Acute UTI (urinary tract infection) Acute Cerebral infarction Active
[2018-06-14] MEDS: CALCITRIOL 0.25 MCG CAP PO SCH (13:28)
[2018-06-14] MEDS: OXYMETAZOLINE 30 ML NASAL SPRAY EACHNARE SCH ×2 (13:28→21:13)
--- NOTE | 2018-06-14 13:54 | HOSPPROG ---
Hospitalist Progress Note Assessment/Plan: 67-year-old with multiple medical issues was found down at home after a fall in which she sustained an ankle fracture and was unable to move. She was eventually found by her daughter after several hours. She has had her ankle fracture treated and will eventually go to skilled rehab however she has not been medically stable because of renal failure and fluid overload. #Left trimalleolar fracture, status post ORIF on 06/[address] Rodriguez * PT/OT * SNF placement when stable medically # anasarca unclear if related to CHF, renal failure, pulmonary hypertension or more likely a combination of all of these. She has been difficult to diurese as some of the swelling has been going on for several months. Currently on BID IV Lasix with weight gain overnight * Appreciate renal * reviewed cardiology eval, ? lasix drip, not ordered per cards, currently on IV push BID * Status post aortic valve replacement which appeared stable on her recent echocardiogram #atrial fibrillation, mech AVR and hx embolic CVA, needed anticoagulation up to surgery and no reversal * restarted coumadin and still on heparin bridge, appreciate pharm assistance * goal INR 2.5-3.5 * DC Heparin continue to monitor INR # Epistaxis, s/p rhino rocket and ENT consult status post removal. # Acute hypoxia respiratory failure, likely multifactorial due to atelectasis postop and high obesity hypoventilation syndrome. Continue to monitor will likely need oxygen at the time of discharge * Chest x-ray done, likely CHF # acute on chronic renal failure, followed by Dr. 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 Outpatient management. #DM2: Resume Lantus and follow blood sugars. Continue SSI #Hyperkalemia: resolved after diuresis #Acute metabolic encephalopathy, resolved #H/o subdural hematoma in 2010 (non-operative management) #H/o infrarenal AAA: s/p stent graft repair. 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 She is not neutropenic here. #HTN: Coreg and amlodipine. #Anemia -slowly trending down but no indication of acute bleeding -no chronic anemia hx so watch closely PCP Dr Honorio LOPEZ the SNF once medically stable goals are to see improvement in creatinine and to decrease overall fluid status as she has anasarca now. Subjective: Feels a little bit better today. Still quite fluid overloaded Objective: Vital Signs Temp Pulse Resp BP Pulse Ox 36.6 C 71 22 H 123/70 H 91 L 06/14/18 11:52 06/14/18 11:52 06/14/18 11:52 06/14/18 11:52 06/14/18 11:52 Laboratory Results 06/11/18 05:55 06/14/18 09:25 06/13/18 06/14/18 06/15/18 05:59 05:59 05:59 Intake Total 1050 1550 250 Output Total 775 200 Balance 1050 775 50 PT 32.7 SEC (12.0-15.0) H 06/14/18 04:34 INR 3.42 (0.83-1.16) H 06/14/18 04:34 - Physical Exam Constitutional: obese Eyes: PERRL Cardiovascular: irregularly irregular Respiratory: no respiratory distress, reduced air movement Gastrointestinal: soft, non-tender abdomen Skin: normal color Neurologic: AAOx3 Psychiatric: interacting appropriately ICD10 Worksheet Patient Problems: Problems Problem Status Onset Cerebral infarction Active Trimalleolar fracture of ankle, closed Acute UTI (urinary tract infection) Acute Peripheral edema Acute Skin tear of right upper arm without complication Acute Atrial fibrillation Acute
[2018-06-14] MEDS: INSULIN GLARGINE 100 UNITS/ML UNIT SC SCH (14:09)
[2018-06-14] MEDS: FUROSEMIDE 100 MG in D5W 100 ML IV SCH (15:27)
[2018-06-14] MEDS: WARFARIN SODIUM 2.5 MG TAB PO SCH (15:28)
--- NOTE | 2018-06-14 16:30 | PDCARPN ---
Cardiology Progress Note Chief Complaint: DCHF/AHRF/AF Assessment/Plan: Assessment: 67F PMH htn, obesity BMI 41, DM, mechanical AVR in 2007, normal cors in 2007, permanent AF, dyslipidemia, previous infrarenal stenting, CVA when off AC in 2011, admitted with mechanical fall/found down. Sustained trimalleolar fx as a result of fall. Echo from this admission showed EF 60-65, dilated RV with normal RVSF, mod- severe TR, PHTN 53, Ao valve mechanical prosthesis without AR/, mod FUENTES/LAE. We were asked to evaluate patient for anasarca, increased O2 needs, in setting of VHD and DCHF. Plan: #. biventricular failure with RHF>DCHF BNP elevated to 7180, has peripheral and pulmonary edema being started on Lasix gtt #. AHRF: was not on O2 in outpatient setting and now needing 6 lpm supplemental O2 Afebrile and no consolidation on CXR likely related to pulmonary disease given 50 py history of tobacco abuse will likely refer to pulmonology in outpatient setting versus inpt evaluation #. permanent AF: [id number] 7 high risk on Warfarin #. AVD: mechanical prosthesis functioning appropriately without /AR #. PHTN: worsened on this recent echo continue diuresis and Amlodipine 06/14/18 16:19 Subjective: No pain. Notes ongoing fatigue and edema. Objective: Vital Signs (8 Hrs) Temp Pulse Resp BP Pulse Ox 06/14/18 16:00 98.2 F 74 19 111/51 L 90 L 06/14/18 11:52 97.9 F 71 22 H 123/70 H 91 L 06/14/18 09:09 116/61 06/14/18 09:06 69 116/61 Intake/Output (24 Hrs) 06/13/18 06/14/18 06/15/18 05:59 05:59 05:59 Intake Total 1050 1550 250 Output Total 775 200 Balance 1050 775 50 Intake: Oral (ml) 1050 1550 250 Output: Urine (ml) 775 200 Bedpan 575 200 Bedside Commode 200 Other: Weight 120.4 kg 122.1 kg 121 kg Intake Quantity Yes Yes Yes Sufficient Number of Voids Bedpan 1 1 1 Bedside Commode 1 1 Incontinence 1 1 Number of Stools Bedpan 1 1 Bedside Commode 1 Incontinence 1 Result Diagrams: 06/11/18 05:55 06/14/18 14:46 Telemetry: reviewed AF CVR - Physical Exam Constitutional: no apparent distress Eyes: PERRL Ears, Nose, Mouth, Throat: moist mucous membranes Cardiovascular: irregularly irregular, other (distant heart sounds), No systolic murmur Respiratory: reduced air movement, inspiratory crackles Gastrointestinal: normoactive bowel sounds Skin: other (2+ edema/ L leg in bandaging) Neurologic: AAOx3 Psychiatric: cooperative, interactive ICD10 Worksheet Patient Problems: Problems Problem Status Onset Atrial fibrillation Acute Peripheral edema Acute Skin tear of right upper arm without complication Acute Trimalleolar fracture of ankle, closed Acute UTI (urinary tract infection) Acute Cerebral infarction Active
[2018-06-14] MEDS: ATORVASTATIN CALCIUM 40 MG TAB PO SCH (21:12)
[2018-06-15] MEDS: FUROSEMIDE 100 MG in D5W 100 ML IV SCH ×3 (01:09→21:08)
[2018-06-15 05:29] LABS: INR 3.17 (0.83-1.16); PROTIME(PATIENT) 30.9 SEC (12.0-15.0)
[2018-06-15] MEDS: SODIUM CL NASAL 45 ML BTL EACHNARE SCH ×4 (05:31→21:59)
[2018-06-15] MEDS: DULoxetine 30 MG CAP PO SCH (08:16)
[2018-06-15] MEDS: CARVEDILOL 25 MG TAB PO SCH ×2 (08:16→18:13)
[2018-06-15] MEDS: ACETAMINOPHEN 325 MG TAB PO PRN ×3 (08:16→21:56)
--- NOTE | 2018-06-15 09:17 | SOAPPROG ---
SOAP Progress Note Assessment/Plan: Assessment: Left ankle trimalleolar fracture - secondary to fall on 05-31-18; closed reduced in ER on 05-31-18 s/p left ankle ORIF bimalleolar fracture -POD 7 Plan: Currently on coumadin, lasix gtt, amlodipine as directed by cardiology/hospital medicine Continue NWBing on left lower extremity Keep splint clean, dry and intact - reinforced with new Kerlix and MARTIN wraps Continue pain management Continue PT/OT efforts Continue D/C planning - she is agreeable to [facility] Hospital medicine following for multiple other medical issues - d/c when medically stable Respiratory therapy consult - patient will need to be discharged with O2 - DCHF Subjective: Patient states she is feeling better this morning, there is no pain in the left ankle. She feels less short of breath than yesterday. She still notes fatigue and swelling. She denies chest pain, fever, chills. She was seen by Cardiology yesterday for likely DCHF. She was started on Lasix gtt. She will continue Coumadin and amlodipine Objective: Vital Signs Temp Pulse Resp BP Pulse Ox 36.6 C 70 22 H 122/51 H 92 06/15/18 07:31 06/15/18 08:16 06/15/18 07:31 06/15/18 08:16 06/15/18 07:31 Laboratory Results 06/15/18 04:25 06/15/18 04:25 06/14/18 06/15/18 06/16/18 05:59 05:59 05:59 Intake Total 1550 730 Output Total 775 200 Balance 775 530 PT 30.9 SEC (12.0-15.0) H 06/15/18 04:25 INR 3.17 (0.83-1.16) H 06/15/18 04:25 Patient lying in bed, no acute distress. Oxygen mask in place. LLE: Posterior short leg splint is clean, dry and intact. She can actively move all toes. Intact to light touch distally. Capillary refill < 2-3 seconds in all toes. ICD10 Worksheet Patient Problems: Problems Problem Status Onset Atrial fibrillation Acute Peripheral edema Acute Skin tear of right upper arm without complication Acute Trimalleolar fracture of ankle, closed Acute UTI (urinary tract infection) Acute Cerebral infarction Active
[2018-06-15] MEDS: INSULIN LISPRO 100 UNIT/ML SC SCH ×3 (10:20→18:13)
[2018-06-15] MEDS: SENNOSIDES/DOCUSATE SODIUM TAB PO SCH ×2 (10:21→21:59)
[2018-06-15] MEDS: OXYMETAZOLINE 30 ML NASAL SPRAY EACHNARE SCH ×2 (11:53→21:58)
--- NOTE | 2018-06-15 14:09 | HOSPPROG ---
Hospitalist Progress Note Assessment/Plan: 67-year-old with multiple medical issues was found down at home after a fall in which she sustained an ankle fracture and was unable to move. She was eventually found by her daughter after several hours. She has had her ankle fracture treated and will eventually go to skilled rehab however she has not been medically stable because of renal failure and fluid overload. #Left trimalleolar fracture, status post ORIF on 06/[address] Rodriguez * PT/OT * SNF placement when stable medically # anasarca unclear if related to CHF, renal failure, pulmonary hypertension or more likely a combination of all of these. She has been difficult to diurese as some of the swelling has been going on for several months. Currently on Lasix gtt (started on 06/14), was on BID IV Lasix with weight gain * Appreciate renal, will discuss with them today minimal UO overnight despite Lasix gtt * reviewed cardiology consult, will f/u recommendations regarding Lasix gtt with minimal diuresis * Status post aortic valve replacement which appeared stable on her recent echocardiogram #atrial fibrillation, mech AVR and hx embolic CVA, needed anticoagulation up to surgery and no reversal * restarted coumadin and still on heparin bridge, appreciate pharm assistance * goal INR 2.5-3.5, INR 3.17 this AM * DC Heparin continue to monitor INR qd # Epistaxis, s/p rhino rocket and ENT consult status post removal. # Acute hypoxia respiratory failure, likely multifactorial due to atelectasis postop and high obesity hypoventilation syndrome. Continue to monitor will likely need oxygen at the time of discharge * Chest x-ray done on 06/12, likely CHF, will repeat CXR in the AM # acute on chronic renal failure, followed by Dr. 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 Outpatient management. #DM2: Resume Lantus and follow blood sugars. Continue SSI #Hyperkalemia: resolved after diuresis #Acute metabolic encephalopathy, resolved #H/o subdural hematoma in 2010 (non-operative management) #H/o infrarenal AAA: s/p stent graft repair. 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 She is not neutropenic here. #HTN: Coreg and amlodipine. #Anemia -slowly trending down but no indication of acute bleeding -no chronic anemia hx so watch closely PCP Dr Honorio LOPEZ the SNF once medically stable goals are to see improvement in creatinine and to decrease overall fluid status as she has anasarca now. Subjective: Pt reports some SOB this AM Objective: Vital Signs Temp Pulse Resp BP Pulse Ox 36.6 C 69 17 118/61 92 06/15/18 11:26 06/15/18 11:26 06/15/18 11:26 06/15/18 11:26 06/15/18 11:26 Laboratory Results 06/15/18 04:25 06/15/18 04:25 06/14/18 06/15/18 06/16/18 05:59 05:59 05:59 Intake Total 1550 730 Output Total 775 200 Balance 775 530 PT 30.9 SEC (12.0-15.0) H 06/15/18 04:25 INR 3.17 (0.83-1.16) H 06/15/18 04:25 - Physical Exam Constitutional: chronically ill appearing Eyes: PERRL Ears, Nose, Mouth, Throat: moist mucous membranes Cardiovascular: edema Respiratory: inspiratory crackles Gastrointestinal: soft, non-tender abdomen Skin: warm Musculoskeletal: generalized weakness Neurologic: AAOx3 Psychiatric: interacting appropriately ICD10 Worksheet Patient Problems: Problems Problem Status Onset Atrial fibrillation Acute Peripheral edema Acute Skin tear of right upper arm without complication Acute Trimalleolar fracture of ankle, closed Acute UTI (urinary tract infection) Acute Cerebral infarction Active
[2018-06-15] MEDS: INSULIN GLARGINE 100 UNITS/ML UNIT SC SCH (14:36)
--- NOTE | 2018-06-15 15:04 | SOAPPROG ---
SOAP Progress Note Assessment/Plan: Assessment: CONRAD on CKD4- baseline Cr ~2, suspected DM2/HTN related for CKD. Now with volume overload. Edema Fracture L ankle s/p ORIF DM2 Anemia CKD s/p mechanical AVR, anticoag Afib Hyponatremia- hypervolemic Hypoxia, cough Plan: Cr stable mid 2 region but remains quite volume overloaded. No real response with lasix gtt and IV albumin. Will add in metolazone. If not improving, we may have to consider dialysis soon but will need to talk to pt and family in more detail as not sure would be ideal candidate for [facility]-could consider trial of short term if pt willing. Would need to hold coumadin/bridge heparin if this is case for line. Continue po fluid restriction. I discussed with RN and Dr. Dickey Pager [phone] [facility] 06/15/18 15:04 Subjective: Sitting up with nursing. Not much UOP, they don't think she is incontinent as using bed ritchie ok. Still on 5L O2. She is more perky today but still edematous. Denies dizziness, n/v. Objective: Vital Signs Temp Pulse Resp BP Pulse Ox 36.6 C 69 17 118/61 92 06/15/18 11:26 06/15/18 11:26 06/15/18 11:26 06/15/18 11:26 06/15/18 11:26 Laboratory Results 06/15/18 04:25 06/15/18 04:25 06/14/18 06/15/18 06/16/18 05:59 05:59 05:59 Intake Total 1550 730 Output Total 775 200 Balance 775 530 PT 30.9 SEC (12.0-15.0) H 06/15/18 04:25 INR 3.17 (0.83-1.16) H 06/15/18 04:25 Physical Exam - Physical Exam General Appearance: alert, no apparent distress, other (on 5L O2 by NC) EENT: other (mmm) Respiratory: other (crackles bases bilat) Cardiac/Chest: regular rate, rhythm, other (no rub, +valve click) Abdomen: normal bowel sounds, non-tender, soft Extremities: other (+edema bilat LE) Neuro/Psych: alert, oriented x 3 ICD10 Worksheet Patient Problems: Problems Problem Status Onset Atrial fibrillation Acute Peripheral edema Acute Skin tear of right upper arm without complication Acute Trimalleolar fracture of ankle, closed Acute UTI (urinary tract infection) Acute Cerebral infarction Active
[2018-06-15] MEDS: METOLAZONE 5 MG TAB PO SCH (15:38)
[2018-06-15] MEDS: WARFARIN SODIUM 2.5 MG TAB PO SCH (15:38)
[2018-06-15] MEDS: ATORVASTATIN CALCIUM 40 MG TAB PO SCH (21:57)
[2018-06-16] MEDS: SODIUM CL NASAL 45 ML BTL EACHNARE SCH ×4 (05:26→21:27)
[2018-06-16] MEDS: FUROSEMIDE 100 MG in D5W 100 ML IV SCH ×3 (05:27→22:49)
[2018-06-16 06:12] LABS: INR 3.21 (0.83-1.16); PROTIME(PATIENT) 31.2 SEC (12.0-15.0)
[2018-06-16] MEDS: INSULIN LISPRO 100 UNIT/ML SC SCH ×3 (07:35→17:58)
[2018-06-16] MEDS: SENNOSIDES/DOCUSATE SODIUM TAB PO SCH ×2 (08:25→21:26)
[2018-06-16] MEDS: DULoxetine 30 MG CAP PO SCH (08:25)
[2018-06-16] MEDS: CARVEDILOL 25 MG TAB PO SCH ×2 (08:25→17:59)
[2018-06-16] MEDS: ACETAMINOPHEN 325 MG TAB PO PRN ×2 (08:26→13:13)
[2018-06-16] MEDS: METOLAZONE 5 MG TAB PO SCH (08:26)
[2018-06-16] MEDS: OXYMETAZOLINE 30 ML NASAL SPRAY EACHNARE SCH ×2 (08:37→21:27)
--- NOTE | 2018-06-16 10:15 | SOAPPROG ---
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 CONRAD on CKD IV -baseline Cr near 2, currently stable in mid-2's however oliguric -likely related to cardiorenal issues -if no improvement by tomorrow need to likely place dialysis catheter and start HD -unclear if patient will tolerate HD given co-morbidities and hypotension -monitor accurate UO, has some incontinence and would consider perez -will call daughter Cait to discuss this issue HTN/vol -still overloaded -keep MAP>65 -lasix gtt per cardiology, now on metolazone as well -hold amlodipine and continue CCB for now Hyponatremia -fluid restriction to 1.2L -low sodium diet -hypervolemic Anemia -Hb stable >9, no indication for EPO Acidosis -resolved, bicarb 24 -hold supplement Will continue to follow, please contact if ?'s. #[phone]. 06/16/18 11:19 Subjective: Patient still not diuresing well. This am long discussion regarding dialysis which she would want and has been aware per Dr. Silva that this was a possibility. Objective: Vital Signs Temp Pulse Resp BP Pulse Ox 36.6 C 64 21 H 121/60 H 89 L 06/16/18 07:24 06/16/18 08:25 06/16/18 07:24 06/16/18 08:25 06/16/18 07:24 Laboratory Results 06/15/18 04:25 06/16/18 05:00 06/15/18 06/16/18 06/17/18 05:59 05:59 05:59 Intake Total 730 881 Output Total 200 350 Balance 530 531 PT 31.2 SEC (12.0-15.0) H 06/16/18 05:00 INR 3.21 (0.83-1.16) H 06/16/18 05:00 Physical Exam - Physical Exam General Appearance: WD/WN, alert, mild distress, obese EENT: PERRL/EOMI Neck: non-tender, supple Respiratory: accessory muscle use, decreased breath sounds, crackles Cardiac/Chest: edema, irregularly irregular Abdomen: normal bowel sounds, non-tender, soft Skin: pallor Extremities: pedal edema, other (cast on ankle) Neuro/Psych: no motor/sensory deficits, alert, depressed affect ICD10 Worksheet Patient Problems: Problems Problem Status Onset Atrial fibrillation Acute Peripheral edema Acute Skin tear of right upper arm without complication Acute Trimalleolar fracture of ankle, closed Acute UTI (urinary tract infection) Acute Cerebral infarction Active
--- NOTE | 2018-06-16 10:20 | SOAPPROG ---
SOAP Progress Note Assessment/Plan: Assessment: Left ankle trimalleolar fracture - secondary to fall on 05-31-18; closed reduced in ER on 05-31-18 s/p left ankle ORIF bimalleolar fracture - POD 8 - Dr. Rodriguez Plan: Currently on coumadin, lasix gtt; amlodipine has been held; as directed by cardiology/hospital medicine Continue NWBing on left lower extremity Keep splint clean, dry and intact Continue pain management Continue PT/OT efforts Continue D/C planning - she is agreeable to [facility] Hospital medicine following for multiple other medical issues - d/c when medically stable Respiratory therapy consult - patient will need to be discharged with O2 - DCHF Subjective: Patient states she feels better today, she feels less short of breath at this time. Reports no pain in the left ankle. No other complaints. Objective: Vital Signs Temp Pulse Resp BP Pulse Ox 36.6 C 64 21 H 121/60 H 89 L 06/16/18 07:24 06/16/18 08:25 06/16/18 07:24 06/16/18 08:25 06/16/18 07:24 Laboratory Results 06/15/18 04:25 06/16/18 05:00 06/15/18 06/16/18 06/17/18 05:59 05:59 05:59 Intake Total 730 881 Output Total 200 350 Balance 530 531 PT 31.2 SEC (12.0-15.0) H 06/16/18 05:00 INR 3.21 (0.83-1.16) H 06/16/18 05:00 Patient sitting in her chair, eating breakfast. She appears more clear today. She is wearing a nasal cannula. No acute distress. LLE: Posterior short leg splint is clean, dry and intact. Mild edema distally into the left foot. She can actively move all toes. Grossly NVI distally. ICD10 Worksheet Patient Problems: Problems Problem Status Onset Atrial fibrillation Acute Peripheral edema Acute Skin tear of right upper arm without complication Acute Trimalleolar fracture of ankle, closed Acute UTI (urinary tract infection) Acute Cerebral infarction Active
[2018-06-16] MEDS: INSULIN GLARGINE 100 UNITS/ML UNIT SC SCH (13:08)
--- NOTE | 2018-06-16 14:41 | HOSPPROG ---
Hospitalist Progress Note Assessment/Plan: 67-year-old with multiple medical issues was found down at home after a fall in which she sustained an ankle fracture and was unable to move. She was eventually found by her daughter after several hours. She has had her ankle fracture treated and will eventually go to skilled rehab however she has not been medically stable because of renal failure and fluid overload. #Left trimalleolar fracture, status post ORIF on 06/[address] Rodriguez * PT/OT * SNF placement when stable medically # anasarca unclear if related to CHF, renal failure, pulmonary hypertension or more likely a combination of all of these. She has been difficult to diurese as some of the swelling has been going on for several months. Currently on Lasix gtt (started on 06/14), was on BID IV Lasix with weight gain * Appreciate renal, added Metolazone yesterday with UP 350 over past 24 hours, they recommend placement of HD catheter and initiation of HD tomorrow if no improvement * reviewed cardiology consult, will f/u recommendations regarding Lasix gtt with minimal diuresis * Status post aortic valve replacement which appeared stable on her recent echocardiogram #atrial fibrillation, mech AVR and hx embolic CVA, needed anticoagulation up to surgery and no reversal * restarted coumadin and still on heparin bridge, appreciate pharm assistance * goal INR 2.5-3.5, INR 3.2 this AM * DC Heparin continue to monitor INR qd # Epistaxis, s/p rhino rocket and ENT consult status post removal. # Acute hypoxia respiratory failure, likely multifactorial due to atelectasis postop and high obesity hypoventilation syndrome. Continue to monitor will likely need oxygen at the time of discharge * Chest x-ray done on 06/12, likely CHF # acute on chronic renal failure, followed by Dr. 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 Outpatient management. #DM2: Resume Lantus and follow blood sugars. Continue SSI #Hyperkalemia: resolved after diuresis #Acute metabolic encephalopathy, resolved #H/o subdural hematoma in 2010 (non-operative management) #H/o infrarenal AAA: s/p stent graft repair. 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 She is not neutropenic here. #HTN: Coreg and amlodipine. #Anemia -slowly trending down but no indication of acute bleeding -no chronic anemia hx so watch closely PCP Dr Honorio LOPEZ the SNF once medically stable goals are to see improvement in creatinine and to decrease overall fluid status as she has anasarca now. Subjective: Pt reports no complaints this AM Objective: Vital Signs Temp Pulse Resp BP Pulse Ox 36.3 C 64 18 128/47 H 94 06/16/18 11:30 06/16/18 11:30 06/16/18 11:30 06/16/18 11:30 06/16/18 11:30 Laboratory Results 06/15/18 04:25 06/16/18 05:00 06/15/18 06/16/18 06/17/18 05:59 05:59 05:59 Intake Total 730 881 Output Total 200 350 Balance 530 531 PT 31.2 SEC (12.0-15.0) H 06/16/18 05:00 INR 3.21 (0.83-1.16) H 06/16/18 05:00 - Physical Exam Constitutional: chronically ill appearing Eyes: PERRL Ears, Nose, Mouth, Throat: moist mucous membranes Cardiovascular: regular rate and rhythym, edema Respiratory: reduced air movement Gastrointestinal: soft, non-tender abdomen Skin: warm Musculoskeletal: generalized weakness Neurologic: AAOx3 Psychiatric: interacting appropriately ICD10 Worksheet Patient Problems: Problems Problem Status Onset Atrial fibrillation Acute Peripheral edema Acute Skin tear of right upper arm without complication Acute Trimalleolar fracture of ankle, closed Acute UTI (urinary tract infection) Acute Cerebral infarction Active
[2018-06-16] MEDS: WARFARIN SODIUM 2.5 MG TAB PO SCH (16:29)
[2018-06-16] MEDS: ATORVASTATIN CALCIUM 40 MG TAB PO SCH (21:26)
[2018-06-17] MEDS: SODIUM CL NASAL 45 ML BTL EACHNARE SCH ×3 (06:28→17:25)
[2018-06-17] MEDS: FUROSEMIDE 100 MG in D5W 100 ML IV SCH ×2 (08:44→20:13)
[2018-06-17] MEDS: INSULIN LISPRO 100 UNIT/ML SC SCH ×3 (08:47→18:07)
--- NOTE | 2018-06-17 08:51 | SOAPPROG ---
SOAP Progress Note Assessment/Plan: Assessment: Left ankle trimalleolar fracture - secondary to fall on 05-31-18; closed reduced in ER on 05-31-18 s/p left ankle ORIF bimalleolar fracture - POD 9 - Dr. Rodriguez Plan: Currently on coumadin, lasix gtt, IV Lasix BID; amlodipine has been held; nephrology added metolazone 2 days ago; followed by nephrology, cardiology, hospital medicine. Nephrology recommending placement of HD catheter and possible HD if diuresis ineffective Continue NWBing on left lower extremity Keep splint clean, dry and intact Continue pain management Continue PT/OT efforts Continue D/C planning - she is agreeable to [facility] medicine following for multiple other medical issues - d/c when medically stable Respiratory therapy consult - patient will need to be discharged with O2 - DCHF Subjective: Patient states there is no pain in the left ankle. Her main complaints are coughing and feeling short of breath. Patient continues to have anasarca. Nephrology considering HD. Objective: Vital Signs Temp Pulse Resp BP Pulse Ox 36.8 C 71 17 132/66 H 93 06/17/18 07:34 06/17/18 07:34 06/17/18 07:34 06/17/18 07:34 06/17/18 07:34 Laboratory Results 06/15/18 04:25 06/17/18 04:39 06/16/18 06/17/18 06/18/18 05:59 05:59 05:59 Intake Total 881 1200 Output Total 350 100 Balance 531 1100 PT 31.2 SEC (12.0-15.0) H 06/16/18 05:00 INR 3.21 (0.83-1.16) H 06/16/18 05:00 Patient resting comfortably in bed, nasal cannula in place. She occasionally coughs. No acute distress. LLE: Posterior short leg splint is clean, dry and intact. Visible skin intact. Mild peripheral edema into the left foot. She can actively move all toes. Grossly NVI distally. ICD10 Worksheet Patient Problems: Problems Problem Status Onset Atrial fibrillation Acute Peripheral edema Acute Skin tear of right upper arm without complication Acute Trimalleolar fracture of ankle, closed Acute UTI (urinary tract infection) Acute Cerebral infarction Active
[2018-06-17] MEDS: METOLAZONE 5 MG TAB PO SCH (08:57)
[2018-06-17] MEDS: DULoxetine 30 MG CAP PO SCH (08:57)
[2018-06-17] MEDS: CARVEDILOL 25 MG TAB PO SCH ×2 (08:57→17:22)
[2018-06-17] MEDS: SENNOSIDES/DOCUSATE SODIUM TAB PO SCH ×2 (08:57→22:29)
[2018-06-17] MEDS: OXYMETAZOLINE 30 ML NASAL SPRAY EACHNARE SCH ×2 (08:58→22:33)
--- NOTE | 2018-06-17 10:48 | ASMTCMCOM ---
CM Note CM Note Notes: Note for today, 06/17/18 Pts case discused w/ Dr. Dickey. Pt will start HD temporarily. Pt is not medically stable to d/c at this time. Update sent to [facility]. CM to follow. Plan: [facility] Note completed on 06/15/18 Pts case discussed w/ Dr. Dickey. Pt will most likely be a couple more days inpatient until d/c to [facility]. Pt is still on a lasix drip and not producing any urine. CM sent updates to [facility]. CM to follow. Plan: [facility] Date Signed: 06/15/2018 11:53 AM Electronically Signed By:LETTY Espinoza
[2018-06-17] MEDS: INSULIN GLARGINE 100 UNITS/ML UNIT SC SCH (12:00)
--- NOTE | 2018-06-17 12:14 | SOAPPROG ---
SOAP Progress Note Assessment/Plan: Assessment/Plan: CONRAD on CKD 4: baseline Cr close to 2, currently 2.3, but oliguric and not responding to diuretics in setting of marked volume overload. - Dialysis has been discussed with pt and she is willing to undergo it if necessary. - Will have dialysis catheter placed today and will assess daily for HD needs. - Pt is on Lasix ggt and metolazone with not much improvement, will adjust diuretics as below and assess for better response prior to initiating dialysis. - Avoid hypotension and nephrotoxins. Hypervolemia: pt remains markedly volume overloaded and not responding to diuretics. - Will continue Lasix ggt. - Will give a higher dose of metolazone as well as a dose of spironolactone this afternoon. - Considering HD as above. Hyponatremia: Na stable, working on diuresis as above, pt also on fluid restriction. HTN: BP ok on current meds, will continue to monitor. Subjective: No acute events overnight. Pt feels her breathing is the same. She still has not had much UOP. Objective: Vital Signs Temp Pulse Resp BP Pulse Ox 36.6 C 70 20 128/61 H 90 L 06/17/18 11:40 06/17/18 11:40 06/17/18 11:40 06/17/18 11:40 06/17/18 11:40 Laboratory Results 06/15/18 04:25 06/17/18 04:39 06/16/18 06/17/18 06/18/18 05:59 05:59 05:59 Intake Total 881 1200 Output Total 350 100 100 Balance 531 1100 -100 PT 31.2 SEC (12.0-15.0) H 06/16/18 05:00 INR 3.21 (0.83-1.16) H 06/16/18 05:00 General: alert and oriented, no acute distress Eyes: EOMI, PERRL OP: Clear CV: RRR Resp: slightly labored respirations on NC Abd: Soft, NT Ext: +3 edema BLE Neuro: CN II-XII Grossly intact, no asterixis Psych: cooperative ICD10 Worksheet Patient Problems: Problems Problem Status Onset Atrial fibrillation Acute Peripheral edema Acute Skin tear of right upper arm without complication Acute Trimalleolar fracture of ankle, closed Acute UTI (urinary tract infection) Acute Cerebral infarction Active
[2018-06-17] MEDS ORDERED: PHYTONADIONE 2.5 MG/2.5 ML ORAL UDL PO ONE (12:43)
[2018-06-17] MEDS: ACETAMINOPHEN 325 MG TAB PO PRN ×2 (13:37→22:28)
[2018-06-17] MEDS ORDERED: METOLAZONE 5 MG TAB PO ONE (15:00)
[2018-06-17] MEDS ORDERED: SPIRONOLACTONE 50 MG TAB PO ONE (15:00)
[2018-06-17 15:04] LABS: HEPATITIS B CORE AB IGM NEGATIVE (NEGATIVE); HEPATITIS B SURFACE ANTIGEN NEGATIVE (NEGATIVE)
--- NOTE | 2018-06-17 15:05 | HOSPPROG ---
Hospitalist Progress Note Assessment/Plan: 67-year-old with multiple medical issues was found down at home after a fall in which she sustained an ankle fracture and was unable to move. She was eventually found by her daughter after several hours. She has had her ankle fracture treated and will eventually go to skilled rehab however she has not been medically stable because of renal failure and fluid overload. #Left trimalleolar fracture, status post ORIF on 06/[address] Rodriguez * PT/OT * SNF placement when stable medically # Acute on Chronic Renal Failure, she has been difficult to diurese as some of the swelling has been going on for several months. Currently on Lasix gtt ( started on 06/14), was on BID IV Lasix with weight gain * Appreciate renal, added Metolazone yesterday with UP 350 over past 24 hours, they recommend placement of HD catheter today and will give a higher dose of metolazone as well as dose of spironolactone this afternoon * Possible initiation of HD tomorrow if no improvement per nephrology #atrial fibrillation, mech AVR and hx embolic CVA, needed anticoagulation up to surgery and no reversal * restarted coumadin and still on heparin bridge, appreciate pharm assistance * goal INR 2.5-3.5, INR 3.2 * DC Heparin continue to monitor INR qd * Will give 1 time dose of Vit K this AM for cathter placement # Epistaxis, s/p rhino rocket and ENT consult status post removal. # Acute hypoxia respiratory failure, likely multifactorial due to atelectasis postop and high obesity hypoventilation syndrome. 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 Outpatient management. #DM2: Resume Lantus and follow blood sugars. Continue SSI #Hyperkalemia: resolved after diuresis #Acute metabolic encephalopathy, resolved #H/o subdural hematoma in 2010 (non-operative management) #H/o infrarenal AAA: s/p stent graft repair. 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 She is not neutropenic here. #HTN: Coreg and amlodipine. #Anemia -slowly trending down but no indication of acute bleeding -no chronic anemia hx so watch closely DC the SNF once medically stable goals are to see improvement in creatinine and to decrease overall fluid status as she has anasarca now. Subjective: Pt reports no complaints this AM Objective: Vital Signs Temp Pulse Resp BP Pulse Ox 36.6 C 70 20 128/61 H 90 L 06/17/18 11:40 06/17/18 11:40 06/17/18 11:40 06/17/18 11:40 06/17/18 11:40 Laboratory Results 06/15/18 04:25 06/17/18 04:39 06/16/18 06/17/18 06/18/18 05:59 05:59 05:59 Intake Total 881 1200 Output Total 350 100 500 Balance 531 1100 -500 PT 31.2 SEC (12.0-15.0) H 06/16/18 05:00 INR 3.21 (0.83-1.16) H 06/16/18 05:00 - Physical Exam Constitutional: chronically ill appearing Eyes: PERRL Ears, Nose, Mouth, Throat: moist mucous membranes Cardiovascular: regular rate and rhythym, edema Respiratory: reduced air movement Gastrointestinal: soft, non-tender abdomen Skin: warm Musculoskeletal: generalized weakness Neurologic: AAOx3 Psychiatric: interacting appropriately ICD10 Worksheet Patient Problems: Problems Problem Status Onset Atrial fibrillation Acute Peripheral edema Acute Skin tear of right upper arm without complication Acute Trimalleolar fracture of ankle, closed Acute UTI (urinary tract infection) Acute Cerebral infarction Active
[2018-06-17 15:29] LABS: HEPATITIS B CORE AB TOTAL NEGATIVE (NEGATIVE)
[2018-06-17] MEDS ORDERED: WARFARIN SODIUM 5 MG TAB PO ONE (17:00)
[2018-06-17] MEDS: ATORVASTATIN CALCIUM 40 MG TAB PO SCH (22:29)
[2018-06-18] MEDS: SODIUM CL NASAL 45 ML BTL EACHNARE SCH ×5 (02:13→21:48)
[2018-06-18] MEDS: ACETAMINOPHEN 325 MG TAB PO PRN ×3 (03:56→21:47)
[2018-06-18 04:53] LABS: INR 2.45 (0.83-1.16); PROTIME(PATIENT) 25.4 SEC (12.0-15.0)
[2018-06-18] MEDS: FUROSEMIDE 100 MG in D5W 100 ML IV SCH ×2 (05:55→16:25)
[2018-06-18] MEDS: SENNOSIDES/DOCUSATE SODIUM TAB PO SCH ×2 (07:11→21:48)
[2018-06-18] MEDS: INSULIN LISPRO 100 UNIT/ML SC SCH ×3 (09:15→17:08)
[2018-06-18] MEDS: DULoxetine 30 MG CAP PO SCH (09:16)
[2018-06-18] MEDS: CARVEDILOL 25 MG TAB PO SCH ×2 (09:16→17:09)
[2018-06-18] MEDS: METOLAZONE 5 MG TAB PO SCH (09:16)
[2018-06-18] MEDS: OXYMETAZOLINE 30 ML NASAL SPRAY EACHNARE SCH ×2 (09:17→21:49)
[2018-06-18 09:27] LABS: INR 2.37 (0.83-1.16); PROTIME(PATIENT) 24.7 SEC (12.0-15.0)
--- NOTE | 2018-06-18 10:28 | SOAPPROG ---
SOAP Progress Note Assessment/Plan: Assessment: CONRAD on CKD 4: baseline Cr close to 2, she has been refractory to diuretics in setting of marked volume overload. - Non-tunneled HD line placed 06/17, will assess daily for HD needs. - Pt is on Lasix ggt and metolazone - Overnight had some improvement in UOP, wt down today, and Cr down 2.3 to 2.1 - Therefore will hold on HD for now, continue medical management and assess daily - Avoid hypotension and nephrotoxins. Hypervolemia: pt remains markedly volume overloaded - Will continue Lasix ggt. - Increased dose of metolazone and gave spironolactone 06/17, seemed to help so will schedule aldactone, may also mitigate potential for hypokalemia - Considering HD as above. Hyponatremia: Na improving, working on diuresis as above, pt also on fluid restriction. HTN: BP ok on current meds, will continue to monitor. Plan: 06/18/18 10:26 06/18/18 10:28 Subjective: Notes an increase in UOP, feels the edema is improving Objective: Vital Signs Temp Pulse Resp BP Pulse Ox 36.7 C 66 17 116/70 91 L 06/18/18 07:37 06/18/18 09:16 06/18/18 07:37 06/18/18 09:16 06/18/18 07:37 Laboratory Results 06/15/18 04:25 06/18/18 04:32 06/17/18 06/18/18 06/19/18 05:59 05:59 05:59 Intake Total 1200 110 Output Total 100 1000 Balance 1100 -890 PT 24.7 SEC (12.0-15.0) H 06/18/18 09:00 INR 2.37 (0.83-1.16) H 06/18/18 09:00 Physical Exam - Physical Exam General Appearance: WD/WN Neck: other (R IJ stefan) Respiratory: decreased breath sounds Cardiac/Chest: regular rate, rhythm Abdomen: soft Extremities: swelling ICD10 Worksheet Patient Problems: Problems Problem Status Onset Atrial fibrillation Acute Peripheral edema Acute Skin tear of right upper arm without complication Acute Trimalleolar fracture of ankle, closed Acute UTI (urinary tract infection) Acute Cerebral infarction Active
[2018-06-18] MEDS: SPIRONOLACTONE 50 MG TAB PO SCH (11:07)
[2018-06-18] MEDS ORDERED: PANTOPRAZOLE SODIUM 40 MG VIAL IVP SCH (12:00)
--- NOTE | 2018-06-18 12:16 | HOSPPROG ---
Hospitalist Progress Note Assessment/Plan: 67-year-old with multiple medical issues was found down at home after a fall in which she sustained an ankle fracture and was unable to move. She was eventually found by her daughter after several hours. She has had her ankle fracture treated and will eventually go to skilled rehab however she has not been medically stable because of renal failure and fluid overload. #Left trimalleolar fracture, status post ORIF on 06/[address] Rodriguez * PT/OT * SNF placement when stable medically # Acute on Chronic Renal Failure, she has been difficult to diurese as some of the swelling has been going on for several months. Currently on Lasix gtt ( started on 06/14), was on BID IV Lasix with weight gain * Appreciate renal, added Metolazone on 06/16 with increased dose and addition of Spironolactone on 06/17 with improving Urine output of 1000 ml over past 24 hours , * S/p HD catheter placement on 06/17 * Nephrology to assess daily for initiation of dialyis #atrial fibrillation, mech AVR and hx embolic CVA, needed anticoagulation up to surgery and no reversal * Coumadin restarted after heparin bridge * INR 2.4 this AM, goal INR 2.5-3.5 previously * S/p 5 mg Vit K on 06/17 prior to HD catheter placement per IR recommendations * Discussed with cardiology who recommended holding coumadin for now with no bridge given bleed as below * Continue to monitor INR # Possible UGIB - H/H trending down slowly during admission, H/H pending for this morning - Had episode of melena this morning, Occult stool positive for blood - Discussed with GI, Dr. Hardy, who recommends starting IV PPI q6 hours, will evaluate for EGD need, however concerned given 02 requirement and ongoing need for AC, will make NPO after midnight for possible EGD in the AM - Continue to monitor H/H #Epistaxis, s/p rhino rocket and ENT consult status post removal. # Acute hypoxia respiratory failure, likely multifactorial due to atelectasis postop, pulmonary edema, and high obesity hypoventilation syndrome. 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 Outpatient management. #DM2: Resume Lantus and follow blood sugars. Continue SSI #Hyperkalemia: resolved after diuresis #Acute metabolic encephalopathy, resolved #H/o subdural hematoma in 2010 (non-operative management) #H/o infrarenal AAA: s/p stent graft repair. 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 She is not neutropenic here. #HTN: Coreg and amlodipine. Dispo: Plan for discharge to SNF pending clinical course Subjective: Patient reports no pain from HD catheter site this AM Objective: Vital Signs Temp Pulse Resp BP Pulse Ox 36.7 C 66 17 116/70 91 L 06/18/18 07:37 06/18/18 09:16 06/18/18 07:37 06/18/18 09:16 06/18/18 07:37 Laboratory Results 06/15/18 04:25 06/18/18 04:32 06/17/18 06/18/18 06/19/18 05:59 05:59 05:59 Intake Total 1200 110 Output Total 100 1000 Balance 1100 -890 PT 24.7 SEC (12.0-15.0) H 06/18/18 09:00 INR 2.37 (0.83-1.16) H 06/18/18 09:00 - Physical Exam Constitutional: chronically ill appearing Eyes: PERRL Ears, Nose, Mouth, Throat: moist mucous membranes Cardiovascular: edema Respiratory: reduced air movement Gastrointestinal: soft, non-tender abdomen Skin: warm Musculoskeletal: generalized weakness Neurologic: AAOx3 Psychiatric: interacting appropriately ICD10 Worksheet Patient Problems: Problems Problem Status Onset Atrial fibrillation Acute Peripheral edema Acute Skin tear of right upper arm without complication Acute Trimalleolar fracture of ankle, closed Acute UTI (urinary tract infection) Acute Cerebral infarction Active
--- NOTE | 2018-06-18 13:32 | PDCARPN ---
Cardiology Progress Note Chief Complaint: GIB in setting of mechanical AVR Assessment/Plan: Assessment: Reviewed with Dr. Ventura. OK to hold Warfarin and reverse for short term in setting of possible GIB. Start hold today. Resume within 1-2 weeks. Can have lower INR goal 2-3 at time of resumption of Warfarin. 06/18/18 13:31 Objective: Vital Signs (8 Hrs) Temp Pulse Resp BP Pulse Ox 06/18/18 12:00 98.1 F 66 17 129/57 H 92 06/18/18 09:16 66 116/70 06/18/18 07:37 98.0 F 70 17 116/70 91 L Intake/Output (24 Hrs) 06/17/18 06/18/18 06/19/18 05:59 05:59 05:59 Intake Total 1200 110 Output Total 100 1000 Balance 1100 -890 Intake: Oral (ml) 1200 IV Infused (ml) 110 Furosemide 100 mg In D5w 110 100 ml @ 10 MG/HR 11 mls/ hr IV CONT DANG Rx#: [id number] Output: Urine (ml) 100 1000 Bedpan 100 900 Bedside Commode 100 Other: Weight 123.3 kg 119.93 kg Intake Quantity Yes Sufficient Number of Voids Bedpan 3 1 Bedside Commode 1 Number of Stools Bedpan 1 Incontinence 1 Result Diagrams: 06/15/18 04:25 06/18/18 04:32 ICD10 Worksheet Patient Problems: Problems Problem Status Onset Atrial fibrillation Acute Peripheral edema Acute Skin tear of right upper arm without complication Acute Trimalleolar fracture of ankle, closed Acute UTI (urinary tract infection) Acute Cerebral infarction Active
[2018-06-18] MEDS: INSULIN GLARGINE 100 UNITS/ML UNIT SC SCH (13:49)
[2018-06-18] MEDS: PANTOPRAZOLE SODIUM 40 MG VIAL IVP SCH ×2 (13:51→17:11)
[2018-06-18] MEDS: ATORVASTATIN CALCIUM 40 MG TAB PO SCH (21:47)
[2018-06-19] MEDS: PANTOPRAZOLE SODIUM 40 MG VIAL IVP SCH ×4 (00:01→17:28)
[2018-06-19] MEDS: FUROSEMIDE 100 MG in D5W 100 ML IV SCH ×3 (02:03→21:20)
[2018-06-19 05:26] LABS: INR 2.19 (0.83-1.16); PROTIME(PATIENT) 23.3 SEC (12.0-15.0)
[2018-06-19] MEDS: SODIUM CL NASAL 45 ML BTL EACHNARE SCH ×4 (05:55→21:24)
[2018-06-19] MEDS: ACETAMINOPHEN 325 MG TAB PO PRN ×2 (06:03→18:10)
[2018-06-19] MEDS: CARVEDILOL 25 MG TAB PO SCH ×2 (08:10→17:32)
[2018-06-19] MEDS: DULoxetine 30 MG CAP PO SCH (08:10)
[2018-06-19] MEDS: METOLAZONE 5 MG TAB PO SCH (08:11)
[2018-06-19] MEDS: SPIRONOLACTONE 50 MG TAB PO SCH ×2 (08:11→16:41)
[2018-06-19] MEDS: INSULIN LISPRO 100 UNIT/ML SC SCH ×3 (08:14→17:30)
[2018-06-19] MEDS: OXYMETAZOLINE 30 ML NASAL SPRAY EACHNARE SCH (08:14)
[2018-06-19] MEDS: SENNOSIDES/DOCUSATE SODIUM TAB PO SCH ×2 (08:14→21:23)
--- NOTE | 2018-06-19 10:12 | HOSPPROG ---
Hospitalist Progress Note Assessment/Plan: 67-year-old with multiple medical issues was found down at home after a fall in which she sustained an ankle fracture and was unable to move. She was eventually found by her daughter after several hours. She has had her ankle fracture treated and will eventually go to skilled rehab however she has not been medically stable because of renal failure and fluid overload. #Left trimalleolar fracture, status post ORIF on 06/[address] Rodriguez * PT/OT * SNF placement when stable medically # Acute on Chronic Renal Failure, she has been difficult to diurese as some of the swelling has been going on for several months. Currently on Lasix gtt ( started on 06/14), was on BID IV Lasix with weight gain * Appreciate renal consultation, added Metolazone on 06/16 with increased dose and addition of Spironolactone on 06/17 with improving Urine output, was 1000 ml , overpast 24 hours ~500 ml, 250 ml this AM * S/p HD catheter placement on 06/17 * Nephrology to assess daily for initiation of dialyis, f/u their recommendations #atrial fibrillation, mech AVR and hx embolic CVA, needed anticoagulation up to surgery and no reversal * Coumadin restarted after heparin bridge * INR 2.19 this AM, goal INR 2.5-3.5 previously * S/p 5 mg Vit K on 06/17 prior to HD catheter placement per IR recommendations * Discussed with cardiology on 06/17 who recommended holding coumadin for now with no bridge given bleed as below * Continue to monitor INR daily # Possible UGIB - H/H trending down slowly during admission, Hgb 8.7 this AM, 9.4 on 06/15 - Had episode of melena on 06/18, Occult stool positive for blood - Discussed with GI, Dr. Hardy, who recommended starting IV PPI q6 hours, will see patient today, f/u recs, currently NPO for possible EGD , however concerned given 02 requirement and ongoing need for AC - Continue to monitor H/H #Epistaxis, s/p rhino rocket and ENT consult status post removal. # Acute hypoxia respiratory failure, likely multifactorial due to atelectasis postop, pulmonary edema, and high obesity hypoventilation syndrome. Stable on 5L NC. 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 Outpatient management. #DM2: Continue Lantus and follow blood sugars. Continue SSI #Hyperkalemia: resolved #Acute metabolic encephalopathy, resolved #H/o subdural hematoma in 2010 (non-operative management) #H/o infrarenal AAA: s/p stent graft repair. 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 She is not neutropenic here. #HTN: Coreg and amlodipine. Dispo: Plan for discharge to SNF pending clinical course Subjective: Pt reports no complaints this AM Objective: Vital Signs Temp Pulse Resp BP Pulse Ox 36.6 C 61 16 118/63 92 06/19/18 04:00 06/19/18 08:10 06/19/18 07:17 06/19/18 08:10 06/19/18 07:17 Laboratory Results 06/19/18 04:27 06/19/18 04:27 06/18/18 06/19/18 06/20/18 05:59 05:59 05:59 Intake Total 110 1332 Output Total 1000 500 200 Balance -890 832 -200 PT 23.3 SEC (12.0-15.0) H 06/19/18 04:27 INR 2.19 (0.83-1.16) H 06/19/18 04:27 - Physical Exam Constitutional: chronically ill appearing Eyes: PERRL Ears, Nose, Mouth, Throat: moist mucous membranes Cardiovascular: irregularly irregular, edema Respiratory: no respiratory distress, reduced air movement, inspiratory crackles Gastrointestinal: soft, non-tender abdomen, distension, No guarding, No rebound Skin: warm Musculoskeletal: pain with ROM, generalized weakness Neurologic: AAOx3 Psychiatric: interacting appropriately ICD10 Worksheet Patient Problems: Problems Problem Status Onset Atrial fibrillation Acute Peripheral edema Acute Skin tear of right upper arm without complication Acute Trimalleolar fracture of ankle, closed Acute UTI (urinary tract infection) Acute Cerebral infarction Active
[2018-06-19] MEDS: INSULIN GLARGINE 100 UNITS/ML UNIT SC SCH (11:05)
--- NOTE | 2018-06-19 11:48 | SOAPPROG ---
SOAP Progress Note Assessment/Plan: Assessment/Plan: CONRAD on CKD 4: baseline Cr close to 2, currently 2.1, but with marked volume overload. - Dialysis has been discussed with pt and she is willing to undergo it if necessary. - She is having more response to diuretics, will adjust as below. - Pt has dialysis catheter in place, will assess daily for HD needs if she is unable to diurese. - Avoid hypotension and nephrotoxins. Hypervolemia: pt remains markedly volume overloaded, now starting to respond more to diuretics. - Will continue Lasix ggt and metolazone. - Will increase spironolactone. - Considering HD as above. Hyponatremia: Na stable, working on diuresis as above, also recommend 1L fluid restriction. HTN: BP ok on current meds, will continue to monitor. Subjective: Pt had concern for melanotic stool yesterday, now NPO. Pt states that her breathing feels the same, notes having more UOP. Objective: Vital Signs Temp Pulse Resp BP Pulse Ox 36.3 C 62 20 125/66 H 93 06/19/18 11:26 06/19/18 11:26 06/19/18 11:26 06/19/18 11:26 06/19/18 11:26 Laboratory Results 06/19/18 04:27 06/19/18 04:27 06/18/18 06/19/18 06/20/18 05:59 05:59 05:59 Intake Total 110 1332 Output Total 1000 500 201 Balance -890 832 -201 PT 23.3 SEC (12.0-15.0) H 06/19/18 04:27 INR 2.19 (0.83-1.16) H 06/19/18 04:27 General: alert and oriented, no acute distress Eyes: EOMI, PERRL OP: Clear CV: RRR Resp: nonlabored respirations on NC Abd: Soft, NT Ext: +3 edema BLE Neuro: CN II-XII grossly intact, no asterixis Psych: cooperative, appropriate mood and affect ICD10 Worksheet Patient Problems: Problems Problem Status Onset Atrial fibrillation Acute Peripheral edema Acute Skin tear of right upper arm without complication Acute Trimalleolar fracture of ankle, closed Acute UTI (urinary tract infection) Acute Cerebral infarction Active
--- NOTE | 2018-06-19 14:54 | GCON ---
[f rep st] CONSULTATION DATE OF CONSULTATION: 06/19/2018 REQUESTED BY: Dr. Lawrence Dickey for melena, anemia. Dear Dr. Dickey: Thank you very kindly for asking me to evaluate the patient in consultation for a single episode of m guy that occurred yesterday. She is anticoagulated for a history of aortic stenosis with a mechani svetlana aortic valve replacement in 2007 and was admitted for a new left lower leg fracture that was repa ired. She has had an INR that was as high as 3.4 on June 14, but now her Coumadin has been held and her INR is improved down to 2.1. Her hematocrit, while low at a baseline of near 36, has fallen to 3 0.7 and today is 27.5. She only had the 1 dark bowel movement that was Hemoccult positive. She is a lso unfortunately in renal failure and has had a dialysis catheter placed for the possibility of dial ysis. Her hematocrit seems pretty stable over the last 8 days with a hematocrit of 28.4 on June 11 a nd 27.5 this morning. The patient denies any abdominal pain. She says she has not had a bowel movement since yesterday, al though nursing in and out vital reports a liquid stool at the bedside commode at 5 a.m. of 100 mL. S he is making some urine at about 400 mL per shift and made about a liter of urine yesterday. Her nahed ght has improved with a body weight of 119 kg, improved from 123 kg on June 16. She does have chroni c heartburn and does say there are some occasional problems with intermittent solid food dysphagia. She denies any nausea, vomiting, or hematemesis. She does not recall [facility]. I am asked to assist with further evaluation and management predominantly of the new onset irene na and her anemia in the setting of anticoagulation. PAST MEDICAL HISTORY: Atrial fibrillation. She has had an aortic aneurysm with an endo graft placem ent, rheumatoid arthritis, history of subdural hematoma and embolic stroke, depression, history of ty pe 2 diabetes mellitus, hypertension, dyslipidemia, chronic kidney disease. PAST SURGICAL HISTORY: Aortic valve replacement, splenectomy, cholecystectomy. FAMILY HISTORY: Significant for coronary disease. No history of bleeding disorders, peptic ulcer di sease. SOCIAL HISTORY: Former tobacco user, not current. No alcohol. Lives independently. MEDICATIONS: Currently include Tylenol, Lipitor, Dulcolax, calcitriol, Coreg, Cymbalta, furosemide d rip, Humalog, lactulose, milk of magnesia, metolazone, Zofran, Protonix 40 mg IV q.6 which was starte d yesterday, MiraLAX, Senokot, Aldactone, warfarin. ALLERGIES: None known. REVIEW OF SYSTEMS: CONSTITUTIONAL: She denies fever. She says her appetite is poor. She denies an y night sweats or weight loss at home. HEENT: Denies epistaxis or sore throat. She says her neck b others her where the Dane catheter was placed, but only mildly so. This is in the right neck. De nies any difficulty with throat pain or tongue discomfort. She does say it is difficult for her to e at as she left her dentures at home and does not have them here at the hospital. PULMONARY: She fee ls short of breath at rest. She does have a cough she says that is nonproductive. CARDIOVASCULAR: She describes some substernal burning discomfort more like heartburn she says and occasional solid fo od dysphagia, but rare. Seems to be worse without her dentures. GASTROINTESTINAL: Denies any abdom inal pain. She is unaware that she has had bleeding and was just told her stool was dark. She does not recall having a bowel movement overnight, but there is 1 reported by the nursing. I will have to double check this. RHEUMATOLOGIC: She has low back pain. She said her left leg hurts where the fr acture was that is wrapped and in a boot and dressing. She denies any other joint complaints. DERMA TOLOGIC: Denies pruritus or jaundice. No rash. NEURO: Denies focal weakness. She says her memory sometimes is poor, but that does not seem new. She says she feels diffusely weak and just tired. H EMATOLOGIC: No bruising or epistaxis is noted. PHYSICAL EXAM: VITAL SIGNS: Blood pressure is 118/63, heart rate 61, respirations are 16. Oxygenat ion is 92% on 5 L nasal cannula, temperature is 36.6. GENERAL: Obese female in bed, no acute distre ss. Does seem a bit short of breath. Alert and able to provide some of her own history. A lot of i t is gleaned from chart review. HEENT: She has a Dane dialysis catheter in the right neck. NECK : Supple. I do not appreciate any jugular venous distention, but her neck is very short and she is obese. PULMONARY: Coarse breath sounds throughout, diminished at the bases. She does cough with de ep breathing and this is nonproductive. CARDIOVASCULAR: Regular rate and rhythm with ectopy. She h as an aortic valve click that is quite prominent. There is a holosystolic murmur in all listening ar eas. ABDOMEN: Obese but soft. I cannot elicit any tenderness. Previous surgical scars seem well h ealed. No obvious herniation. No ascites. She does have an abdominal bruit that is centered over t he umbilical area. EXTREMITIES: The left leg is in a wrap and boot from her fracture. She is able to wiggle her toes on both legs the same. Her extremities are pale. There is no edema. NEUROLOGIC: Alert to person, place, and time. Speech is normal. Affect seems appropriate. Nonfocal motor exa m. She does not move the left leg very well, but I think this is because of the fracture and its imm obilization in the boot and wrap. LABORATORIES: Today, her hematocrit is 27.5, on 06/15/2018 it was 28.9, today, it was 27.5. The last complete CBC is 06/15/2018. White count is 6.9, hematocrit was 28.9, and platelets w ere 442. INR today is 2.19, yesterday it was 2.37. Serum creatinine is 2.1 with a BUN of 101. Sodi um 132, potassium 3.7, chloride 93, albumin is low at 2.8. Stool is Hemoccult positive. IMPRESSION: 1. Melena. 2. Anemia, multifactorial, but certainly a component of acute blood loss. 3. Valvular heart disease. 4. Acute on chronic kidney injury. 5. Morbid obesity. 6. Type 2 diabetes. 7. Long-term use of anticoagulation for atrial fibrillation and mechanical heart valve aortic positi on. RECOMMENDATIONS: 1. Conservative management for the bleeding seems best if possible. She is at high risk for any end oscopic intervention and this would only be recommended if she had continued ongoing and significant bleeding. 2. The other component of this, however, is that blood products may be a little problematic to admin jay as she is in some renal failure and does not seem like she can handle a lot of volume, so if th e bleeding is slow and manageable and we could dialyze her a bit to remove volume to allow her to get some blood products this may be one avenue of management; however, if the plan is not for dialysis t o maintain her blood volume and therefore she cannot get any blood products, then again endoscopy I w ould lean toward this more urgently because of the inability to correct her with FFP or get blood. 3. Fortunately, her blood count seems stable, at least for now, from June 15. I would recommend con tinuing to follow her hematocrit at least every 8 hours and monitoring for melena. 4. Agree with the initiation of Protonix 40 mg IV q.6 for now. 5. Keep her INR between 2 and 2.5. I would recommend checking her INR daily before dosing her Couma din and if it is within the parameters of between 2 and 2.5, then give her her Coumadin dose. If we can avoid higher levels of INR, this may help us with the bleeding risk. 6. I have had a discussion with the patient about the need for endoscopy if she has ongoing bleeding . She seems agreeable to this. She would need an anesthesia consultation to manage her for the anes thesia, which we would hopefully be able to use propofol but she might require intubation, which yuriy dior could be problematic. 7. For now we will just manage this medically and continue close observation. If things change, we will move towards endoscopy. /[id number]/MODL
[2018-06-19] MEDS: ATORVASTATIN CALCIUM 40 MG TAB PO SCH (21:23)
[2018-06-20] MEDS: ACETAMINOPHEN 325 MG TAB PO PRN ×4 (00:15→20:33)
[2018-06-20] MEDS: PANTOPRAZOLE SODIUM 40 MG VIAL IVP SCH ×3 (00:23→12:05)
[2018-06-20] MEDS: SODIUM CL NASAL 45 ML BTL EACHNARE SCH ×4 (05:47→20:32)
[2018-06-20] MEDS: FUROSEMIDE 100 MG in D5W 100 ML IV SCH ×2 (07:54→17:46)
[2018-06-20] MEDS: CARVEDILOL 25 MG TAB PO SCH ×2 (08:00→17:45)
[2018-06-20] MEDS: METOLAZONE 5 MG TAB PO SCH (08:00)
[2018-06-20] MEDS: SPIRONOLACTONE 50 MG TAB PO SCH ×2 (08:01→15:06)
[2018-06-20] MEDS: DULoxetine 30 MG CAP PO SCH (08:01)
[2018-06-20] MEDS: SENNOSIDES/DOCUSATE SODIUM TAB PO SCH ×2 (08:01→20:33)
[2018-06-20 10:24] LABS: INR 2.17 (0.83-1.16); PROTIME(PATIENT) 23.1 SEC (12.0-15.0)
[2018-06-20] MEDS: INSULIN LISPRO 100 UNIT/ML SC SCH ×3 (10:29→18:29)
[2018-06-20] MEDS: INSULIN GLARGINE 100 UNITS/ML UNIT SC SCH (12:04)
--- NOTE | 2018-06-20 12:06 | SOAPPROG ---
SOAP Progress Note Assessment/Plan: Assessment/Plan: CONRAD on CKD 4: baseline Cr close to 2, currently 2.0, but with marked volume overload. - Dialysis has been discussed with pt and she is willing to undergo it if necessary. - She is having more response to diuretics, will adjust as below. - Pt has dialysis catheter in place, but now is having better response to diuretics, unlikely to need dialysis. - Avoid hypotension and nephrotoxins. Hypervolemia: pt remains markedly volume overloaded, now having better response to diuretics. - Will continue Lasix ggt and metolazone and spironolactone. - Will tighten fluid restriction to 1L, discussed with pt importance of following restriction. Hyponatremia: Na stable at 133, working on diuresis as above, also placing on 1L fluid restriction. HTN: BP ok on current meds, will continue to monitor. Subjective: No acute events overnight. Pt notes she is urinating a lot more, feels her swelling is improving. Her breathing feels comfortable. She is sitting up in a chair. Objective: Vital Signs Temp Pulse Resp BP Pulse Ox 36.4 C 64 17 115/69 92 06/20/18 11:11 06/20/18 11:11 06/20/18 11:11 06/20/18 11:11 06/20/18 11:11 Laboratory Results 06/20/18 07:50 06/20/18 03:42 06/19/18 06/20/18 06/21/18 05:59 05:59 05:59 Intake Total 1332 1116 Output Total 639 437 2580 Balance 832 165 -1000 PT 23.1 SEC (12.0-15.0) H 06/20/18 09:55 INR 2.17 (0.83-1.16) H 06/20/18 09:55 General: alert and oriented, no acute distress Eyes: EOMI, PERRL OP: Clear CV: RRR Resp: nonlabored respirations on NC Abd: Soft, NT Ext: +2 edema BLE Neuro: CN II-XII Grossly intact, no asterixis Psych: cooperative Access: RIJ temp cath ICD10 Worksheet Patient Problems: Problems Problem Status Onset Atrial fibrillation Acute Peripheral edema Acute Skin tear of right upper arm without complication Acute Trimalleolar fracture of ankle, closed Acute UTI (urinary tract infection) Acute Cerebral infarction Active
--- NOTE | 2018-06-20 12:27 | ASMTCMCOM ---
CM Note CM Note Notes: Plan of care reviewed with MD. Patient currently being monitored for potential need for HD. Urine output is improving. CM to follow for needs. Plan: To [facility] when medically cleared for discharge to home. Date Signed: 06/20/2018 12:25 PM Electronically Signed By:Lynda Cordero RN
--- NOTE | 2018-06-20 13:29 | SOAPPROG ---
SOAP Progress Note Assessment/Plan: Assessment: 1. Anemia 2. Melena 3. CONRAD Plan: 1. Hct stable without need for transfusion 2. No further melena 3. Renal function stable and still oliguric but improving slowly 4. Continue PPI but can change to BID dosing 5. Call if further bleeding and will arrange for EGD. 06/20/18 13:26 Subjective: CC: No melena Denies abdominal pain No N/V or hematemesis Objective: Vital Signs Temp Pulse Resp BP Pulse Ox 36.4 C 64 17 115/69 92 06/20/18 11:11 06/20/18 11:11 06/20/18 11:11 06/20/18 11:11 06/20/18 11:11 Laboratory Results 06/20/18 07:50 06/20/18 03:42 06/19/18 06/20/18 06/21/18 05:59 05:59 05:59 Intake Total 1332 1116 Output Total 087 452 6352 Balance 832 165 -1000 PT 23.1 SEC (12.0-15.0) H 06/20/18 09:55 INR 2.17 (0.83-1.16) H 06/20/18 09:55 Physical Exam - Physical Exam General Appearance: no apparent distress, obese Neck: other (Dialysis catheter right neck) Respiratory: decreased breath sounds, rhonchi Cardiac/Chest: regular rate, rhythm, systolic murmur Abdomen: non-tender, soft, No distended, No guarding, No rebound ICD10 Worksheet Patient Problems: Problems Problem Status Onset Atrial fibrillation Acute Peripheral edema Acute Skin tear of right upper arm without complication Acute Trimalleolar fracture of ankle, closed Acute UTI (urinary tract infection) Acute Cerebral infarction Active
--- NOTE | 2018-06-20 15:09 | HOSPPROG ---
Hospitalist Progress Note Assessment/Plan: 67-year-old with multiple medical issues was found down at home after a fall in which she sustained an ankle fracture and was unable to move. She was eventually found by her daughter after several hours. She has had her ankle fracture treated and will eventually go to skilled rehab however she has not been medically stable because of renal failure and fluid overload, possible GIB #Left trimalleolar fracture, status post ORIF on 06/[address] Rodriguez * PT/OT * SNF placement when stable medically # Acute on Chronic Renal Failure, she has been difficult to diurese as some of the swelling has been going on for several months. Currently on Lasix gtt ( started on 06/14), was on BID IV Lasix with weight gain * Appreciate renal consultation, added Metolazone on 06/16 with increased dose and addition of Spironolactone on 06/17 with improving Urine output, was ~1000 ml 24 hours * S/p HD catheter placement on 06/17 * Nephrology to assess daily for initiation of dialyis, f/u their recommendations #atrial fibrillation, mech AVR and hx embolic CVA, needed anticoagulation up to surgery and no reversal * Coumadin restarted after heparin bridge in setting of surgery, goal INR 2.5- 3.5 previously * S/p 5 mg Vit K on 06/17 prior to HD catheter placement per IR recommendations * INR 2.17 this AM in setting of possible GI bleed, GI recommended a subtherapeutic INR goal of ~2, discussed with cardiology on 06/17 who were fine with subtherapeutic INR in the setting of aortic valve for short time * Continue to monitor INR daily, pharmacy aware of dosing and new INR goal # Possible UGIB - H/H trending down slowly during admission, Hgb 8.7 on 06/19, 9.4 on 06/15 - Had episode of melena on 06/18, Occult stool positive for blood - Discussed with GI, who recommended to continue monitoring H/H, transition from IV to PO PPI BID this afternoon, if significant bleeding can reverse INR and proceed with EGD - Continue to monitor H/H #Epistaxis, s/p rhino rocket and ENT consult status post removal. # Acute hypoxia respiratory failure, likely multifactorial due to atelectasis postop, pulmonary edema, and high obesity hypoventilation syndrome. Stable on 5L NC. 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 Outpatient management. #DM2: Continue Lantus and follow blood sugars. Continue SSI #Hyperkalemia: resolved #Acute metabolic encephalopathy, resolved #H/o subdural hematoma in 2010 (non-operative management) #H/o infrarenal AAA: s/p stent graft repair. 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 She is not neutropenic here. #HTN: Coreg and amlodipine. Dispo: Plan for discharge to SNF pending clinical course Subjective: Pt reporting no complaints this AM Objective: Vital Signs Temp Pulse Resp BP Pulse Ox 36.4 C 64 17 115/69 92 06/20/18 11:11 06/20/18 11:11 06/20/18 11:11 06/20/18 11:11 06/20/18 11:11 Laboratory Results 06/20/18 07:50 06/20/18 03:42 06/19/18 06/20/18 06/21/18 05:59 05:59 05:59 Intake Total 1332 1116 Output Total 284 493 9507 Balance 832 165 -1275 PT 23.1 SEC (12.0-15.0) H 06/20/18 09:55 INR 2.17 (0.83-1.16) H 06/20/18 09:55 - Physical Exam Constitutional: chronically ill appearing Eyes: PERRL Ears, Nose, Mouth, Throat: moist mucous membranes Cardiovascular: irregularly irregular Respiratory: no respiratory distress, inspiratory crackles Gastrointestinal: soft, non-tender abdomen Skin: warm Musculoskeletal: generalized weakness Neurologic: AAOx3 Psychiatric: interacting appropriately ICD10 Worksheet Patient Problems: Problems Problem Status Onset Atrial fibrillation Acute Peripheral edema Acute Skin tear of right upper arm without complication Acute Trimalleolar fracture of ankle, closed Acute UTI (urinary tract infection) Acute Cerebral infarction Active
[2018-06-20] MEDS: PANTOPRAZOLE SODIUM 40 MG TAB PO SCH (20:33)
[2018-06-20] MEDS: ATORVASTATIN CALCIUM 40 MG TAB PO SCH (20:33)
[2018-06-21] MEDS: FUROSEMIDE 100 MG in D5W 100 ML IV SCH ×3 (01:44→21:46)
[2018-06-21] MEDS: ACETAMINOPHEN 325 MG TAB PO PRN ×3 (05:01→18:22)
[2018-06-21] MEDS: SODIUM CL NASAL 45 ML BTL EACHNARE SCH ×4 (05:02→21:01)
[2018-06-21 05:09] LABS: INR 2.13 (0.83-1.16); PROTIME(PATIENT) 22.8 SEC (12.0-15.0)
[2018-06-21] MEDS: INSULIN LISPRO 100 UNIT/ML SC SCH ×3 (08:36→18:21)
[2018-06-21] MEDS: POLYETHYLENE GLYCOL 3350 17 GM PKT PO PRN (08:36)
[2018-06-21] MEDS: CALCITRIOL 0.25 MCG CAP PO SCH (08:36)
[2018-06-21] MEDS: SENNOSIDES/DOCUSATE SODIUM TAB PO SCH ×2 (08:37→20:58)
[2018-06-21] MEDS: PANTOPRAZOLE SODIUM 40 MG TAB PO SCH ×2 (08:37→20:59)
[2018-06-21] MEDS: CARVEDILOL 25 MG TAB PO SCH ×2 (08:37→17:16)
[2018-06-21] MEDS: SPIRONOLACTONE 50 MG TAB PO SCH ×2 (08:37→15:24)
[2018-06-21] MEDS: METOLAZONE 5 MG TAB PO SCH (08:37)
[2018-06-21] MEDS: DULoxetine 30 MG CAP PO SCH (08:37)
--- NOTE | 2018-06-21 09:51 | HOSPPROG ---
Hospitalist Progress Note Assessment/Plan: # L trimalleolar fracture s/p ORIF by Dr. 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 - cont warfarin # ABLA - d/t epistaxis, possible GIB reported melena could have been epistaxis) - continue to trend # epistaxis - s/p rhino rocket by ENT, now removed # ?UGIB - no EGD at this point, reconsult GI if needed # CONRAD on CKD - renal function slightly worse than baseline - appreciate renal assistance # volume overload - cont lasix IV, metolazone, aldactone - good diuresis last 24 hours # acute hypoxic resp failure - multifactorial - cont diuresis and follow O2 requirements # osteoporosis - fracture after fall from standing height - outpatient f/u # DM2 - gluce persistently elevated - incr lantus, cont SSI # metabolic encephalopathy - resolved # hx SDH in 2010 # hx infrarenal AAA: s/p stent graft repair. 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 S/p remote splenectomy. She is not neutropenic here. # htn: coreg Subjective: sleeping, but easliy awakes Objective: Vital Signs Temp Pulse Resp BP Pulse Ox 36.5 C 63 18 130/69 H 93 06/21/18 07:33 06/21/18 08:37 06/21/18 07:33 06/21/18 08:37 06/21/18 07:33 Laboratory Results 06/21/18 04:38 06/21/18 04:38 06/20/18 06/21/18 06/22/18 05:59 05:59 05:59 Intake Total 1116 582 Output Total 950 6845 Balance 165 -1992 PT 22.8 SEC (12.0-15.0) H 06/21/18 04:38 INR 2.13 (0.83-1.16) H 06/21/18 04:38 chart reviewed CXR personally reviewed - Physical Exam Constitutional: obese Cardiovascular: systolic murmur, irregularly irregular, edema, other (S2 click) , No diastolic murmur, No tachycardia, No bradycardia Respiratory: no respiratory distress, inspiratory crackles, No reduced air movement, No dullness to percussion, No rhonchi Gastrointestinal: soft, non-tender abdomen, no palpable masses, No guarding, No rebound, No distension ICD10 Worksheet Patient Problems: Problems Problem Status Onset Atrial fibrillation Acute Peripheral edema Acute Skin tear of right upper arm without complication Acute Trimalleolar fracture of ankle, closed Acute UTI (urinary tract infection) Acute Cerebral infarction Active
--- NOTE | 2018-06-21 11:53 | SOAPPROG ---
SOAP Progress Note Assessment/Plan: Assessment: CONRAD, overall improving, not oliguric Was in a meeting, unable to talk with patient or examine her Plan: continue same 06/21/18 11:52 Subjective: up to chair, denies complaints Objective: Vital Signs Temp Pulse Resp BP Pulse Ox 36.5 C 63 18 130/69 H 93 06/21/18 07:33 06/21/18 08:37 06/21/18 07:33 06/21/18 08:37 06/21/18 07:33 Laboratory Results 06/21/18 04:38 06/21/18 04:38 06/20/18 06/21/18 06/22/18 05:59 05:59 05:59 Intake Total 1116 582 Output Total 951 2575 Balance 165 -1992 PT 22.8 SEC (12.0-15.0) H 06/21/18 04:38 INR 2.13 (0.83-1.16) H 06/21/18 04:38 Physical Exam - Physical Exam General Appearance: other (up to chair, in a meeting, just said nic today) ICD10 Worksheet Patient Problems: Problems Problem Status Onset Atrial fibrillation Acute Peripheral edema Acute Skin tear of right upper arm without complication Acute Trimalleolar fracture of ankle, closed Acute UTI (urinary tract infection) Acute Cerebral infarction Active
[2018-06-21] MEDS: INSULIN GLARGINE 100 UNITS/ML UNIT SC SCH (12:39)
--- NOTE | 2018-06-21 15:56 | ASMTCMCOM ---
CM Note CM Note Notes: Updates sent to [facility] in [employer], pt not medically stable for d/c. Palliative team met with pt today(see note), outpatient palliative referral sent to [facility] in [employer]. CM to follow D/c plan: [facility] when medically stable Date Signed: 06/21/2018 03:55 PM Electronically Signed By:JUJU Leslie
[2018-06-21] MEDS ORDERED: WARFARIN SODIUM 2.5 MG TAB PO ONE (16:00)
[2018-06-21] MEDS: ONDANSETRON DISINTEGRATING 4 MG TAB PO PRN (17:16)
[2018-06-21] MEDS: ATORVASTATIN CALCIUM 40 MG TAB PO SCH (20:59)
[2018-06-22] MEDS: SODIUM CL NASAL 45 ML BTL EACHNARE SCH ×4 (05:55→20:42)
[2018-06-22 05:59] LABS: INR 2.3 (0.83-1.16); PROTIME(PATIENT) 24.2 SEC (12.0-15.0)
[2018-06-22] MEDS: ACETAMINOPHEN 325 MG TAB PO PRN ×4 (06:52→22:25)
[2018-06-22] MEDS: FUROSEMIDE 100 MG in D5W 100 ML IV SCH (07:50)
[2018-06-22] MEDS: SPIRONOLACTONE 50 MG TAB PO SCH ×2 (08:00→16:48)
[2018-06-22] MEDS: INSULIN LISPRO 100 UNIT/ML SC SCH ×3 (08:00→18:22)
[2018-06-22] MEDS: METOLAZONE 5 MG TAB PO SCH (08:00)
[2018-06-22] MEDS: DULoxetine 30 MG CAP PO SCH (08:00)
[2018-06-22] MEDS: SENNOSIDES/DOCUSATE SODIUM TAB PO SCH ×2 (08:01→20:41)
[2018-06-22] MEDS: CARVEDILOL 25 MG TAB PO SCH ×2 (08:01→18:22)
[2018-06-22] MEDS: PANTOPRAZOLE SODIUM 40 MG TAB PO SCH ×2 (08:01→20:41)
[2018-06-22] MEDS: POLYETHYLENE GLYCOL 3350 17 GM PKT PO PRN (08:03)
[2018-06-22] MEDS: INSULIN GLARGINE 100 UNITS/ML UNIT SC SCH (11:33)
--- NOTE | 2018-06-22 11:37 | SOAPPROG ---
SOAP Progress Note Assessment/Plan: Assessment: CONRAD, overall improving, not oliguric, 2.8 L out yesterday CKD 4,follows with Dr. Silva Ankle fracture, s/p repair volume overload, diuresing worsening alkalosis, suspect contraction Plan: Adjust diuretics dc/lasix infusion PO bumex BID change metolazone to every other day follow lytes vol and renal function Has HD cath in place, no urgent HD needs at this time, with tenuous nature of patient, would like to keep the HD cath for now. 06/21/18 11:52 06/22/18 11:33 Objective: Vital Signs Temp Pulse Resp BP Pulse Ox 36.7 C 73 17 136/56 H 93 06/22/18 11:13 06/22/18 11:13 06/22/18 11:13 06/22/18 11:13 06/22/18 11:13 Laboratory Results 06/22/18 04:46 06/22/18 04:46 06/21/18 06/22/18 06/23/18 05:59 05:59 05:59 Intake Total 582 575 50 Output Total 2575 2775 300 Balance -1992 -250 PT 24.2 SEC (12.0-15.0) H 06/22/18 04:46 INR 2.30 (0.83-1.16) H 06/22/18 04:46 Physical Exam - Physical Exam General Appearance: alert, obese Neck: other (RIJ temp HD cath) Respiratory: rales, wheezing, No respiratory distress, No rhonchi, No pleural rub Cardiac/Chest: regular rate, rhythm, edema, No friction rub Abdomen: normal bowel sounds, non-tender Extremities: swelling, other (ankle wrapped) Neuro/Psych: alert, normal mood/affect, oriented x 3 ICD10 Worksheet Patient Problems: Problems Problem Status Onset Atrial fibrillation Acute Peripheral edema Acute Skin tear of right upper arm without complication Acute Trimalleolar fracture of ankle, closed Acute UTI (urinary tract infection) Acute Cerebral infarction Active
--- NOTE | 2018-06-22 15:10 | HOSPPROG ---
Hospitalist Progress Note Assessment/Plan: # L trimalleolar fracture s/p ORIF by Dr. 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 - cont warfarin # ABLA - d/t epistaxis, possible GIB reported melena could have been epistaxis - continue to trend # epistaxis - s/p rhino rocket by ENT, now removed - not helped by her uremia; could consider DDAVP if she rebleeds # ?UGIB - no EGD at this point, reconsult GI if needed # CONRAD on CKD - renal function slightly worse than baseline - appreciate renal assistance # volume overload - contraction alkalosis today - lasix gtt stopped, bumex started - cont metolazone and aldactone # acute hypoxic resp failure - multifactorial - cont diuresis and follow O2 requirements # osteoporosis - fracture after fall from standing height - outpatient f/u # DM2 - gluce persistently elevated - incr lantus, cont SSI # metabolic encephalopathy - resolved # hx SDH in 2010 # hx infrarenal AAA: s/p stent graft repair. 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 S/p remote splenectomy. She is not neutropenic here. # htn: coreg Subjective: no new complaints; called dtr Cait to update her Objective: Vital Signs Temp Pulse Resp BP Pulse Ox 36.7 C 73 17 136/56 H 93 06/22/18 11:13 06/22/18 11:13 06/22/18 11:13 06/22/18 11:13 06/22/18 11:13 Laboratory Results 06/22/18 04:46 06/22/18 04:46 06/21/18 06/22/18 06/23/18 05:59 05:59 05:59 Intake Total 582 575 300 Output Total 4476 2005 1050 Balance -1992 - PT 24.2 SEC (12.0-15.0) H 06/22/18 04:46 INR 2.30 (0.83-1.16) H 06/22/18 04:46 - Physical Exam Constitutional: unkempt Cardiovascular: regular rate and rhythym, systolic murmur, edema (S1 click), No tachycardia, No bradycardia Respiratory: no respiratory distress, reduced air movement, inspiratory crackles , No clear to auscultation Gastrointestinal: soft, non-tender abdomen, no palpable masses, No guarding, No rebound, No distension ICD10 Worksheet Patient Problems: Problems Problem Status Onset Cerebral infarction Active Trimalleolar fracture of ankle, closed Acute UTI (urinary tract infection) Acute Peripheral edema Acute Skin tear of right upper arm without complication Acute Atrial fibrillation Acute
[2018-06-22] MEDS ORDERED: WARFARIN SODIUM 2.5 MG TAB PO ONE (16:00)
[2018-06-22] MEDS: ATORVASTATIN CALCIUM 40 MG TAB PO SCH (20:42)
[2018-06-22] MEDS: BUMETANIDE 1 MG TAB PO SCH (22:35)
[2018-06-23] MEDS: SODIUM CL NASAL 45 ML BTL EACHNARE SCH ×4 (05:25→21:52)
[2018-06-23 05:30] LABS: INR 2.59 (0.83-1.16); PROTIME(PATIENT) 26.5 SEC (12.0-15.0)
[2018-06-23] MEDS: POLYETHYLENE GLYCOL 3350 17 GM PKT PO PRN (08:19)
[2018-06-23] MEDS: ACETAMINOPHEN 325 MG TAB PO PRN ×4 (08:21→23:51)
[2018-06-23] MEDS: SENNOSIDES/DOCUSATE SODIUM TAB PO SCH ×2 (08:21→21:49)
[2018-06-23] MEDS: DULoxetine 30 MG CAP PO SCH (08:21)
[2018-06-23] MEDS: SPIRONOLACTONE 50 MG TAB PO SCH ×2 (08:21→14:34)
[2018-06-23] MEDS: PANTOPRAZOLE SODIUM 40 MG TAB PO SCH ×2 (08:22→21:49)
[2018-06-23] MEDS: CARVEDILOL 25 MG TAB PO SCH ×2 (08:22→17:55)
[2018-06-23] MEDS: BUMETANIDE 1 MG TAB PO SCH ×2 (08:23→21:48)
[2018-06-23] MEDS: INSULIN LISPRO 100 UNIT/ML SC SCH ×3 (08:25→17:55)
--- NOTE | 2018-06-23 09:32 | SOAPPROG ---
SOAP Progress Note Assessment/Plan: Assessment: Left ankle trimalleolar fracture - secondary to fall on 05-31-18; closed reduced in ER on 05-31-18 s/p left ankle ORIF bimalleolar fracture - POD 15 - Dr. Rodriguez Plan: Continue NWBing on left lower extremity Keep splint clean, dry and intact Continue pain management Continue PT/OT efforts Continue D/C planning - she is agreeable to [facility] Hospital medicine following for multiple other medical issues - d/c when medically stable Subjective: Patient states there is no pain in her left ankle. Her main complaint is overall body stiffness and shortness of breath. No major complaints. Objective: Vital Signs Temp Pulse Resp BP Pulse Ox 36.6 C 70 16 124/60 H 90 L 06/23/18 08:15 06/23/18 08:22 06/23/18 08:15 06/23/18 08:22 06/23/18 08:15 Laboratory Results 06/23/18 04:27 06/23/18 04:27 06/22/18 06/23/18 06/24/18 05:59 05:59 05:59 Intake Total 575 800 Output Total 2775 3200 Balance -2200 -2400 PT 26.5 SEC (12.0-15.0) H 06/23/18 04:27 INR 2.59 (0.83-1.16) H 06/23/18 04:27 Patient sitting comfortably in her chair, nasal cannula in place. LLE: Posterior short leg splint is clean, dry and intact. Mild edema distally into her foot. She can actively move all toes. Grossly NVI distally. ICD10 Worksheet Patient Problems: Problems Problem Status Onset Atrial fibrillation Acute Peripheral edema Acute Skin tear of right upper arm without complication Acute Trimalleolar fracture of ankle, closed Acute UTI (urinary tract infection) Acute Cerebral infarction Active
--- NOTE | 2018-06-23 11:51 | SOAPPROG ---
SOAP Progress Note Assessment/Plan: Assessment/Plan: CONRAD on CKD 4: baseline Cr close to 2, currently stable around 2.1, lytes ok. - Dialysis has been discussed with pt and she is willing to undergo it if necessary. - She is having more response to diuretics, will adjust as below. - Pt has dialysis catheter in place, but now is having better response to diuretics, does not need dialysis. Ok to remove dialysis catheter. - Avoid hypotension and nephrotoxins. Hypervolemia: pt remains markedly volume overloaded, but having great response to diuretic. - Will continue Bumex and spironolactone. - Will d/c metolazone and start acetazolamide given metabolic alkalosis. - Will continue 1L fluid restriction. - Would like to see pt stabilized on a diuretic regimen prior to discharge. Metabolic alkalosis: due to diuretics, will d/c metolazone and start acetazolamide as above, will continue to monitor. HTN: BP ok on current meds, will continue to monitor. Subjective: No acute events overnight. Pt is feeling generally stiff and has some pain, but she notes that she does not want to leave the hospital too early. She continues to have good UOP and breathing is comfortable. Objective: Vital Signs Temp Pulse Resp BP Pulse Ox 36.6 C 70 16 124/60 H 90 L 06/23/18 08:15 06/23/18 08:22 06/23/18 08:15 06/23/18 08:22 06/23/18 08:15 Laboratory Results 06/23/18 04:27 06/23/18 04:27 06/22/18 06/23/18 06/24/18 05:59 05:59 05:59 Intake Total 575 800 358 Output Total 2775 3200 700 Balance -2200 -2400 -342 PT 26.5 SEC (12.0-15.0) H 06/23/18 04:27 INR 2.59 (0.83-1.16) H 06/23/18 04:27 General: alert and oriented, no acute distress Eyes: EOMI, PERRL OP: Clear CV: RRR Resp: nonlabored respirations on NC Abd: Soft, NT Ext: +2 edema BLE Neuro: CN II-XII Grossly intact, no asterixis Psych: cooperative Access: RIJ temp cath ICD10 Worksheet Patient Problems: Problems Problem Status Onset Atrial fibrillation Acute Peripheral edema Acute Skin tear of right upper arm without complication Acute Trimalleolar fracture of ankle, closed Acute UTI (urinary tract infection) Acute Cerebral infarction Active
--- NOTE | 2018-06-23 12:03 | HOSPPROG ---
Hospitalist Progress Note Assessment/Plan: # L trimalleolar fracture s/p ORIF by Dr. 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 - cont warfarin # ABLA - d/t epistaxis, possible GIB reported melena could have been epistaxis - stable for a few days # epistaxis - s/p rhino rocket by ENT, now removed - uremia may exacerbate (in addition to AC); could consider DDAVP if she rebleeds # ?UGIB - no EGD at this point, reconsult GI if needed # CONRAD on CKD - renal function slightly worse than baseline - appreciate renal assistance # volume overload - contraction alkalosis today - lasix gtt stopped, bumex started - cont aldactone - stop metolazone, start diamox # acute hypoxic resp failure - multifactorial - cont diuresis and follow O2 requirements # osteoporosis - fracture after fall from standing height - outpatient f/u # DM2 - gluce persistently elevated - incr lantus, cont SSI # metabolic encephalopathy - resolved # hx SDH in 2010 # hx infrarenal AAA: s/p stent graft repair. 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 S/p remote splenectomy. She is not neutropenic here. # htn: coreg Subjective: no acute events; took laxatives today Objective: Vital Signs Temp Pulse Resp BP Pulse Ox 36.6 C 70 16 124/60 H 90 L 06/23/18 08:15 06/23/18 08:22 06/23/18 08:15 06/23/18 08:22 06/23/18 08:15 Laboratory Results 06/23/18 04:27 06/23/18 04:27 06/22/18 06/23/18 06/24/18 05:59 05:59 05:59 Intake Total 575 800 358 Output Total 4695 3200 700 Balance -2200 -2400 -342 PT 26.5 SEC (12.0-15.0) H 06/23/18 04:27 INR 2.59 (0.83-1.16) H 06/23/18 04:[address] Stockton - Physical Exam Constitutional: obese Cardiovascular: regular rate and rhythym, no murmur, rub, or gallop Respiratory: no respiratory distress, no rales or rhonchi, clear to auscultation Gastrointestinal: soft, non-tender abdomen, no palpable masses, No guarding, No rebound ICD10 Worksheet Patient Problems: Problems Problem Status Onset Cerebral infarction Active Trimalleolar fracture of ankle, closed Acute UTI (urinary tract infection) Acute Peripheral edema Acute Skin tear of right upper arm without complication Acute Atrial fibrillation Acute
[2018-06-23] MEDS: INSULIN GLARGINE 100 UNITS/ML UNIT SC SCH ×2 (12:22→12:26)
[2018-06-23] MEDS: BISACODYL 10 MG SUPP PR PRN (14:34)
[2018-06-23] MEDS: acetaZOLAMIDE 250 MG TAB PO SCH (14:34)
[2018-06-23] MEDS ORDERED: WARFARIN SODIUM 2.5 MG TAB PO SCH (16:00)
--- NOTE | 2018-06-23 16:32 | ASMTCMCOM ---
CM Note GERRY Note Notes: Spoke with MD, pt may be able to dc to SNF on Wednesday. CM notified Shira at [facility] and sent updates, pt did not work with PT today so those notes need to be sent tomorrow for re authorization. GERRY met with pt to discuss, she will work with PT tomorrow. DC Plan: SNF/ [facility] Date Signed: 06/23/2018 04:30 PM Electronically Signed By:Denise Munoz RN
[2018-06-23] MEDS: ATORVASTATIN CALCIUM 40 MG TAB PO SCH (21:47)
[2018-06-23] MEDS: ONDANSETRON DISINTEGRATING 4 MG TAB PO PRN (21:47)
[2018-06-24] MEDS: SODIUM CL NASAL 45 ML BTL EACHNARE SCH ×4 (05:37→21:26)
[2018-06-24 05:38] LABS: INR 2.96 (0.83-1.16); PROTIME(PATIENT) 29.3 SEC (12.0-15.0)
[2018-06-24] MEDS: INSULIN LISPRO 100 UNIT/ML SC SCH ×4 (07:43→19:48)
--- NOTE | 2018-06-24 08:23 | HOSPPROG ---
Hospitalist Progress Note Assessment/Plan: 67 y F with tri-malleolar fracture with heart failure, epistaxis #L trimalleolar fracture s/p ORIF by Dr. Rodriguez - NWB # Volume overload - -decrease Bumex/Aldactone. Cont Acetazolamide #Metabolic alkalosis: contraction. 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 H/H stable # epistaxis - s/p rhino rocket by ENT, now removed - uremia may exacerbate (in addition to AC); could consider DDAVP if she rebleeds # ?UGIB - no EGD at this point, reconsult GI if needed # CONRAD on CKD - Cr stable with diuresis # Acute hypoxic resp failure - multifactorial - cont diuresis and follow O2 requirements # osteoporosis - fracture after fall from standing height - outpatient f/u # DM2 - gluce persistently elevated - incr lantus, cont SSI # metabolic encephalopathy - resolved # hx SDH in 2010 # hx infrarenal AAA: s/p stent graft repair. # hx remote MRSA bacteremia # RA: complicated by Felty syndrome: Not on medication for this. S/p remote splenectomy #HTN: Coreg #Diet: 1L fluid restriction #DVT ppx: Coumadin Disp: inpatient admission for monitored diuresis. DC to [facility] once stable diuretic regimen Subjective: SOB this morning. Pivots to chair with PT Objective: Vital Signs Temp Pulse Resp BP Pulse Ox 36.7 C 69 18 144/62 H 97 06/24/18 07:32 06/24/18 07:32 06/24/18 07:32 06/24/18 07:32 06/24/18 07:32 Laboratory Results 06/24/18 04:49 06/24/18 04:49 06/23/18 06/24/18 06/25/18 05:59 05:59 05:59 Intake Total 800 978 Output Total 3200 2050 Balance -2400 -1072 PT 29.3 SEC (12.0-15.0) H 06/24/18 04:49 INR 2.96 (0.83-1.16) H 06/24/18 04:49 - Time Spent With Patient Time Spent with Patient: greater than 35 minutes Time Spent with Patient: Greater than 35 minutes spent on this patients care, greater than 50% of time spent counseling, educating, and coordinating care regarding the above mentioned plan. - Physical Exam Constitutional: obese, other (tired) Eyes: PERRL Ears, Nose, Mouth, Throat: moist mucous membranes Cardiovascular: edema Respiratory: no respiratory distress Gastrointestinal: normoactive bowel sounds Genitourinary: no bladder fullness Skin: warm Musculoskeletal: full muscle strength, other (left foot casted) Neurologic: CN II-XII Intact Psychiatric: interacting appropriately ICD10 Worksheet Patient Problems: Problems Problem Status Onset Atrial fibrillation Acute Peripheral edema Acute Skin tear of right upper arm without complication Acute Trimalleolar fracture of ankle, closed Acute UTI (urinary tract infection) Acute Cerebral infarction Active
--- NOTE | 2018-06-24 08:51 | SOAPPROG ---
SOAP Progress Note Assessment/Plan: Assessment: Left ankle trimalleolar fracture - secondary to fall on 05-31-18; closed reduced in ER on 05-31-18 s/p left ankle ORIF bimalleolar fracture - POD 16 - Dr. Rodriguez Plan: Continue NWBing on left lower extremity Keep splint clean, dry and intact Continue pain management Continue PT/OT efforts Continue D/C planning - she is agreeable to [facility] Hospital medicine following for multiple other medical issues - d/c when medically stable - possible d/c tomorrow to SNF[facility] Follow up with Dr. Rodriguez as directed Subjective: Patient states she feels tired. Reports there is no pain in her left ankle. Objective: Vital Signs Temp Pulse Resp BP Pulse Ox 36.7 C 69 18 144/62 H 97 06/24/18 07:32 06/24/18 07:32 06/24/18 07:32 06/24/18 07:32 06/24/18 07:32 Laboratory Results 06/24/18 04:49 06/24/18 04:49 06/23/18 06/24/18 06/25/18 05:59 05:59 05:59 Intake Total 800 978 Output Total 3200 2050 Balance -2400 -1072 PT 29.3 SEC (12.0-15.0) H 06/24/18 04:49 INR 2.96 (0.83-1.16) H 06/24/18 04:49 Patient sleeping when I entered the room, easily awakened. She is on oxygen, coughing. LLE: Posterior short leg splint is clean, dry and intact. Mild edema distally into the foot. She can actively move all toes. Intact to light touch distally. Capillary refill < 2-3 seconds in toes. ICD10 Worksheet Patient Problems: Problems Problem Status Onset Atrial fibrillation Acute Peripheral edema Acute Skin tear of right upper arm without complication Acute Trimalleolar fracture of ankle, closed Acute UTI (urinary tract infection) Acute Cerebral infarction Active
[2018-06-24] MEDS ORDERED: METOLAZONE 5 MG TAB PO SCH (09:00)
[2018-06-24] MEDS: ACETAMINOPHEN 325 MG TAB PO PRN ×3 (09:19→19:44)
[2018-06-24] MEDS: BUMETANIDE 1 MG TAB PO SCH ×2 (09:20→21:20)
[2018-06-24] MEDS: CARVEDILOL 25 MG TAB PO SCH ×2 (09:20→19:45)
[2018-06-24] MEDS: SENNOSIDES/DOCUSATE SODIUM TAB PO SCH ×2 (09:20→21:20)
[2018-06-24] MEDS: PANTOPRAZOLE SODIUM 40 MG TAB PO SCH ×2 (09:20→21:20)
[2018-06-24] MEDS: DULoxetine 30 MG CAP PO SCH (09:20)
[2018-06-24] MEDS: acetaZOLAMIDE 250 MG TAB PO SCH ×2 (09:21→16:27)
[2018-06-24] MEDS: SPIRONOLACTONE 50 MG TAB PO SCH (09:22)
--- NOTE | 2018-06-24 10:02 | SOAPPROG ---
SOAP Progress Note Assessment/Plan: Assessment/Plan: CONRAD on CKD 4: baseline Cr close to 2, currently stable around 2.2, lytes ok. - Will adjust diuretics as below. - Will continue to monitor. - Avoid hypotension and nephrotoxins. Hypervolemia: pt was markedly volume overloaded, but having great response to diuretics and is improved. - Will cut down dosage of Bumex and spironolactone. - Will continue acetazolamide. - Will continue 1L fluid restriction. - Would like to see pt stabilized on a diuretic regimen prior to discharge. Metabolic alkalosis: due to diuretics, cutting down diuretics and started on acetazolamide, will continue to monitor. HTN: BP ok on current meds, will continue to monitor. Subjective: No acute events overnight. Pt continues to have large UOP, feels better in general. Objective: Vital Signs Temp Pulse Resp BP Pulse Ox 36.7 C 73 18 121/59 H 97 06/24/18 07:32 06/24/18 09:20 06/24/18 07:32 06/24/18 09:20 06/24/18 07:32 Laboratory Results 06/24/18 04:49 06/24/18 04:49 06/23/18 06/24/18 06/25/18 05:59 05:59 05:59 Intake Total 800 978 Output Total 3200 2050 400 Balance -2400 -1072 -400 PT 29.3 SEC (12.0-15.0) H 06/24/18 04:49 INR 2.96 (0.83-1.16) H 06/24/18 04:49 General: alert and oriented, no acute distress Eyes: EOMI, PERRL OP: Clear CV: RRR Resp: nonlabored respirations on NC Abd: Soft, NT Ext: +1 edema BLE, much improved from admission Neuro: CN II-XII Grossly intact Psych: cooperative ICD10 Worksheet Patient Problems: Problems Problem Status Onset Atrial fibrillation Acute Peripheral edema Acute Skin tear of right upper arm without complication Acute Trimalleolar fracture of ankle, closed Acute UTI (urinary tract infection) Acute Cerebral infarction Active
[2018-06-24] MEDS: INSULIN GLARGINE 100 UNITS/ML UNIT SC SCH (13:53)
[2018-06-24] MEDS ORDERED: WARFARIN SODIUM 3 MG TAB PO SCH (16:00)
[2018-06-24] MEDS: ATORVASTATIN CALCIUM 40 MG TAB PO SCH (21:20)
[2018-06-25] MEDS: SPIRONOLACTONE 50 MG TAB PO SCH ×2 (00:02→08:42)
[2018-06-25] MEDS: ACETAMINOPHEN 325 MG TAB PO PRN ×3 (03:14→21:48)
[2018-06-25 05:43] LABS: INR 3.28 (0.83-1.16); PROTIME(PATIENT) 31.7 SEC (12.0-15.0)
[2018-06-25] MEDS: SODIUM CL NASAL 45 ML BTL EACHNARE SCH ×4 (06:07→21:57)
[2018-06-25] MEDS: SENNOSIDES/DOCUSATE SODIUM TAB PO SCH ×2 (08:42→21:49)
[2018-06-25] MEDS: acetaZOLAMIDE 250 MG TAB PO SCH ×2 (08:42→16:06)
[2018-06-25] MEDS: BUMETANIDE 1 MG TAB PO SCH ×2 (08:43→21:49)
[2018-06-25] MEDS: CARVEDILOL 25 MG TAB PO SCH ×2 (08:43→17:47)
[2018-06-25] MEDS: DULoxetine 30 MG CAP PO SCH (08:44)
[2018-06-25] MEDS: PANTOPRAZOLE SODIUM 40 MG TAB PO SCH ×2 (08:44→21:49)
[2018-06-25] MEDS: INSULIN LISPRO 100 UNIT/ML SC SCH ×3 (08:46→17:47)
[2018-06-25] MEDS ORDERED: POTASSIUM CL 20 MEQ TAB PO ONE (10:09)
--- NOTE | 2018-06-25 10:11 | HOSPPROG ---
Hospitalist Progress Note Assessment/Plan: 67 y F with tri-malleolar fracture with heart failure, epistaxis #L trimalleolar fracture s/p ORIF by Dr. Rodriguez - NWB # Volume overload - -decrease Bumex/Aldactone again today #CONRAD on CKD: improved. -decrease Aldactone with h/o hyperK #Hypokalemia: gentle repletion with CKD #Metabolic alkalosis: contraction. 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 H/H stable # epistaxis - s/p rhino rocket by ENT, now removed - uremia may exacerbate (in addition to AC); could consider DDAVP if she rebleeds # ?UGIB - no EGD at this point, reconsult GI if needed # Acute hypoxic resp failure - multifactorial - cont diuresis and follow O2 requirements # osteoporosis - fracture after fall from standing height - outpatient f/u # DM2 - gluce persistently elevated - incr lantus, cont SSI # metabolic encephalopathy - resolved # hx SDH in 2010 # hx infrarenal AAA: s/p stent graft repair. # hx remote MRSA bacteremia # RA: complicated by Felty syndrome: Not on medication for this. S/p remote splenectomy #HTN: Coreg #Diet: 1L fluid restriction #DVT ppx: Coumadin Disp: inpatient admission for monitored diuresis. Hope to DC tomorrow to rehab Subjective: less shortness of breath. Looking forward to rehab and getting out of hospital Objective: Vital Signs Temp Pulse Resp BP Pulse Ox 37.0 C 73 18 127/61 H 92 06/25/18 07:34 06/25/18 08:43 06/25/18 07:34 06/25/18 08:43 06/25/18 07:34 Laboratory Results 06/24/18 04:49 06/25/18 04:48 06/24/18 06/25/18 06/26/18 05:59 05:59 05:59 Intake Total 978 250 Output Total 2049 1800 Balance -1072 -1550 PT 31.7 SEC (12.0-15.0) H 06/25/18 04:48 INR 3.28 (0.83-1.16) H 06/25/18 04:48 - Time Spent With Patient Time Spent with Patient: greater than 35 minutes Time Spent with Patient: Greater than 35 minutes spent on this patients care, greater than 50% of time spent counseling, educating, and coordinating care regarding the above mentioned plan. - Physical Exam Constitutional: no apparent distress Eyes: PERRL Ears, Nose, Mouth, Throat: moist mucous membranes Cardiovascular: regular rate and rhythym, edema (+1 edema, BL legs), other ( mechanical valve) Respiratory: no respiratory distress Gastrointestinal: normoactive bowel sounds Genitourinary: no bladder fullness Musculoskeletal: other (left foot casted) Neurologic: AAOx3, CN II-XII Intact Psychiatric: interacting appropriately ICD10 Worksheet Patient Problems: Problems Problem Status Onset Atrial fibrillation Acute Peripheral edema Acute Skin tear of right upper arm without complication Acute Trimalleolar fracture of ankle, closed Acute UTI (urinary tract infection) Acute Cerebral infarction Active
--- NOTE | 2018-06-25 12:30 | SOAPPROG ---
SOLEONCIO Progress Note Assessment/Plan: Assessment: 1. crf: creat stable at b/l for past week despite large diuresis. 2. overload: excellent diuresis over past week or so but remains sig volume up. Has hx/o hyperK on acei, therefore will need to be very cautious with spironolactone. Will reduce dose to 50mg daily, cont current bumex/diamox dosing. On d/c would send out on spironolactone 50mg daily and bumex 1mg bid. 3. Met alk: contraction from diuresis but does not appear at all dry. Expect this to slowly resolve with reduction in diuretic dosing. 4. dispo: out anytime from renal standpoint. D/c on bumex/spironolactone as above. Will need weekly RFP on d/c and f/u with Dr. Lyle in next month or so. Plan: 06/25/18 12:26 Subjective: Up in chair. Uncomfortable, hoping to get out of hospital soon. Objective: Vital Signs Temp Pulse Resp BP Pulse Ox 36.7 C 71 18 135/59 H 94 06/25/18 11:39 06/25/18 11:39 06/25/18 11:39 06/25/18 11:39 06/25/18 11:39 Laboratory Results 06/24/18 04:49 06/25/18 04:48 06/24/18 06/25/18 06/26/18 05:59 05:59 05:59 Intake Total 978 250 Output Total 2050 1800 500 Balance -1072 -1550 -500 PT 31.7 SEC (12.0-15.0) H 06/25/18 04:48 INR 3.28 (0.83-1.16) H 06/25/18 04:48 Physical Exam - Physical Exam General Appearance: no apparent distress Respiratory: decreased breath sounds Cardiac/Chest: regular rate, rhythm, extra beats Abdomen: non-tender, soft Extremities: swelling (LE edema >knees bilaterally) ICD10 Worksheet Patient Problems: Problems Problem Status Onset Atrial fibrillation Acute Peripheral edema Acute Skin tear of right upper arm without complication Acute Trimalleolar fracture of ankle, closed Acute UTI (urinary tract infection) Acute Cerebral infarction Active
[2018-06-25] MEDS: INSULIN GLARGINE 100 UNITS/ML UNIT SC SCH (12:39)
--- NOTE | 2018-06-25 15:40 | ASMTCMCOM ---
CM Note CM Note Notes: Hospitalist Dileep indicates pt likely ready for d/c tomorrow to [facility]. [facility] is able to accept pt tomorrow. Stretcher transport pre-arranged online with the [facility] program for Shira souza at [facility] notified. Updates sent to [facility] in [employer]. Pt is updated and verbalizes she is ready to d/c. Pt [facility] Cait ([phone]) also notified. D/c plan: [facility] tomorrow Date Signed: 06/25/2018 03:39 PM Electronically Signed By:JUJU Leslie
[2018-06-25] MEDS ORDERED: WARFARIN SODIUM 1 MG TAB PO ONE (16:00)
[2018-06-25] MEDS: ATORVASTATIN CALCIUM 40 MG TAB PO SCH (21:48)
[2018-06-26 05:13] LABS: INR 3.44 (0.83-1.16); PROTIME(PATIENT) 32.9 SEC (12.0-15.0)
[2018-06-26 07:47] VITALS: BP 138/64
[2018-06-26] MEDS ORDERED: SPIRONOLACTONE 50 MG TAB PO SCH (09:00)
[2018-06-26] MEDS: ACETAMINOPHEN 325 MG TAB PO PRN (09:10)
[2018-06-26] MEDS: SENNOSIDES/DOCUSATE SODIUM TAB PO SCH (09:10)
[2018-06-26] MEDS: acetaZOLAMIDE 250 MG TAB PO SCH (09:10)
[2018-06-26] MEDS: PANTOPRAZOLE SODIUM 40 MG TAB PO SCH (09:11)
[2018-06-26] MEDS: BUMETANIDE 1 MG TAB PO SCH (09:11)
[2018-06-26] MEDS: DULoxetine 30 MG CAP PO SCH (09:12)
[2018-06-26] MEDS: CARVEDILOL 25 MG TAB PO SCH (09:13)
[2018-06-26] MEDS: SODIUM CL NASAL 45 ML BTL EACHNARE SCH (09:14)
[2018-06-26] MEDS: INSULIN LISPRO 100 UNIT/ML SC SCH (09:18)
--- NOTE | 2018-06-26 09:30 | PDIAF ---
- Diagnosis Diagnosis: Trimalleolar fracture Code Status: Full Code - Medication Management Discharge Medications: electronically signed and located in the Home Medication List. - Orders Services needed: Registered Nurse, Certified Monument Letterer, Physical Therapy, Occupational Therapy Diet Recommendation: potassium restricted Diet Texture: Regular Texture Diet Additional Instructions: INR goal is 2.5-3.5 with mechanical valve. Will need daily INR and increase Coumadin as needed. - Labs/Radiology BMP Date: 06/27/18 PT/INR Date: 06/27/18 (daily. INR goal 2.5-3.5) - Follow Up Care Current Providers and Referrals: Chandrakant Rodriguez MD [Medical Doctor] - follow up in 1 week (Follow up with Dr. Rodriguez at his [place] office ) Herlinda Olmedo MD [Primary Care Provider] - As per Instructions
--- NOTE | 2018-06-26 10:46 | PDIAF ---
- Diagnosis Diagnosis: Trimalleolar fracture Code Status: Full Code - Medication Management Discharge Medications: electronically signed and located in the Home Medication List. - Orders Services needed: Registered Nurse, Certified Hotel Recreational Facilities Manager, Physical Therapy, Occupational Therapy Diet Recommendation: potassium restricted, fluid restriction (use comment for amount) (1200ml) Diet Texture: Regular Texture Diet Sutures/[place] Site: remove 07/03/18 Additional Instructions: INR goal is 2.5-3.5 with mechanical valve. Next dose 06/27/18 unless INR elevated. Coumadin held 06/26/18. INR 3.44 Will need daily INR and increase Coumadin as needed. - Labs/Radiology BMP Date: 06/27/18 PT/INR Date: 06/27/18 (daily. INR goal 2.5-3.5) - Follow Up Care Current Providers and Referrals: Chandrakant Rodriguez MD [Medical Doctor] - follow up in 1 week (Follow up with Dr. Rodriguez at his [place] office ) Herlinda Olmedo MD [Primary Care Provider] - As per Instructions
[2018-06-26] MEDS ORDERED: POTASSIUM CL 20 MEQ/15 ML UDCUP PO ONE (11:23)
--- NOTE | 2018-06-26 11:23 | SOAPPROG ---
SOAP Progress Note Assessment/Plan: Assessment: 1. crf: creat stable at b/l for past week despite large diuresis. Will have our office arrange weekly labs s/p d/c. 2. overload: excellent diuresis over past week or so but remains sig volume up. Has hx/o hyperK on acei, therefore will need to be very cautious with spironolactone. Dose reduced to 50mg daily, cont current bumex/diamox dosing. On d/c would send out on spironolactone 50mg daily and bumex 1mg bid but no diamox. 3. Met alk: contraction from diuresis but does not appear at all dry. Expect this to slowly resolve with reduction in diuretic dosing. 4. hypoK: would replace prior to d/c. 4. dispo: for d/c today. Bumex/spironolactone as above. Will have our office arrange weekly RFP and f/u with Dr. Lyle in next month or so. Plan: 06/25/18 12:26 06/26/18 11:21 Subjective: Up in chair, planning for d/c to rehab later today. Objective: Vital Signs Temp Pulse Resp BP Pulse Ox 36.8 C 67 21 H 138/64 H 93 06/26/18 07:41 06/26/18 07:41 06/26/18 07:41 06/26/18 07:41 06/26/18 07:41 Laboratory Results 06/24/18 04:49 06/26/18 04:12 06/25/18 06/26/18 06/27/18 05:59 05:59 05:59 Intake Total 250 375 Output Total 1800 1200 1000 Balance -1550 -825 -1000 PT 32.9 SEC (12.0-15.0) H 06/26/18 04:12 INR 3.44 (0.83-1.16) H 06/26/18 04:12 Physical Exam - Physical Exam General Appearance: no apparent distress Respiratory: lungs clear (anteriorly) Cardiac/Chest: irregularly irregular Abdomen: soft Extremities: swelling (LE/dependent edema) ICD10 Worksheet Patient Problems: Problems Problem Status Onset Atrial fibrillation Acute Peripheral edema Acute Skin tear of right upper arm without complication Acute Trimalleolar fracture of ankle, closed Acute UTI (urinary tract infection) Acute Cerebral infarction Active
[2018-06-26] MEDS ORDERED: WARFARIN SODIUM 1 MG TAB PO ONE (12:00)
--- NOTE | 2018-06-26 12:24 | GDS ---
[f rep st] DISCHARGE SUMMARY DISCHARGE DIAGNOSES: 1. Left trimalleolar fracture status post ORIF. 2. Volume overload. 3. CONRAD on CKD. 4. Hypokalemia. 5. Metabolic alkalosis. 6. Mechanical AVR. 7. Atrial fibrillation. 8. Chronic embolic CVA in 2010. 9. Acute blood loss anemia. 10. Epistaxis, questionable upper GI bleed. 11. Acute hypoxic respiratory failure. 12. Osteoporosis. 13. Diabetes. 14. Metabolic encephalopathy. 15. History of SDH in 2010. 16. History of infrarenal AAA. 17. History of MRSA bacteremia. 18. 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 CONSULTATIONS: 1. Orthopedics. 2. Renal. SURGERY: 06/08/2018, ORIF bimalleolar fracture, left ankle. HISTORY OF PRESENT ILLNESS: A 67-year-old female with atrial fibrillation, history of mechanical aor tic valve, CKD, who presents to the ER after found by family lying on the ground in her urine and fec es. Complained of left leg and ankle pain. X-ray demonstrated left trimalleolar fracture. She was admitted for further evaluation and surgical intervention. HOSPITAL COURSE BY PROBLEM: 1. Left trimalleolar fracture: Status post ORIF by Dr. Rodriguez 06/08/2018. She is non-weight bear ing. Follow up in his office. 2. Volume overload. Diuresed with the assistance of Renal. Discharged on Bumex 1 mg twice a day an d Aldactone 50 mg. We will need to watch potassium levels with history of hyperkalemia. 3. CONRAD on CKD: This is improved. 4. Hypokalemia. Gentle repletion with CKD. 5. Metabolic acidosis: This is contraction with aggressive diuresis. She was on acetazolamide but this was discontinued. 6. Mechanical AVR: Was initially bridged with a heparin drip for surgery. She is now on Coumadin. INR is 3.44. We will dose 1 mg today. She will need daily INRs to maintain at goal. 7. Atrial fibrillation. INR is at goal. Continue Coreg. 8. Chronic embolic CVA: In 2010 when off anticoagulation for SDH. 9. Acute blood loss anemia: She had epistaxis here. There was question of possible melena. rock [place] H and H has remained stable. 10. Epistaxis, status post rhino rocket by ENT, now removed. 11. Acute hypoxic respiratory failure, multifactorial, with volume overload, atelectasis. Continue diuresis. 12. Osteoporosis. She needs outpatient followup. 13. Diabetes. Continue Lantus. 14. Metabolic encephalopathy: This resolved. 15. History of SDH in 2010. History of an infrarenal AAA: Status post stent, graft repair. 16. History of remote MRSA bacteremia. 17. Rheumatoid arthritis: Complicated by Felty syndrome. She is not on medications, status post re mote splenectomy. 18. Hypertension. Coreg. 19. Diet, 1 L fluid restriction. DISPOSITION: 1. Patient is stable for discharge to [facility]. MEDICATIONS: See medication reconciliation. We will need to titrate Coumadin for INR goal 2.5-3.5. FOLLOWUP: 1. Dr. Rodriguez. 2. Dr. Olmedo. Monitor potassium level with spironolactone. PHYSICAL EXAMINATION: VITAL SIGNS: Today, temperature 36.8, blood pressure 138/64, heart rate is in the 60s, respirations 21, 93% on 5 L. GENERAL: Overweight, in no acute distress. HEENT: PERRLA. Moist mucous membranes. CV is regular rhythm. +1 lower extremity edema. LUNGS: Diminished breath sounds. ABDOMEN: Obese. MUSCULOSKELETAL: Left foot casted. NEURO: 2 through 12 intact. PSYCH: Alert and oriented x3. Time spent on discharge greater than 30 minutes coordinating with case management for transfer. /[id number]/MODL
--- NOTE | 2018-06-26 13:01 | ASMTDCNOTE ---
Case Management Discharge Discharge Order Complete? Answers: Yes Patient to Obtain Answers: Other Notes: via [facility] in [facility] Medications Transportation Arranged Answers: [facility] Stretcher EMTALA Complete Answers: No Notes: N/A Case Management Transport Answers: Yes Notes: Sent via [facility] online Form Complete Faxed Final Orders Answers: Yes Notes: Discharge orders and paperwork sent via [employer], manual fax and hard copy per Shira 's request. Agency/Facility Transfer Answers: Yes Notes: Discharge orders and Report Printed & Faxed to paperwork sent via Receiving Agency [employer], manual fax and hard copy per Shira 's request. Family Notified Answers: Yes Notes: Pt notified. Discharge Comments Notes: Spoke with SARAH Shanks and Dr. Falk. Pt to discharge to [facility] in [place] today. Transportation previously arranged with [facility] online - BLS, stretcher transport set up for 12:00 today. Call placed to Shira at [facility]. Per Shira, able to accept pt for a start of care today. Discharge orders and paperwork sent via [employer], manual fax and hard copy per Shira's request. Report number provided to SARAH Padgett. Updates and discharge paperwork faxed to [facility]. IM previously signed, copy in chart. Updates provided to Rimma and pt. Call placed to pt's [facility] Cait ; update provided. Pt to follow up as directed. CM available for any further issues or concerns. DIshcarge Plan: [facility] in [place] with [facility] Date Signed: 06/26/2018 01:00 PM Electronically Signed By:Juanita Mejia RN
--- NOTE | 2018-06-26 13:02 | ASDISCHSUM ---
Discharge Information Plan Status:SNF Medically Cleared to Leave:06/26/2018 Discharge Date:06/26/2018 12:00 PM CM D/C Disposition:[facility] ADT D/C Disposition:[facility] Facility Projected Discharge Date:06/06/2018 11:00 AM Transportation at D/C:ALS/BLS Discharge Delay Reason: Follow-Up Date:06/06/2018 11:00 AM Discharge Slot:2 - 12:01 pm - 18:00 pm Final Diagnosis:UTI, ankle fracture, mechanical fall, chronic renal failure Placement Information Referral Type:*Detention/SNF Referral ID:[id number] Provider Name:Juan M villagomez [place] Address 1:[address] Address 2: City:[place] Selection Factors:Patient/Family Choice State:[place] Referral Type:Palliative Care Referral ID:[id number] Provider Name:[facility] Address 1:[address] Address 2: [facility]:[place] Selection Factors:Patient/Family Choice State:[place] Patient Contact Information Contact Name:LOGAN Relationship:Daughter Address: Work Phone: [place] Phone: [facility]/Zip Code:[place] [address] Email: Financial Information Financial Class:Medicare Advantage Plans Primary Plan Desc:[employer] Primary Plan Number:[id number] Secondary Plan Desc:MED[place] Secondary Plan Number:[id number] Assessment Information LACE LACE Acuity / Level of Answers: Yes Care: Did the patient have an inpatient admission? Comorbidities - select Answers: Cerebrovascular disease all that apply (CVA, TIA, aneurysms, vasc ular dementia) Coronary Artery Disease Diabetes (uncontrolled or controlled) Moderate or severe liver or renal disease Other Notes: HTN; HLD # of Emergency department Answers: 1-2 visits in the last 6 months Social determinants Answers: Mental health diagnosis (anxiety, depression, pers onality disorders, etc.) Score: 16 Date Signed: 06/01/2018 09:36 AM Electronically Signed By:Eileen Fuller [facility] CM Progress Note CM Note CM Note Notes: Reviewed chart, pt admitted to hospital after being found down. She has an ankle fracture and will need surgical repair. Patient lives alone in an apt with 2 cats. PT/OT pending surgery DC Plan: TBD Date Signed: 06/01/2018 04:28 PM Electronically Signed By:Denise Munoz RN [facility] CM Progress Note CM Note CM Note Notes: Met with pt, PT recommending SNF although pt has not had surgery yet. MD waiting for INR to go down to 2.0. She is agreeable to SNF, would like referral sent to [place] because that's where her daughter lives. Referral sent to [facility] and they can accept. DC Plan: SNF/ [facility] Date Signed: 06/03/2018 12:17 PM Electronically Signed By:Denise Munoz RN [facility] CM Progress Note CM Note CM Note Notes: Patient is going for left OLIF this afternoon with Dr. Rodriguez. Patient is currently on track for going to [facility] for SNF rehab at discharge. Patient will need another evaluation by PT/OT after surgery. CM will follow. Date Signed: 06/06/2018 10:48 AM Electronically Signed By:Laine Licea LCSW [facility] CM Progress Note CM Note CM Note Notes: PT/OT rec SNF. Pt prefers to return to [place] and go to SNF where she resides at [facility]. Stella ([phone]) is the CM SW at [facility], she has not been able to be reached today, voicemail left. This CM has to confirm [facility] can accept pt for SNF. The hands assembler did not know the admissions fax to send clinicals, voicemail also left with admissions line. D/c plan of care: Likely return to [facility] for SNF Date Signed: 06/08/2018 04:09 PM Electronically Signed By:JUJU Leslie [facility] CM Progress Note CM Note CM Note Notes: PLEASE DISREGARD PREVIOUS CASE MANAGEMENT NOTE ENTERED ON 06/08/18. It was incorrectly inputted. CM discussed case w/ Dr. Tucker. Pt had surgery yesterday w/ Dr. Rodriguez. Pt is not medically stable to d/c at this time. Updates sent to [facility]. CM to follow. Plan: [facility] Date Signed: 06/09/2018 02:12 PM Electronically Signed By:LETTY Espinoza [facility] CM Progress Note CM Note CM Note Notes: CM discussed case w/ Dr. Carranza. Pt will most likely d/c to [facility] tomorrow. CM sent updates. CM met w/ pt and daughter to discuss d/c plan. CM to follow. Plan: [facility] Date Signed: 06/10/2018 03:02 PM Electronically Signed By:LETTY Espinoza [facility] CM Progress Note CM Note CM Note Notes: Patient continues to have ongoing shortness of breath and will likely need O2 at discharge. Patient getting a recheck with chest x-ray. Patient continues to need diuresis given the ongoing anasarca. Discharge plan remains [facility] when patient is ready to discharge. CM will follow. Date Signed: 06/12/2018 12:39 PM Electronically Signed By:Laine Licea LCSW [facility] CM Progress Note CM Note CM Note Notes: Note for today, 06/17/18 Pts case discused w/ Dr. Dickey. Pt will start HD temporarily. Pt is not medically stable to d/c at this time. Update sent to [facility]. CM to follow. Plan: [facility] Note completed on 06/15/18 Pts case discussed w/ Dr. Dickey. Pt will most likely be a couple more days inpatient until d/c to [facility]. Pt is still on a lasix drip and not producing any urine. CM sent updates to [facility]. CM to follow. Plan: [facility] Date Signed: 06/15/2018 11:53 AM Electronically Signed By:ELTTY Espinoza [facility] CM Progress Note CM Note CM Note Notes: Plan of care reviewed with MD. Patient currently being monitored for potential need for HD. Urine output is improving. CM to follow for needs. Plan: To [facility] when medically cleared for discharge to home. Date Signed: 06/20/2018 12:25 PM Electronically Signed By:Lynda Cordero RN [facility] CM Progress Note CM Note CM Note Notes: Updates sent to [facility] in [employer], pt not medically stable for d/c. Palliative team met with pt today(see note), outpatient palliative [facility] to [facility]. CM to follow D/c plan: [facility] when medically stable Date Signed: 06/21/2018 03:55 PM Electronically Signed By:JUJU Leslie [facility] Progress Note CM Note CM Note Notes: Spoke with MD, pt may be able to dc to [facility] on Wednesday. GERRY notified Shira at [facility] and sent updates, pt did not work with PT today so those notes need to be sent tomorrow for re authorization. CM met with pt to discuss, she will work with PT tomorrow. DC Plan: [facility]/ [facility] Date Signed: 06/23/2018 04:30 PM Electronically Signed By:Denise Munoz RN [facility] GERRY Progress Note CM Note CM Note Notes: Hospitalist Dileep indicates pt likely ready for d/c tomorrow to [facility]. [facility] is able to accept pt tomorrow. Stretcher transport pre-arranged online with the [employer] program for Shiar souza at [facility] notified. Updates sent to [facility] in [employer]. Pt is updated and verbalizes she is ready to d/c. Pt [facility] ([phone]) also notified. D/c plan: [facility] tomorrow Date Signed: 06/25/2018 03:39 PM Electronically Signed By:JUJU Leslie Case Management Discharge Plan Note Case Management Discharge Discharge Order Complete? Answers: Yes Patient to Obtain Answers: Other Notes: via [facility] in [facility] Transportation Arranged Answers: SARAH Stretcher EMTALA Complete Answers: No Notes: N/A Case Management Transport Answers: Yes Notes: Sent via [facility] online Form Complete Faxed Final Orders Answers: Yes Notes: Discharge orders and paperwork sent via [employer], manual fax and hard copy per Shira 's request. Agency/Facility Transfer Answers: Yes Notes: Discharge orders and Report Printed & Faxed to paperwork sent via Receiving Agency [employer], manual fax and hard copy per Shira 's request. Family Notified Answers: Yes Notes: Pt notified. Discharge Comments Notes: Spoke with SARAH Shanks and Dr. Falk. Pt to discharge to [facility] in [place] today. Transportation previously arranged with [facility] online - BLS, stretcher transport set up for 12:00 today. Call placed to Shira at [facility]. Per Shira, able to accept pt for a start of care today. Discharge orders and paperwork sent via [employer], manual fax and hard copy per Shira's request. Report number provided to SARAH Padgett. Updates and discharge paperwork faxed to [facility]. IM previously signed, copy in chart. Updates provided to Rimma and pt. Call placed to pt's [facility] ; update provided. Pt to follow up as directed. CM available for any further issues or concerns. DIshcarge Plan: [facility] in [place] with [facility] Date Signed: 06/26/2018 01:00 PM Electronically Signed By:Juanita Mejia RN Intervention Information Intervention Type:*IM-Signed Date of Service:06/10/2018 03:05 PM Patient Type:Inpatient Staff Member:Eileen Fuller Hours: Discipline: Severity: Comment: Intervention Type:*IM-Signed Date of Service:06/24/2018 10:05 AM Patient Type:Inpatient Staff Member:Eileen Fuller Hours: Discipline: Severity: Comment:
== END 2018-06-26 12:00 | DRG 492 ==
LOC: EDUNIT# → F3N 18:38
PROVIDERS: ADMIT Internal Medicine; ATTEND Internal Medicine
PROC: 2Y41X5Z Packing of Nasal Region using Packing Material (ICD-10-PCS; 2018-06-04)
PROC: 093K7ZZ Control Bleeding in Nasal Mucosa and Soft Tissue, Via Natural or Artificial Opening (ICD-10-PCS; 2018-06-04)
PROC: 0QSK04Z Reposition Left Fibula with Internal Fixation Device, Open Approach (ICD-10-PCS; principal; 2018-06-08 08:45)
PROC: 0QSH04Z Reposition Left Tibia with Internal Fixation Device, Open Approach (ICD-10-PCS; principal; 2018-06-08 08:45)
PROC: 02HV33Z Insertion of Infusion Device into Superior Vena Cava, Percutaneous Approach (ICD-10-PCS; 2018-06-17)
DX: S82.852A Displaced trimalleolar fracture of left lower leg, initial encounter for closed fracture (principal); G93.41 Metabolic encephalopathy; I13.0 Hypertensive heart and chronic kidney disease with heart failure and stage 1 through stage 4 chronic kidney disease, or unspecified chronic kidney disease; N18.4 Chronic kidney disease, stage 4 (severe); I50.30 Unspecified diastolic (congestive) heart failure; E11.22 Type 2 diabetes mellitus with diabetic chronic kidney disease; N17.9 Acute kidney failure, unspecified; J96.01 Acute respiratory failure with hypoxia; D62 Acute posthemorrhagic anemia; K92.2 Gastrointestinal hemorrhage, unspecified; E87.6 Hypokalemia; R04.0 Epistaxis; W19.XXXA Unspecified fall, initial encounter; Y92.019 Unspecified place in single-family (private) house as the place of occurrence of the external cause; E87.3 Alkalosis; M06.9 Rheumatoid arthritis, unspecified; M05.00 Felty's syndrome, unspecified site; E21.1 Secondary hyperparathyroidism, not elsewhere classified; I48.2 Chronic atrial fibrillation; I25.10 Atherosclerotic heart disease of native coronary artery without angina pectoris; M81.0 Age-related osteoporosis without current pathological fracture; E78.5 Hyperlipidemia, unspecified; E66.01 Morbid (severe) obesity due to excess calories; Z68.41 Body mass index [BMI] 40.0-44.9, adult; Z86.73 Personal history of transient ischemic attack (TIA), and cerebral infarction without residual deficits; Z95.2 Presence of prosthetic heart valve; Z79.01 Long term (current) use of anticoagulants; Z79.4 Long term (current) use of insulin; Z87.891 Personal history of nicotine dependence; Z86.14 Personal history of Methicillin resistant Staphylococcus aureus infection
CPT/HCPCS: 85520-90; 86704-90; 86705-90; 96374; 97116-GP; 97162-GP; 97164-GP; 97166-GO; 97168-GO; 97530-GO; 97530-GP; 97535-GO; C1713; C1769; J0690; J0696; J1642; J1644; J1815; J1940; J2250; J2405; J2704; J2765; J2795; J3010; J7613; P9047